=== PATIENT | female | born 1955 ===

== ENCOUNTER → 2019-12-26 10:12 | Outpatient (BNVA) | payer MEDICARE, MEDICAID, SELFPAY | PROVIDERS: Visit Provider Obstetrics & Gynecology | DX: Z76.89 Persons encountering health services in other specified circumstances (principal) ==

== ENCOUNTER 2020-09-02 12:38 | Outpatient (REF) | payer OTHER, SELFPAY ==
[2020-09-02 13:59] LABS: INTERNATIONAL NORM RATIO 1.2 (0.9-1.1); Prothrombin Time 13.7 SEC (9.9-13.0)
[2020-09-02 14:32] LABS: Alanine Aminotransferase 110 U/L (0-31); Albumin Level 4.2 g/dL (3.5-5.0); Alkaline Phosphatase 104 U/L (39-117); Anion Gap 14 (12-20); Aspartate Amino Transferase 82 U/L (5-31); Bilirubin Total 0.7 mg/dL (0.0-1.0); Blood Urea Nitrogen 19 mg/dL (9-16); Calcium 9.7 mg/dL (8.4-10.2); Carbon Dioxide 24 mmol/L (22-29); Chloride 106 mmol/L (96-108); Estimated Glomerular Filt Rate > 60; Glucose Random 107 mg/dL (60-115); Potassium 4.4 mmol/L (3.3-5.1); Sodium 140 mmol/L (135-145); Total Protein 7.2 g/dL (6.5-8.0)
[2020-09-04 03:57] LABS: LDL Cholesterol Direct 205 mg/dL (<100)
[2020-09-07 13:36] LABS: Vitamin D 25-OH, D2 <4 ng/mL; Vitamin D 25-OH, D3 21 ng/mL; Vitamin D 25-OH, Total 21 ng/mL (30-100)
== END 2020-09-02 12:39 | disposition home or self-care (01) ==
LOC: HO.HMGCLDS 12:38
PROVIDERS: PCP Internal Medicine; Visit Provider Internal Medicine
DX: E78.9 Disorder of lipoprotein metabolism, unspecified (principal); R79.89 Other specified abnormal findings of blood chemistry; Z79.01 Long term (current) use of anticoagulants
CPT/HCPCS: 36415; 80053; 82306; 83721; 85610

== ENCOUNTER 2021-07-12 09:32 | Outpatient (REF) | payer OTHER, SELFPAY ==
[2021-07-12 11:14] LABS: MANUAL DIFF FLAG NO
[2021-07-12 11:19] LABS: Basophils Percent Auto 0.7 % (0-2); Eosinophils Absolute Auto 0.2 X10*3/uL (0.0-0.4); Eosinophils Percent Auto 2.9 % (0-4); Hematocrit 46.4 % (37.0-47.0); Hemoglobin 14.7 g/dl (12.0-16.0); Imm Gran Abs Auto 0.03 X10*3/uL (0.00-0.03); Imm Gran Pct Auto 0.5 % (0.0-0.4); Lymphocytes Absolute Auto 1.3 X10*3/uL (1.2-4.9); Lymphocytes Percent Auto 22.7 % (20-40); Mean Corpuscular HGB Conc 31.7 g/dl (31.0-35.0); Mean Corpuscular Hemoglobin 29.6 pg (27.0-33.0); Mean Corpuscular Volume 93.4 fL (80.0-98.0); Mean Platelet Volume 12.3 fL (9.4-12.3); Monocytes Absolute Auto 0.5 X10*3/uL (0.1-1.2); Neutrophils Absolute Auto 3.8 x10*3/uL (2.0-8.3); Neutrophils Percent Auto 65.2 % (45-73); Platelet Count 248 X10*3/uL (160-400); Red Blood Count 4.97 X10*6/uL (4.20-5.50); Red Cell Distribution Width 14.5 % (11.0-16.0); White Blood Count 5.8 X10*3/uL (4.8-10.8)
[2021-07-12 11:26] LABS: INTERNATIONAL NORM RATIO 1.2 (0.9-1.1)
[2021-07-12 11:51] LABS: Alanine Aminotransferase 76 U/L (0-31); Albumin Level 4.2 g/dL (3.5-5.0); Alkaline Phosphatase 111 U/L (39-117); Anion Gap 16 (12-20); Aspartate Amino Transferase 53 U/L (5-31); Bilirubin Total 0.6 mg/dL (0.0-1.0); Blood Urea Nitrogen 19 mg/dL (9-16); Calcium 10.8 mg/dL (8.4-10.2); Carbon Dioxide 23 mmol/L (22-29); Chloride 103 mmol/L (96-108); Cholesterol 256 mg/dL; Estimated Glomerular Filt Rate > 60; Glucose Fasting 104 mg/dL (60-99); HDL Cholesterol 50 mg/dL; LDL Cholesterol Calculated 188 mg/dl; Potassium 4.3 mmol/L (3.3-5.1); Sodium 138 mmol/L (135-145); Total Protein 7.5 g/dL (6.5-8.0); Triglycerides 92 mg/dL
[2021-07-12 11:53] LABS: TSH reflex Free T4 2.04 uIU/mL (0.32-4.0)
== END 2021-07-12 09:33 | disposition home or self-care (01) ==
LOC: HO.HMGCLDS 09:32
PROVIDERS: Visit Provider Internal Medicine
DX: I09.9 Rheumatic heart disease, unspecified (principal); E78.9 Disorder of lipoprotein metabolism, unspecified; I10 Essential (primary) hypertension; R10.13 Epigastric pain; R79.89 Other specified abnormal findings of blood chemistry; Z91.19 Patient's noncompliance with other medical treatment and regimen; Z95.0 Presence of cardiac pacemaker; Z95.2 Presence of prosthetic heart valve; Z79.01 Long term (current) use of anticoagulants
CPT/HCPCS: 36415; 80053; 80061; 84443; 85025; 85610

== ENCOUNTER → 2021-08-02 14:05 | Outpatient (BNVA) | payer OTHER, SELFPAY | PROVIDERS: PCP Internal Medicine; Visit Provider Internal Medicine | DX: I09.9 Rheumatic heart disease, unspecified (principal); Z79.01 Long term (current) use of anticoagulants; Z51.81 Encounter for therapeutic drug level monitoring | CPT/HCPCS: 85610; 99202 ==

== ENCOUNTER → 2021-08-06 13:26 | Outpatient (BNVA) | payer OTHER, SELFPAY | PROVIDERS: PCP Internal Medicine; Visit Provider Internal Medicine | DX: I09.9 Rheumatic heart disease, unspecified (principal); Z95.0 Presence of cardiac pacemaker; Z95.2 Presence of prosthetic heart valve; Z79.01 Long term (current) use of anticoagulants; Z51.81 Encounter for therapeutic drug level monitoring | CPT/HCPCS: 85610; 99212 ==

== ENCOUNTER → 2021-08-09 11:11 | Outpatient (BNVA) | payer OTHER, SELFPAY | PROVIDERS: PCP Internal Medicine; Visit Provider Internal Medicine | DX: I09.9 Rheumatic heart disease, unspecified (principal); Z79.01 Long term (current) use of anticoagulants; Z95.0 Presence of cardiac pacemaker; Z95.2 Presence of prosthetic heart valve; Z51.81 Encounter for therapeutic drug level monitoring | CPT/HCPCS: 85610; 99211 ==

== ENCOUNTER → 2021-08-13 11:19 | Outpatient (BNVA) | payer OTHER, SELFPAY | PROVIDERS: PCP Internal Medicine; Visit Provider Internal Medicine | DX: I09.9 Rheumatic heart disease, unspecified (principal); Z79.01 Long term (current) use of anticoagulants; Z51.81 Encounter for therapeutic drug level monitoring | CPT/HCPCS: 85610; 99211 ==

== ENCOUNTER → 2021-08-19 09:19 | Outpatient (BNVA) | payer OTHER, SELFPAY | PROVIDERS: PCP Internal Medicine; Visit Provider Internal Medicine | DX: I09.9 Rheumatic heart disease, unspecified (principal); Z51.81 Encounter for therapeutic drug level monitoring; Z79.01 Long term (current) use of anticoagulants | CPT/HCPCS: 85610; 99211 ==

== ENCOUNTER → 2021-08-26 09:04 | Outpatient (BNVA) | payer OTHER, SELFPAY | PROVIDERS: PCP Internal Medicine; Visit Provider Internal Medicine | DX: I09.9 Rheumatic heart disease, unspecified (principal); Z51.81 Encounter for therapeutic drug level monitoring; Z79.01 Long term (current) use of anticoagulants | CPT/HCPCS: 85610; 99211 ==

== ENCOUNTER → 2021-09-02 09:15 | Outpatient (BNVA) | payer OTHER, SELFPAY | PROVIDERS: PCP Internal Medicine; Visit Provider Internal Medicine | DX: I09.9 Rheumatic heart disease, unspecified (principal); Z95.0 Presence of cardiac pacemaker; Z95.2 Presence of prosthetic heart valve; Z51.81 Encounter for therapeutic drug level monitoring; Z79.01 Long term (current) use of anticoagulants | CPT/HCPCS: 85610; 99211 ==

== ENCOUNTER → 2021-09-10 13:33 | Outpatient (BNVA) | payer OTHER, SELFPAY | PROVIDERS: PCP Internal Medicine; Visit Provider Internal Medicine | DX: I09.9 Rheumatic heart disease, unspecified (principal); Z95.0 Presence of cardiac pacemaker; Z95.2 Presence of prosthetic heart valve; Z51.81 Encounter for therapeutic drug level monitoring; Z79.01 Long term (current) use of anticoagulants | CPT/HCPCS: 85610; 99211 ==

== ENCOUNTER → 2021-09-14 11:28 | Outpatient (BNVA) | payer OTHER, SELFPAY | PROVIDERS: PCP Internal Medicine; Visit Provider Nurse Practitioner | DX: K21.9 Gastro-esophageal reflux disease without esophagitis (principal); Z12.11 Encounter for screening for malignant neoplasm of colon; D12.6 Benign neoplasm of colon, unspecified; R10.13 Epigastric pain; Z79.01 Long term (current) use of anticoagulants | CPT/HCPCS: 99202; 99212 ==

== ENCOUNTER → 2021-09-16 11:18 | Outpatient (BNVA) | payer OTHER, SELFPAY | PROVIDERS: PCP Internal Medicine; Visit Provider Internal Medicine | DX: I09.9 Rheumatic heart disease, unspecified (principal); Z79.01 Long term (current) use of anticoagulants | CPT/HCPCS: 85610; 99211 ==

== ENCOUNTER → 2021-09-23 10:00 | Outpatient (BNVA) | payer OTHER, SELFPAY | PROVIDERS: PCP Internal Medicine; Visit Provider Internal Medicine | DX: I09.9 Rheumatic heart disease, unspecified (principal); Z79.01 Long term (current) use of anticoagulants; Z51.81 Encounter for therapeutic drug level monitoring | CPT/HCPCS: 85610; 99211 ==

== ENCOUNTER → 2021-09-30 09:59 | Outpatient (BNVA) | payer OTHER, SELFPAY | PROVIDERS: PCP Internal Medicine; Visit Provider Internal Medicine | DX: I09.9 Rheumatic heart disease, unspecified (principal); Z79.01 Long term (current) use of anticoagulants; Z51.81 Encounter for therapeutic drug level monitoring | CPT/HCPCS: 85610; 99211 ==

== ENCOUNTER → 2021-10-15 10:17 | Outpatient (BNVA) | payer OTHER, SELFPAY | PROVIDERS: PCP Internal Medicine; Visit Provider Internal Medicine | DX: I09.9 Rheumatic heart disease, unspecified (principal); Z51.81 Encounter for therapeutic drug level monitoring; Z79.01 Long term (current) use of anticoagulants; Z95.0 Presence of cardiac pacemaker; Z95.2 Presence of prosthetic heart valve | CPT/HCPCS: 85610; 99211 ==

== ENCOUNTER → 2021-10-22 10:41 | Outpatient (BNVA) | payer OTHER, SELFPAY | PROVIDERS: PCP Internal Medicine; Visit Provider Internal Medicine | DX: I09.9 Rheumatic heart disease, unspecified (principal); Z79.01 Long term (current) use of anticoagulants; Z51.81 Encounter for therapeutic drug level monitoring | CPT/HCPCS: 85610; 99211 ==

== ENCOUNTER → 2021-11-01 11:38 | Outpatient (BNVA) | payer OTHER, SELFPAY | PROVIDERS: PCP Internal Medicine; Visit Provider Internal Medicine | DX: I09.9 Rheumatic heart disease, unspecified (principal); Z79.01 Long term (current) use of anticoagulants; Z51.81 Encounter for therapeutic drug level monitoring | CPT/HCPCS: 85610; 99212 ==

== ENCOUNTER → 2021-11-05 11:03 | Outpatient (BNVA) | payer OTHER, SELFPAY | PROVIDERS: PCP Internal Medicine; Visit Provider Internal Medicine | DX: I09.9 Rheumatic heart disease, unspecified (principal); Z79.01 Long term (current) use of anticoagulants; Z51.81 Encounter for therapeutic drug level monitoring | CPT/HCPCS: 85610; 99211 ==

== ENCOUNTER → 2021-11-11 08:55 | Outpatient (BNVA) | payer OTHER, SELFPAY | PROVIDERS: PCP Internal Medicine; Referring Provider Internal Medicine; Visit Provider Nurse Practitioner | DX: K21.9 Gastro-esophageal reflux disease without esophagitis (principal); D12.6 Benign neoplasm of colon, unspecified; R10.13 Epigastric pain; I09.9 Rheumatic heart disease, unspecified; Z51.81 Encounter for therapeutic drug level monitoring; Z79.01 Long term (current) use of anticoagulants | CPT/HCPCS: 85610; 99211; 99212 ==

== ENCOUNTER → 2021-11-24 10:18 | Outpatient (BNVA) | payer OTHER, SELFPAY | PROVIDERS: PCP Internal Medicine; Visit Provider Internal Medicine | DX: I09.9 Rheumatic heart disease, unspecified (principal); Z79.01 Long term (current) use of anticoagulants; Z51.81 Encounter for therapeutic drug level monitoring | CPT/HCPCS: 85610; 99211 ==

== ENCOUNTER → 2021-11-30 10:23 | Outpatient (BNVA) | payer OTHER, SELFPAY | PROVIDERS: PCP Internal Medicine; Visit Provider Internal Medicine | DX: I09.9 Rheumatic heart disease, unspecified (principal); Z79.01 Long term (current) use of anticoagulants; Z51.81 Encounter for therapeutic drug level monitoring | CPT/HCPCS: 85610; 99211 ==

== ENCOUNTER → 2021-12-03 10:26 | Outpatient (BNVA) | payer OTHER, SELFPAY | PROVIDERS: PCP Internal Medicine; Visit Provider Internal Medicine | DX: I09.9 Rheumatic heart disease, unspecified (principal); Z79.01 Long term (current) use of anticoagulants; Z51.81 Encounter for therapeutic drug level monitoring | CPT/HCPCS: 85610; 99211 ==

== ENCOUNTER → 2021-12-06 10:39 | Outpatient (BNVA) | payer OTHER, SELFPAY | PROVIDERS: PCP Internal Medicine; Visit Provider Internal Medicine | DX: I09.9 Rheumatic heart disease, unspecified (principal); Z79.01 Long term (current) use of anticoagulants; Z51.81 Encounter for therapeutic drug level monitoring | CPT/HCPCS: 85610; 99211 ==

== ENCOUNTER → 2021-12-14 10:38 | Outpatient (BNVA) | payer OTHER, SELFPAY | PROVIDERS: PCP Internal Medicine; Visit Provider Internal Medicine | DX: I09.9 Rheumatic heart disease, unspecified (principal); Z79.01 Long term (current) use of anticoagulants; Z51.81 Encounter for therapeutic drug level monitoring | CPT/HCPCS: 85610; 99212 ==

== ENCOUNTER 2022-08-09 10:58 | Outpatient (REF) | payer OTHER, SELFPAY ==
[2022-08-09 15:01] LABS: MANUAL DIFF FLAG NO
[2022-08-09 15:16] LABS: Basophils Absolute Auto 0.1 X10*3/uL (0.0-0.2); Basophils Percent Auto 0.7 % (0-2); Eosinophils Absolute Auto 0.3 X10*3/uL (0.0-0.4); Eosinophils Percent Auto 4.1 % (0-4); Hematocrit 41.5 % (37.0-47.0); Imm Gran Abs Auto 0.03 X10*3/uL (0.00-0.03); Imm Gran Pct Auto 0.4 % (0.0-0.4); Lymphocytes Absolute Auto 1.7 X10*3/uL (1.2-4.9); Lymphocytes Percent Auto 23.6 % (20-40); Mean Corpuscular HGB Conc 31.3 g/dl (31.0-35.0); Mean Corpuscular Hemoglobin 28.4 pg (27.0-33.0); Mean Corpuscular Volume 90.8 fL (80.0-98.0); Mean Platelet Volume 12.3 fL (9.4-12.3); Monocytes Absolute Auto 0.5 X10*3/uL (0.1-1.2); Monocytes Percent Auto 6.7 % (2-11); Neutrophils Absolute Auto 4.5 x10*3/uL (2.0-8.3); Neutrophils Percent Auto 64.5 % (45-73); Platelet Count 277 X10*3/uL (160-400); Red Blood Count 4.57 X10*6/uL (4.20-5.50); Red Cell Distribution Width 14.5 % (11.0-16.0)
[2022-08-09 15:31] LABS: Estimated Average Glucose 103 mg/dL; Hemoglobin A1C 118.4161 umol/L; Hemoglobin A1c % 5.2 %
[2022-08-09 15:47] LABS: Alanine Aminotransferase 16 U/L (0-31); Albumin Level 4.2 g/dL (3.5-5.0); Alkaline Phosphatase 70 U/L (39-117); Anion Gap 13 (12-20); Aspartate Amino Transferase 22 U/L (5-31); Bilirubin Total 0.4 mg/dL (0.0-1.0); Blood Urea Nitrogen 15 mg/dL (9-16); Calcium 10.3 mg/dL (8.4-10.2); Carbon Dioxide 23 mmol/L (22-29); Chloride 107 mmol/L (96-108); Estimated Glomerular Filt Rate > 60; Glucose Random 96 mg/dL (60-115); Potassium 4.3 mmol/L (3.3-5.1); Sodium 139 mmol/L (135-145); Total Protein 7.7 g/dL (6.5-8.0)
[2022-08-11 13:19] LABS: LDL Cholesterol Direct 145 mg/dL (<100)
== END 2022-08-09 10:59 | disposition home or self-care (01) ==
LOC: HO.HMGCLDS 10:58
PROVIDERS: PCP Internal Medicine; Visit Provider Internal Medicine
DX: E78.9 Disorder of lipoprotein metabolism, unspecified (principal); F33.9 Major depressive disorder, recurrent, unspecified; I09.9 Rheumatic heart disease, unspecified; I10 Essential (primary) hypertension; R73.9 Hyperglycemia, unspecified; Z79.01 Long term (current) use of anticoagulants
CPT/HCPCS: 36415; 80053; 83036; 83721; 85025

== ENCOUNTER 2023-07-12 09:42 | Outpatient (AMB) | payer OTHER, SELFPAY ==
--- NOTE | 2023-07-12 09:59 | AM.OFFWIN_ITS ---
Intake Vital Signs 07/12/23 10:00 Height 5 ft 4 in BP 142/80 H Blood Pressure Location Rt brachial Position Sitting Pulse 64 Pulse Source Pulse Oximeter Pulse Oximetry (%) 97 Intake Visit Reasons: EP UTI? Intake Note: pt is here for possible uti Patient Tobacco Use Status: Never used Tobacco Allergies penicillin G Allergy (Intermediate, Verified 07/12/23 09:59) rash Iodinated Contrast Media [IV Contrast Dye] Allergy (Unknown, Verified 07/12/23 09:59) Unknown hydrochlorothiazide Adverse Reaction (Intermediate, Verified 07/12/23 09:59) Vomiting seafood Allergy (Unknown, Uncoded 12/14/21 10:34) unknown-listed from another source Do you need a note to return to daycare/school/sports/work: No HPI HPI Comments History of Present Illness Details 68 y/o female patient who presents to [facility] with c/o Urinary symptoms PFSH Medical History Acid reflux Current use of anticoagulant therapy CVA (cerebral vascular accident) Depression Esophageal cancer GERD (gastroesophageal reflux disease) HTN (hypertension) Hx of hyperlipidemia Rheumatic heart disease Surgical History H/O colonoscopy History of cholecystectomy History of mitral valve replacement Family History Father Throat cancer Other Mental health disorder Substance use disorder Social History Housing: Apartment Alcohol intake: current Patient Tobacco Use Status: Never used Tobacco e-Cigarette/Vaping Use: Never Used service: No Current occupational status: retired Sexual orientation: Straight/Heterosexual Gender identity: Female Cognitive needs: No Hearing needs: No Vision needs: Yes Review of Systems Const All systems reviewed & are unremarkable except as noted in HPI and below Physical Exam Vital Signs: Last Vital Signs Pulse 64 07/12/23 10:00 BP 142/80 H 07/12/23 10:00 Pulse Ox 97 07/12/23 10:00 Const General: comfortable and no acute distress Orientation/consciousness: patient oriented x3 Limitations: language barrier Neuro General: patient oriented x3 and gait normal Psych Speech and movement: Normal speech and movement present Assessment & Plan Assessment & Plan (1) Cystitis: Code(s): N30.90 - Cystitis, unspecified without hematuria Plan: - Hydrate with plenty fluids. - Take medicines as directed. Medications: New nitrofurantoin monohyd/m-cryst 100 mg (Macrobid) must administer with a meal/food 100 mg PO Q12H 14 caps 0RF 7 days N30.90 - Cystitis, unspecified without hematuria Coding Level of Care Code Est Pt Level 3 (94503) Diagnoses Cystitis N30.90 Time Spent (min) 15
[2023-07-12 10:00] VITALS: BP 142/80; PULSE 64; O2SAT 97
== END 2023-07-12 10:25 | disposition home or self-care (01) ==
PROVIDERS: PCP Internal Medicine; Visit Provider Nurse Practitioner Family
DX: N30.90 Cystitis, unspecified without hematuria (principal)
CPT/HCPCS: 99213

== ENCOUNTER 2023-08-22 11:06 | Outpatient (AMB) | payer OTHER, SELFPAY ==
[2023-08-22 11:09] VITALS: BP 178/80; PULSE 68; O2SAT 98; BMI 26.0
--- NOTE | 2023-08-22 11:09 | MHC.PC.OV ---
Vital Signs 08/22/23 11:09 Height 5 ft 4 in Weight 151 lb 8 oz BMI 26.0 BP 178/80 H Blood Pressure Location Lt brachial Position Sitting Pulse 68 Pulse Source Pulse Oximeter Pulse Oximetry (%) 98 Oxygen Delivery Method Room Air Intake Visit Reasons: PE Allergies penicillin G Allergy (Intermediate, Verified 08/22/23 12:04) rash Iodinated Contrast Media [IV Contrast Dye] Allergy (Unknown, Verified 08/22/23 12:04) Unknown hydrochlorothiazide Adverse Reaction (Intermediate, Verified 08/22/23 12:04) Vomiting seafood Allergy (Unknown, Uncoded 12/14/21 10:34) unknown-listed from another source Medication List - Last Reconciled 08/22/23 by Callum Muñoz MD [Blood pressure monitor As directed] cetirizine (Zyrtec) 10 mg PO DAILY 90 days diltiazem HCl CD 120 mg PO DAILY 90 days naphazoline-pheniramine 0.025-0.3 % (Naphcon-A) 1 drp ophthalmic (eye) BID-QID PRN 30 days nitrofurantoin monohyd/m-cryst 100 mg (Macrobid) 100 mg PO Q12H 7 days pantoprazole (Protonix) 40 mg PO DAILY rosuvastatin 10 mg PO DAILY 90 days warfarin See Protocol Per protocol, up to 2 tabs daily orally daily; 30 days wheat dextrin (Benefiber Healthy Shape) grams PO Tobacco use date assessed: 08/22/23 Fall risk assessment: No Falls in past year Last assessed Fall Risk: 08/22/23 Dental Screening Dental Screen Date: 08/22/23 Did you have a dental visit in the last 12 months?: Yes Did you have a dental problem in the last 6 months where you did not have access to dental care?: No Was dental information given to patient?: Patient has dentist HPI PE HPI Details Patient is a 68-year-old female came in today for physical examination with her son Who will be living with her and taking care of her Mammogram was April of this year at [facility] Patient says that she has a history of gastric ulcer and she is having epigastric pain Need to see Gastroenterology Patient also have rheumatic heart disease and a pacemaker She is seeing process area supervisor at [facility] but I do not think she is currently seeing anyone I have placed a referral for [facility] Her blood pressure is elevated she is supposed to be on Cardizem 120 mg which patient is not taking Explained to her that she can have a stroke with such a high pressure, I would recommend that start taking medication regularly. She also chronic right ear pain and need to see the ear doctor On examination today I did not see any infection Follow-up 3 months physical exam 1 year [facility] Medical History GERD (gastroesophageal reflux disease) HTN (hypertension) Depression CVA (cerebral vascular accident) Esophageal cancer Rheumatic heart disease Current use of anticoagulant therapy Acid reflux Hx of hyperlipidemia Surgical History History of mitral valve replacement H/O colonoscopy History of cholecystectomy Family History Father Throat cancer Other Mental health disorder Substance use disorder Social History Housing: Apartment Alcohol intake: current Patient Tobacco Use Status: Never used Tobacco e-Cigarette/Vaping Use: Never Used service: No Current occupational status: retired Sexual orientation: Straight/Heterosexual Gender identity: Female Cognitive needs: No Hearing needs: No Vision needs: Yes Questionnaire PHQ-9 Over the last 2 weeks, how often have you been bothered by any of the following problems? 08273 - PHQ-9 Billing: Patient declined-do not bill Source: Developed by Drs. Wilberto Wilson, Radha Page, Rufino Anand and colleagues, with an educational navid from [employer] Thrive Questionnaire Date Thrive assessed: 10/27/21 AUDIT C Alcohol Use Questionnaire (AUDIT-C) 1. How often do you have a drink containing alcohol?: Never 3. How often do you have six or more drinks on one occasion?: Never Total Score: 0 Score Reviewed/Action Taken: Yes IVON-7 AMB Questionnaire IVON-7 Date IVON - 7 assessed: 10/27/21 Source: Developed by Drs. Wilberto Wilson, Radha Page, Rufino Anand and colleagues, with an educational navid from [employer] Review of Systems Const Denies chills, Denies fever(s) and Denies headache(s) Eyes Denies blurry vision ENT Denies headache(s), Denies nasal discharge, Denies nasal obstruction, Denies odynophagia and Denies sinus pain Card Denies chest pain at rest and Denies chest pain with activity Resp Denies cough and Denies hemoptysis GI Denies diarrhea, Denies odynophagia, Denies vomiting and Denies hematemesis Reports as per HPI Musc Denies abnormal gait Skin/Breast Reports as per HPI Neuro Denies Neuro-related abnormal movements, Denies Abnormal speech present, Denies abnormal gait, Denies headache(s) and Denies Sensory deficit (Neuro) Psych Denies mood swings and Denies paranoia Endo Reports as per HPI Alonso/Lymph Reports as per HPI Aller/Immun Reports as per HPI Physical exam (Primary Care) Vital Signs: Last Vital Signs Pulse 68 08/22/23 11:09 BP 178/80 H 08/22/23 11:09 Pulse Ox 98 08/22/23 11:09 Oxygen Delivery Method Room Air 08/22/23 11:09 BMI result Body Mass Index 26.0 Tobacco/Smoking Status: Tobacco use Status Tobacco use date assessed 08/22/23 08/22/23 12:04 Patient Tobacco Use Status Never used Tobacco 08/22/23 11:12 e-Cigarette/Vaping Use Never Used 08/22/23 11:12 Thrive Assessment: Date of Thrive Assessment Date Thrive assessed 10/27/21 08/22/23 11:12 Const General: cooperative, comfortable and no acute distress Orientation/consciousness: patient oriented x3 HENMT Head: Yes normocephalic and Yes atraumatic Eyes General: appearance normal, both eyes and all related structures Pupils: Equal, round and reactive pupils present EOM: EOMs intact bilaterally Neck Neck: Yes supple and No lymphadenopathy Thyroid: Thyroid normal Lymphatic: no lymphadenopathy noted Resp Effort & Inspection: normal respiratory effort and able to speak in complete sentences Auscultation: clear to auscultation bilaterally Cardio Heart sounds: S1 normal heart sound present and S2 normal heart sound present GI Palpation (GI): Soft to palpation and nontender Auscultation: normal bowel sounds General: Yes no CVA tenderness Back/Spine/Pelvis Back: no CVA tenderness Skin General skin exam: elasticity normal and turgor normal Neuro General: patient oriented x3 and gait normal Cranial nerves: Yes Equal, round and reactive pupils present Speech: No Abnormal speech present Sensory Exam: No Sensory deficit (Neuro) Coordination: Romberg test negative Extrem General: Yes normal exam except as noted and No edema Assessment and Plan Assessment & Plan (1) Encounter for general adult medical examination with abnormal findings: Code(s): Z00.01 - Encounter for general adult medical examination with abnormal findings (2) Hypertension, essential: Code(s): I10 - Essential (primary) hypertension (3) Lipid disorder: Code(s): E78.9 - Disorder of lipoprotein metabolism, unspecified (4) LFT elevation: Code(s): R79.89 - Other specified abnormal findings of blood chemistry (5) Rheumatic heart disease: Code(s): I09.9 - Rheumatic heart disease, unspecified (6) GERD (gastroesophageal reflux disease): Code(s): K21.9 - Gastro-esophageal reflux disease without esophagitis Qualifiers: Esophagitis presence: without esophagitis Qualified Code(s): K21.9 - Gastro-esophageal reflux disease without esophagitis (7) Epigastric pain: Code(s): R10.13 - Epigastric pain (8) Status post mitral valve replacement: Code(s): Z95.2 - Presence of prosthetic heart valve (9) Cardiac pacemaker: Code(s): Z95.0 - Presence of cardiac pacemaker (10) Chronic right ear pain: Code(s): H92.01 - Otalgia, right ear; G89.29 - Other chronic pain Plan Patient is a 68-year-old female came in today for physical examination with her son Who will be living with her and taking care of her Mammogram was April of this year at [facility] Patient says that she has a history of gastric ulcer and she is having epigastric pain Need to see Gastroenterology Patient also have rheumatic heart disease and a pacemaker She is seeing process area supervisor at [facility] but I do not think she is currently seeing anyone I have placed a referral for [facility] Her blood pressure is elevated she is supposed to be on Cardizem 120 mg which patient is not taking Explained to her that she can have a stroke with such a high pressure, I would recommend that start taking medication regularly. She also chronic right ear pain and need to see the ear doctor On examination today I did not see any infection Follow-up 3 months physical exam 1 year Patient declined breast exam failed walk Orders: Orders Comprehensive Met. Panel Today E78.9 - Disorder of lipoprotein metabolism, unspecified, F33.9 - Major depressive disorder, recurrent, unspecified, I09.9 - Rheumatic heart disease, unspecified, I10 - Essential (primary) hypertension, K21.9 - Gastro-esophageal reflux disease without esophagitis, R79.89 - Other specified abnormal findings of blood chemistry, Z00.01 - Encounter for general adult medical examination with abnormal findings Complete Blood Count Auto Diff Today E78.9 - Disorder of lipoprotein metabolism, unspecified, F33.9 - Major depressive disorder, recurrent, unspecified, I09.9 - Rheumatic heart disease, unspecified, I10 - Essential (primary) hypertension, K21.9 - Gastro-esophageal reflux disease without esophagitis, R79.89 - Other specified abnormal findings of blood chemistry, Z00.01 - Encounter for general adult medical examination with abnormal findings LDL Cholesterol Direct Today E78.9 - Disorder of lipoprotein metabolism, unspecified, F33.9 - Major depressive disorder, recurrent, unspecified, I09.9 - Rheumatic heart disease, unspecified, I10 - Essential (primary) hypertension, K21.9 - Gastro-esophageal reflux disease without esophagitis, R79.89 - Other specified abnormal findings of blood chemistry, Z00.01 - Encounter for general adult medical examination with abnormal findings Referrals Gastroenterology Referral K21.9 - Gastro-esophageal reflux disease without esophagitis, R10.13 - Epigastric pain Cardiology Referral I09.9 - Rheumatic heart disease, unspecified, Z95.0 - Presence of cardiac pacemaker, Z95.2 - Presence of prosthetic heart valve Ear/Nose/Throat Referral G89.29 - Other chronic pain, H92.01 - Otalgia, right ear Coding Level of Care Code Est Pt Level 4 (37423) Est Pt Prev Care >65y(08086) Diagnoses Encounter for general adult medical examination with abnormal findings Z00.01 Hypertension, essential I10 Lipid disorder E78.9 LFT elevation R79.89 Rheumatic heart disease I09.9 Gastroesophageal reflux disease without esophagitis K21.9 Esophagitis presence: without esophagitis Epigastric pain R10.13 Status post mitral valve replacement Z95.2 Cardiac pacemaker Z95.0 Chronic right ear pain H92.01; G89.29
== END 2023-08-22 12:24 | disposition home or self-care (01) ==
PROVIDERS: PCP Internal Medicine; Visit Provider Internal Medicine
DX: Z00.00 Encounter for general adult medical examination without abnormal findings (principal); I10 Essential (primary) hypertension; E78.9 Disorder of lipoprotein metabolism, unspecified; R79.89 Other specified abnormal findings of blood chemistry; I09.9 Rheumatic heart disease, unspecified; K21.9 Gastro-esophageal reflux disease without esophagitis; R10.13 Epigastric pain; Z95.2 Presence of prosthetic heart valve; Z95.0 Presence of cardiac pacemaker; H92.01 Otalgia, right ear; G89.29 Other chronic pain
CPT/HCPCS: 99397

== ENCOUNTER 2024-04-10 13:20 | Outpatient (REF) | payer OTHER, SELFPAY ==
--- NOTE | ~2024-04-10 | XR_ITS ---
EXAMINATION: XR CHEST CLINICAL INFORMATION: J18.9 - Pneumonia, unspecified organism COMPARISON: None available. TECHNIQUE: 2 views of the chest were obtained. FINDINGS: Pulmonary reticular pattern. Prominence of the interstitial lung markings extending from the perihilar regions to the periphery of the lungs. There is a lobulated opacity in the right hemithorax likely posterior chest and possibly in the pleura compartment. Sternal wires. There is a metallic ring in the lower cardiomediastinal silhouette. Calcified plaque thoracic aorta. Multilevel thoracic spondylosis. XR/XR chest 2V IMPRESSION: Acute on chronic airspace disease versus pulmonary edema and questionable loculated right-sided pleural effusion versus pleural thickening. Recommend IV contrast enhanced CT chest for further imaging evaluation. Electronically signed by: Tonny Kern MD 04/11/2024 01:44 PM EST
--- OUTSIDE RECORDS SUMMARY | 2024-04-10 14:28 | XMS_ITS | Encounter Summary ---
Author Organization [facility] Address [address] [place] [address] Care Team Providers Care Speech And Language Tutor Name Role Phone Chris Potts Primary Care Provider Callum Desir MD Primary Care Provider Unavailgenesis white Reason for Visit * Reason Onset Date Comments Call From Patient Family 08/28/2018 Encounter Details Date Type Department Care Team Description 08/28/2018 Telephone Gastroenterology - [place] [address] [place] [address] Varun Price PA-C Call From Patient Family Social History Tobacco Use Types Packs/Day Years Used Date Smoking Tobacco: Former Smokeless Tobacco: Never Alcohol Use Standard Drinks/Week Comments Yes 0 (1 standard drink = 0.6 oz pur e alcohol) sometimes Sex Assigned at Date Recorded Not on file documented as of this encounter Miscellaneous Notes * Telephone Encounter - Jaky Bush - 08/29/2018 10:32 AM EDT Took call from son who is still looking for abx. Patient is seeing coumadin nurse tomorrow, 08/30/18. Explained that they need that appt before they can get abx. Son understands. * Telephone Encounter - Virginia Fuller M.A. - 08/28/2018 1:30 PM EDT Spoke with son he is aware that Sheela need to go to the Coumadin clinic today to see Joanna so she can adjust her coumadin to begin the H-pylori antibiotics. I also advised him the she need to make an appointment with her Exercise Manager and PCP to figure out who and how her care will be managed from her. Kimani understood the plan and was going to speak with his mother and bring her to the clinic to see Joanna lutz/nathalia * Telephone Encounter - Nati Meier - 08/28/2018 11:29 AM EDT Caller requesting call back from provider: Is the caller the patient? NO If caller is not the patient, what is the callers name? Kimani Callers relationship to patient? 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 Caller offered to speak with the nurse for assistance: YES Response: Patient offered to speak with nurse for assistance and patient agreed. Message forwarded to nurse. documented in this encounter Plan of Treatment Not on file documented as of this encounter Visit Diagnoses Not on filedocumented in this encounter Care Teams Speech And Language Tutor Relationship Specialty Start Date End Date Chris Potts PCP - General Internal Medicine 06/11/13 03/16/22 Callum Muñoz MD PCP - General Internal Medicine 03/17/22 documented as of this encounter
--- OUTSIDE RECORDS SUMMARY | 2024-04-10 14:28 | XMS_ITS | Encounter Summary ---
Author Organization [facility] Address [address] [place] [address] Care Team Providers Care Garden Consultant Name Role Phone Chris Potts Primary Care Provider Callum Desir MD Primary Care Provider Cyndie white Encounter Details Date Type Department Care Team Description 04/05/2017 [facility] Medical Records [address] [place] [id number] Abstract, Provider Social History Tobacco Use Types Packs/Day Years Used Date Smoking Tobacco: Former Smokeless Tobacco: Never Alcohol Use Standard Drinks/Week Comments Yes 0 (1 standard drink = 0.6 oz pur e alcohol) sometimes Sex Assigned at Date Recorded Not on file documented as of this encounter Plan of Treatment Not on file documented as of this encounter Visit Diagnoses Not on filedocumented in this encounter Care Teams Garden Consultant Relationship Specialty Start Date End Date Chris Potts PCP - General Internal Medicine 06/11/13 03/16/22 Callum Muñoz MD PCP - General Internal Medicine 03/17/22 documented as of this encounter
--- OUTSIDE RECORDS SUMMARY | 2024-04-10 14:28 | XMS_ITS | Clinical Summary ---
Author Organization [facility] Address [address] [place] [address] Phone Care Team Providers Care Pier Hand Name Role Phone Callum Ritter MD Primary Care Provider [phone] Allergies Active Allergy Reactions Criticality Noted Date [...] - 03/10/2024 11:39 AM EST Hospital Encounter [facility] Urology [address] [place] [address] Gale Sandoval MD Jones, Christopher, [...] D esophagitis UPPER GASTROINTESTINAL ENDOSCOPY 08/08/2018 PROCEDURE: [place] UPPER GI ENDOSCOPY PERFORMED; COMMENT: severe erosive [...] K/mcL LAB HEMETOLOGY METHOD 03/10/2024 7:38 AM [facility] RBC 3.90 3.80 - 4.80 M/[facility] LAB HEMETOLOGY METHOD 03/10/2024 7:38 AM [facility] Hemoglobin 10.6(L) 11.5 - 16.0 g/dL LAB HEMETOLOGY METHOD 03/10/2024 7:38 AM [facility] Hematocrit 34.1(L) 35.0 - 47.0 % LAB HEMETOLOGY METHOD 03/10/2024 7:38 AM [facility] MCV 88.3 79.0 - 98.0 FL LAB HEMETOLOGY METHOD 03/10/2024 7:38 AM [facility] MCH 27.5 27.0 - 32.0 pcg LAB HEMETOLOGY METHOD 03/10/2024 7:38 AM [facility] MCHC 31.1(L) 32.0 - 37.0 g/dL LAB HEMETOLOGY METHOD 03/10/2024 7:38 AM [facility] RDW 15.3(H) 11.0 - 15.0 % LAB HEMETOLOGY METHOD 03/10/2024 7:38 AM [facility] Platelets 484(H) 130 - 400 K/mcL LAB HEMETOLOGY METHOD 03/10/2024 7:38 AM [facility] MPV 10.5 7.0 - 11.0 FL LAB HEMETOLOGY METHOD 03/10/2024 7:38 AM [facility] NRBC 0.0 <1.0 % LAB HEMETOLOGY METHOD 03/10/2024 7:38 AM [facility] NRBC Absolute 0.00 <0.10 K/mcL LAB HEMETOLOGY METHOD 03/10/2024 7:38 AM [facility] Neutrophils Relative 73.1 % LAB HEMETOLOGY METHOD 03/10/2024 7:38 AM [facility] Lymphocytes Relative 14.6 % LAB HEMETOLOGY METHOD 03/10/2024 7:38 AM [facility] Monocytes Relative 5.7 % LAB HEMETOLOGY METHOD 03/10/2024 7:38 AM [facility] Eosinophils Relative 1.9 % LAB HEMETOLOGY METHOD 03/10/2024 7:38 AM [facility] Basophils Relative 0.5 % LAB HEMETOLOGY METHOD 03/10/2024 7:38 AM [facility] Immature Granulocytes Relative 4.2 % LAB HEMETOLOGY METHOD 03/10/2024 7:38 AM [facility] Neutrophils Absolute 9.48(H) 1.50 - 7.00 K/mcL LAB HEMETOLOGY METHOD 03/10/2024 7:38 AM [facility] Lymphocytes Absolute 1.89 1.00 - 5.00 K/mcL LAB HEMETOLOGY METHOD 03/10/2024 7:38 AM EST [facility] Monocytes Absolute 0.74 0.20 - 1.00 K/[facility] LAB HEMETOLOGY METHOD 03/10/2024 7:38 AM EST [facility] Eosinophils Absolute 0.25 0.00 - 0.50 K/[facility] LAB HEMETOLOGY METHOD 03/10/2024 7:38 AM EST [facility] Basophils Absolute 0.07 0.00 - 0.20 K/[facility] LAB HEMETOLOGY METHOD 03/10/2024 7:38 AM EST [facility] Immature Granulocytes Absolute 0.54(H) 0.00 - 0.03 K/[facility] LAB HEMETOLOGY METHOD 03/10/2024 7:38 AM EST [facility] Blood Venous blood specimen / Unknown Venipuncture / Unknown 03/10/2024 5:59 AM EST 03/10/2024 7:06 AM EST us Jaxson Lawler MD LAB BLOOD ORDERABLES Final Resul t [facility] [address] [place] [address], [place] [phone] * (ABNORMAL) Prothrombin time with INR (03/10/2024 5:59 AM EST) Only the most recent of9 resultswithin the time period is included. Protime 20.8(H) 10.6 - 13.9 sec LAB COAGULATION METHOD 03/10/2024 7:44 AM EST [facility] INR 1.7 LAB COAGULATION METHOD 03/10/2024 7:44 AM EST [facility] Blood Venous blood specimen / Unknown Venipuncture / Unknown 03/10/2024 5:59 AM EST 03/10/2024 7:06 AM EST us Key Kirby NP LAB BLOOD ORDERABLES Final Res ult [facility] [address] [place] [address], * Basic metabolic panel (03/10/2024 5:59 AM EST) Only the most recent of7 resultswithin the time period is included. Sodium 135 133 - 145 mmol/L LAB CHEMISTRY METHOD 03/10/2024 8:07 AM [facility] Potassium 4.9 3.5 - 5.5 mmol/L LAB CHEMISTRY METHOD 03/10/2024 8:07 AM [facility] Chloride 102 96 - 110 mmol/L LAB CHEMISTRY METHOD 03/10/2024 8:07 AM [facility] CO2 26 21 - 32 mmol/L LAB CHEMISTRY METHOD 03/10/2024 8:07 AM [facility] Anion Gap 7 3 - 11 LAB CHEMISTRY METHOD 03/10/2024 8:07 AM [facility] Glucose 92 70 - 100 mg/dL LAB CHEMISTRY METHOD 03/10/2024 8:07 AM [facility] BUN 17 5 - 25 mg/dL LAB CHEMISTRY METHOD 03/10/2024 8:07 AM [facility] Creatinine 0.72 0.50 - 1.10 mg/dL LAB CHEMISTRY METHOD 03/10/2024 8:07 AM [facility] eGFR 90 >=60 mL/min/1. 73m2 LAB CHEMISTRY METHOD 03/10/2024 8:07 AM [facility] Comment:Calculation based on the??Chronic Kidney Disease Epidemiology Collaboration (CKD-EPI) equation refit??without adjustment for race. BUN/Creatinine Ratio 23.6 LAB CHEMISTRY METHOD 03/10/2024 8:07 AM [facility] Calcium 8.9 8.5 - 10.5 mg/dL LAB CHEMISTRY METHOD 03/10/2024 8:07 AM [facility] Blood Venous blood specimen / Unknown Venipuncture / Unknown 03/10/2024 5:59 AM EST 03/10/2024 7:06 AM EST Jaxson Lawler MD LAB BLOOD ORDERABLES Final Resul t [facility] [address] [place] [address], [place] [phone] * (ABNORMAL) Manual differential (03/09/2024 5:52 AM EST) Only the most recent of7 resultswithin the time period is included. Neutrophils % 78.0 % LAB HEMETOLOGY METHOD 03/09/2024 7:53 AM [facility] Bands % 1.0 % LAB HEMETOLOGY METHOD 03/09/2024 7:53 AM [facility] Lymphocytes % 11.0 % LAB HEMETOLOGY METHOD 03/09/2024 7:53 AM [facility] Reactive Lymphocyte 1.00 % LAB HEMETOLOGY METHOD 03/09/2024 7:53 AM [facility] Monocytes % 4.0 % LAB HEMETOLOGY METHOD 03/09/2024 7:53 AM [facility] Eosinophils % 3.0 % LAB HEMETOLOGY METHOD 03/09/2024 7:53 AM [facility] Basophils % 2.0 % LAB HEMETOLOGY METHOD 03/09/2024 7:53 AM [facility] Metamyelocytes % 1.0(H) % LAB HEMETOLOGY METHOD 03/09/2024 7:53 AM [facility] Neutrophils Absolute Manual 8.58(H) 1.50 - 7.00 K/mcL LAB HEMETOLOGY METHOD 03/09/2024 7:53 AM [facility] Bands Absolute Manual 0.11(H) 0.00 - 0.00 K/mcL LAB HEMETOLOGY METHOD 03/09/2024 7:53 AM [facility] Lymphocytes Absolute 1.21 1.00 - 5.00 K/mcL LAB HEMETOLOGY METHOD 03/09/2024 7:53 AM [facility] Reactive Lymph Abs Manual 0.11(H) 0.00 - 0.00 lym LAB HEMETOLOGY METHOD 03/09/2024 7:53 AM [facility] Monocytes Absolute Manual 0.44 0.20 - 1.00 K/mcL LAB HEMETOLOGY METHOD 03/09/2024 7:53 AM [facility] Eosinophils Absolute Manual 0.33 0.00 - 0.50 K/mcL LAB HEMETOLOGY METHOD 03/09/2024 7:53 AM [facility] Basophils Absolute Manual 0.22(H) 0.00 - 0.20 K/mcL LAB HEMETOLOGY METHOD 03/09/2024 7:53 AM [facility] Metamyelocytes Absolute Manual 0.11(H) 0.00 - 0.00 K/mcL LAB HEMETOLOGY METHOD 03/09/2024 7:53 AM [facility] Rbc Morphology See comment( A) Consistent with indices, Normal for LAB HEMETOLOGY METHOD 03/09/2024 7:53 AM [facility] Comment:RBC: Morphology agre es with CBC Platelet Morphology - WAM See Note(A) Normal LAB HEMETOLOGY METHOD 03/09/2024 7:53 AM [facility] Comment:PLT: Normal Blood Venous blood specimen / Unknown Venipuncture / Unknown 03/09/2024 5:52 AM EST 03/09/2024 6:58 AM EST us Jaxson Lawler MD LAB BLOOD ORDERABLES Final Resul t [facility] [address] [place] [address], [place] [phone] * Lavender tube (03/08/2024 6:52 AM EST) Only the most recent of4 resultswithin the time period is included. Extra Tube Hold for add-ons. 03/08/2024 9:01 AM EST [facility] Comment:Auto resulted. Blood Venous blood specimen / Unknown Venipuncture / Unknown 03/08/2024 6:52 AM EST 03/08/2024 7:45 AM EST Jaxson Lawler MD LAB BLOOD ORDERABLES Final Resul t Performing Organization Address [facility] de Phone Number [facility] [address] [place] [address], [place] [phone] * XR Esophagram (03/07/2024 3:09 PM EST) [...] Signed Date: 03/08/2024 08:02 ET Workstation ID: [id number] Transcribed By: Self Edit Transcribed Date: 03/07/2024 15:34 ET Resident/PA/LINE PREP COOK: Arianne Hobbs Narrative 03/08/2024 8:02 AM EST FINDINGS: Double contrast esophagram performed. Exam limited due to patient inability to stand or lay prone. COMPARISON: No prior esophagram imaging HISTORY: Patient is a 68-year-old female with history of aspiration, esophagectomy with gastric pull-through. Access Registrar radiographs: None Effervescent crystals were administered orally. [...] with history of aspiration,esophagectomy with gastric pull-through. Access Registrar radiographs: None Effervescent crystals were administered orally. [...] Signed Date: 03/08/2024 08:02 ET Workstation ID: [id number] Transcribed By: Self Edit Transcribed Date: 03/07/2024 15:34 ET Resident/PA/LINE PREP COOK: Arianne Hobbs us Jaxson Lawler MD IMG FLUOROSCOPY PROCEDURES Final Result * SST tube (03/06/2024 5:49 AM EST) Only the most recent of2 resultswithin the time period is included. Pathologist [facility] Extra Tube Hold for add-ons. 03/06/2024 8:01 AM EST [facility] Comment:Auto resulted. Blood Venous blood specimen / Unknown Venipuncture / Unknown 03/06/2024 5:49 AM EST 03/06/2024 6:54 AM EST us Jaxson Lawler MD LAB BLOOD ORDERABLES Final Resul t [facility] [address] [place] [address], [place] [phone] * (ABNORMAL) C-reactive protein (03/06/2024 5:49 AM EST) Only the most recent of2 resultswithin the time period is included. Pathologist [facility] C-Reactive Protein 9.93(H) <=0.50 mg/dL LAB CHEMISTRY METHOD 03/06/2024 9:56 AM EST [facility] Blood Venous blood specimen / Unknown Venipuncture / Unknown 03/06/2024 5:49 AM EST 03/06/2024 6:54 AM EST us Jaxson Lawler MD LAB BLOOD ORDERABLES Final Resul t [facility] [address] [place] [address], * XR Chest 1 View (03/04/2024 1:10 [...] Signed Date: 03/06/2024 09:23 ET Workstation ID: [id number] Transcribed By: Self Edit Transcribed Date: 03/06/2024 [...] Signed Date: 03/06/2024 09:23 ET Workstation ID: [id number] Transcribed By: Self Edit Transcribed Date: 03/06/2024 09:21 ET Jaxson Lawler MD IMG XR PROCEDURES Final Result * Thyroid stimulating hormone (03/03/2024 6:12 AM EST) [facility] TSH 1.36 0.40 - 4.00 mcIU/mL LAB CHEMISTRY METHOD 03/03/2024 2:53 PM EST [facility] Blood Venous blood specimen / Unknown Venipuncture / Unknown 03/03/2024 6:12 AM EST 03/03/2024 6:42 AM EST Kaitlin Desai MD LAB BLOOD ORDERABLES Final Res ult [facility] [address] [place] [address], [place] [phone] * MRSA molecular study (03/02/2024 10:15 AM EST) [facility] MRSA Screen PCR Not Detected Not Detected LAB MICROBIOLOGY METHOD 03/02/2024 12:43 PM EST [facility] Swab Nasopharyngeal structure / Unknown Non-blood Collection / Unknown 03/02/2024 10:15 AM EST 03/02/2024 10:38 AM EST us Key Kirby NP LAB MICROBIOLOGY - GENERAL ORD ERABLES Final Result [facility] [address] [place] [address], [place] [phone] * (ABNORMAL) Comprehensive metabolic panel (03/02/2024 6:46 AM EST) Sodium 133 133 - 145 mmol/L LAB CHEMISTRY METHOD 03/02/2024 7:23 AM [facility] Potassium 3.7 3.5 - 5.5 mmol/L LAB CHEMISTRY METHOD 03/02/2024 7:23 AM [facility] Chloride 102 96 - 110 mmol/L LAB CHEMISTRY METHOD 03/02/2024 7:23 AM [facility] CO2 23 21 - 32 mmol/L LAB CHEMISTRY METHOD 03/02/2024 7:23 AM [facility] Anion Gap 8 3 - 11 LAB CHEMISTRY METHOD 03/02/2024 7:23 AM [facility] Glucose 114(H) 70 - 100 mg/dL LAB CHEMISTRY METHOD 03/02/2024 7:23 AM [facility] BUN 34(H) 5 - 25 mg/dL LAB CHEMISTRY METHOD 03/02/2024 7:23 AM [facility] Creatinine 1.14(H) 0.50 - 1.10 mg/dL LAB CHEMISTRY METHOD 03/02/2024 7:23 AM [facility] eGFR 52(L) >=60 mL/min/1. 73m2 LAB CHEMISTRY METHOD 03/02/2024 7:23 AM [facility] Comment:Calculation based on the??Chronic Kidney Disease Epidemiology Collaboration (CKD-EPI) equation refit??without adjustment for race. BUN/Creatinine Ratio 29.8 LAB CHEMISTRY METHOD 03/02/2024 7:23 AM [facility] Calcium 8.4(L) 8.5 - 10.5 mg/dL LAB CHEMISTRY METHOD 03/02/2024 7:23 AM [facility] AST (SGOT) 51(H) 10 - 42 unit/L LAB CHEMISTRY METHOD 03/02/2024 7:23 AM [facility] ALT (SGPT) 58 10 - 60 unit/L LAB CHEMISTRY METHOD 03/02/2024 7:23 AM [facility] Alkaline Phosphatase 135(H) 42 - 121 unit/L LAB CHEMISTRY METHOD 03/02/2024 7:23 AM [facility] Total Protein 6.4 6.0 - 8.0 g/dL LAB CHEMISTRY METHOD 03/02/2024 7:23 AM [facility] Albumin 2.5(L) 3.2 - 5.0 g/dL LAB CHEMISTRY METHOD 03/02/2024 7:23 AM [facility] Total Bilirubin 0.7 0.0 - 1.4 mg/dL LAB CHEMISTRY METHOD 03/02/2024 7:23 AM [facility] Blood Venous blood specimen / Unknown Venipuncture / Unknown 03/02/2024 6:46 AM EST 03/02/2024 6:51 AM EST us Ra Lujan MD LAB BLOOD ORDERABLES Final Result [facility] [address] [place] [address], * (ABNORMAL) Procalcitonin (03/02/2024 5:39 AM EST) Procalcitonin 3.58(H) <=0.16 ng/mL LAB CHEMISTRY METHOD 03/02/2024 11:30 AM [facility] Blood Venous blood specimen / Unknown Venipuncture / Unknown 03/02/2024 5:39 AM EST 03/02/2024 5:58 AM EST Narrative [facility] - 03/02/2024 11:30 AM EST Procalcitonin [...] Lujan MD LAB BLOOD ORDERABLES Final Result [facility] [address] [place] [address], * CT Angio Chest wo and/or w [...] at 5 days 03/07/2024 7:01 AM EST [facility] Blood Venous blood specimen / Unknown Venipuncture / Unknown 03/02/2024 1:43 AM EST 03/02/2024 1:52 AM EST Gale Sandoval MD LAB MICROBIOLOGY - [facility] ORDERABLES Final Result [facility] [address] [place] [address], * Respiratory virus panel molecular study (03/02/2024 1:33 AM EST) Adenovirus Detection by PCR Not Detected Not Detected LAB MICROBIOLOGY METHOD 03/02/2024 2:53 AM EST [facility] Influenza A PCR Not Detected Not Detected LAB MICROBIOLOGY METHOD 03/02/2024 2:53 AM EST [facility] Influenza B PCR Not Detected Not Detected LAB MICROBIOLOGY METHOD 03/02/2024 2:53 AM EST [facility] Coronavirus 229E Not Detected Not Detected LAB MICROBIOLOGY METHOD 03/02/2024 2:53 AM EST [facility] Coronavirus HKU1 Not Detected Not Detected LAB MICROBIOLOGY METHOD 03/02/2024 2:53 AM EST [facility] Coronavirus OC43 Not Detected Not Detected LAB MICROBIOLOGY METHOD 03/02/2024 2:53 AM EST [facility] Coronavirus NL63 Not Detected Not Detected LAB MICROBIOLOGY METHOD 03/02/2024 2:53 AM EST [facility] Parainfluenza Virus 1 Not Detected Not Detected LAB MICROBIOLOGY METHOD 03/02/2024 2:53 AM EST [facility] Parainfluenza Virus 2 Not Detected Not Detected LAB MICROBIOLOGY METHOD 03/02/2024 2:53 AM EST [facility] Parainfluenza Virus 3 Not Detected Not Detected LAB MICROBIOLOGY METHOD 03/02/2024 2:53 AM EST [facility] Parainfluenza Virus 4 Not Detected Not Detected LAB MICROBIOLOGY METHOD 03/02/2024 2:53 AM EST [facility] RSV PCR Not Detected Not Detected LAB MICROBIOLOGY METHOD 03/02/2024 2:53 AM EST [facility] Human Metapneumovirus A and B Not Detected Not Detected LAB MICROBIOLOGY METHOD 03/02/2024 2:53 AM EST [facility] Rhinovirus/Entero virus Not Detected Not Detected LAB MICROBIOLOGY METHOD 03/02/2024 2:53 AM EST [facility] Bordetella pertussis Not Detected Not Detected LAB MICROBIOLOGY METHOD 03/02/2024 2:53 AM EST [facility] Bordetella parapertussis Not Detected Not Detected LAB MICROBIOLOGY METHOD 03/02/2024 2:53 AM EST [facility] Mycoplasma pneumo by PCR Not Detected Not Detected LAB MICROBIOLOGY METHOD 03/02/2024 2:53 AM EST [facility] Chlamydia pneumoniae Not Detected Not Detected LAB MICROBIOLOGY METHOD 03/02/2024 2:53 AM [facility] SARS COV-2 Not Detected Not Detected LAB MICROBIOLOGY METHOD 03/02/2024 2:53 AM [facility] Swab Both anterior nares / Unknown Non-blood Collection / Unknown 03/02/2024 1:33 AM EST 03/02/2024 1:53 AM EST Narrative [facility] - 03/02/2024 2:53 AM EST Testing was performed using the ecoAT[employer] Respiratory Pathogen PCR Assay. All results must [...] MICROBIOLOGY - GENER AL ORDERABLES Final Result [facility] [address] [place] [address], * Rapid strep A screen (03/02/2024 1:33 AM EST) [facility] Signature Strep A Ag Negative Negative, Invalid 03/02/2024 4:19 AM EST [facility] Comment:Refer to Throat Cult ure. Swab Structure of anterior portion of neck / Unknown Non-blood Collection / Unknown 03/02/2024 1:33 AM EST 03/02/2024 1:53 AM EST Gale Sandoval MD LAB MICROBIOLOGY - GENER AL ORDERABLES Final Result Performing Organization Address [facility]/ZIP Co de Phone Number [facility] [address] [place] [address], [place] [phone] * Culture throat (03/02/2024 1:33 AM EST) Culture, Throat No pathogens isolated. 03/04/2024 12:51 PM EST [facility] Swab Structure of anterior portion of neck / Unknown Non-blood Collection / Unknown 03/02/2024 1:33 AM EST 03/02/2024 1:53 AM EST Gale Sandoval MD LAB MICROBIOLOGY - GENER AL ORDERABLES Final Result Performing Organization Address [facility] Co de Phone Number [facility] [address] [place] [address], [place] [phone] * Lactate, with reflex (03/02/2024 1:31 AM EST) LACTIC ACID 1.8 0.4 - 2.0 mmol/L LAB CHEMISTRY METHOD 03/02/2024 2:31 AM EST [facility] Blood Venous blood specimen / Unknown Venipuncture / Unknown 03/02/2024 1:31 AM EST 03/02/2024 1:53 AM EST Gale Sandoval MD LAB BLOOD ORDERABLES Fin al Result Performing Organization Address [facility]/ZIP Co de Phone Number [facility] [address] [place] [address], [place] [phone] * Troponin I high sensitivity (03/02/2024 1:31 AM EST) Only the most recent of2 resultswithin the time period is included. [facility] High Sensitivity Troponin I 15 <=54 ng/L LAB CHEMISTRY METHOD 03/02/2024 2:35 AM EST [facility] Blood Venous blood specimen / Unknown Venipuncture / Unknown 03/02/2024 1:31 AM EST 03/02/2024 1:51 AM EST Narrative [facility] - 03/02/2024 2:35 AM EST High levels of biotin in samples may falsely decrease hsTroponin values. ??Use caution when interpreting hsTroponin results in patients taking biotin who exhibit renal impairment (eGFR <60) or in patients taking more than 20 mg/day of biotin. us Theron Jimenes DO LAB BLOOD ORDERABLES Final Resu lt Performing Organization Address City/[facility]/ZIP Co de Phone Number [facility] [address] [place] [address], [place] [phone] * Green LI heparin tube (03/02/2024 1:31 AM EST) [facility] Extra Tube Hold for add-ons. 03/02/2024 3:06 AM EST [facility] Comment:Auto resulted. Blood Venous blood specimen / Unknown 03/02/2024 1:31 AM EST 03/02/2024 1:52 AM EST us Gale Sandoval MD LAB BLOOD ORDERABLES Fin al Result [facility] [address] [place] [address], [place] [phone] * (ABNORMAL) Hepatic function panel (03/02/2024 1:31 AM EST) [facility] Total Protein 7.5 6.0 - 8.0 g/dL LAB CHEMISTRY METHOD 03/02/2024 3:16 AM [facility] Albumin 3.1(L) 3.2 - 5.0 g/dL LAB CHEMISTRY METHOD 03/02/2024 3:16 AM [facility] Total Bilirubin 1.0 0.0 - 1.4 mg/dL LAB CHEMISTRY METHOD 03/02/2024 3:16 AM [facility] Bilirubin, Direct 0.6(H) 0.0 - 0.3 mg/dL LAB CHEMISTRY METHOD 03/02/2024 3:16 AM [facility] Bilirubin, Indirect 0.4 0.0 - 1.1 mg/dL LAB CHEMISTRY METHOD 03/02/2024 3:16 AM [facility] ALT (SGPT) 75(H) 10 - 60 unit/L LAB CHEMISTRY METHOD 03/02/2024 3:16 AM [facility] AST (SGOT) 71(H) 10 - 42 unit/L LAB CHEMISTRY METHOD 03/02/2024 3:16 AM [facility] Alkaline Phosphatase 165(H) 42 - 121 unit/L LAB CHEMISTRY METHOD 03/02/2024 3:16 AM [facility] Blood Venous blood specimen / Unknown Venipuncture / Unknown 03/02/2024 1:31 AM EST 03/02/2024 1:51 AM EST us Gale Sandoval MD LAB BLOOD ORDERABLES Fin al Result [facility] [address] [place] [address], * XR Chest 2 Views (03/02/2024 1:23 [...] Signed Date: 03/02/2024 08:35 ET Workstation ID: [id number] Transcribed By: Self Edit Transcribed Date: 03/02/2024 [...] Signed Date: 03/02/2024 08:35 ET Workstation ID: [id number] Transcribed By: Self Edit Transcribed Date: 03/02/2024 08:32 ET us Ra Lujan MD IMG XR PROCEDURES Final Res ult * ECG 12 lead (03/02/2024 1:13 AM EST) Ventricular Rate ECG 90 BPM GEMUSE Atrial Rate 90 BPM GEMUSE P-R Interval 138 ms GEMUSE QRS Duration 78 ms GEMUSE Q-T Interval 364 ms GEMUSE QTc 445 ms GEMUSE P Wave [place] 42 degrees GEMUSE R [place] 17 degrees GEMUSE T [place] 47 degrees GEMUSE ECG Interpretation Normal sinus [...] and culture (03/01/2024 8:50 PM EST) Specific [place] Urine 03/01/2024 9:53 PM [facility] Comment:Unable to interpret due to color interference. pH, Urine 03/01/2024 9:53 PM [facility] Comment:Unable to interpret due to color interference. Leukocytes, Urine 03/01/2024 9:53 PM [facility] Comment:Unable to interpret due to color interference. Nitrite, Urine 03/01/2024 9:53 PM [facility] Comment:Unable to interpret due to color interference. Protein, Urine 03/01/2024 9:53 PM [facility] Comment:Unable to interpret due to color interference. Glucose, Urine 03/01/2024 9:53 PM [facility] Comment:Unable to interpret due to color interference. Ketones, Urine 03/01/2024 9:53 PM EST [facility] Comment:Unable to interpret due to color interference. Urobilinogen, Urine 03/01/2024 9:53 PM EST [facility] Comment:Unable to interpret due to color interference. Bilirubin, Urine 03/01/2024 9:53 PM [facility] Comment:Unable to interpret due to color interference. Blood, Urine 03/01/2024 9:53 PM [facility] Comment:Unable to interpret due to color interference. RBC, Urine 4 0 - 4 /HPF 03/01/2024 9:53 PM [facility] WBC, Urine 30(H) 0 - 4 /HPF 03/01/2024 9:53 PM [facility] Squamous Epithelial, Urine 40 0 - 60 /LPF 03/01/2024 9:53 PM [facility] Bacteria, Urine Moderate(A) Negative /HPF 03/01/2024 9:53 PM [facility] Hyaline Casts, Urine 10(H) 0 - 3 /LPF 03/01/2024 9:53 PM [facility] Other Casts, Urine ..Rare Coarse Granular casts. /LPF 03/01/2024 9:53 PM [facility] Urine Urine specimen obtained by clean catch procedure / Unknown Non-blood Collection / Unknown 03/01/2024 8:50 PM EST 03/01/2024 9:22 PM EST us Theron Jimenes DO LAB URINE ORDERABLES Final Resu lt [facility] [address] [place] [address], * [place] urine culture tube (03/01/2024 8:50 PM EST) Extra Tube Hold for add-ons. 03/01/2024 11:01 PM EST [facility] Comment:Auto resulted. Urine Urine specimen obtained by clean catch procedure / Unknown Non-blood Collection / Unknown 03/01/2024 8:50 PM EST 03/01/2024 9:22 PM EST Theron Jimenes DO LAB URINE ORDERABLES Final Resu lt Performing Organization Address City/[facility]/ZIP Co de Phone Number [facility] [address] [place] [address], [place] [phone] * Culture urine (03/01/2024 8:50 PM EST) Pathologist [facility] Culture, Urine 10,000-49,000 CFU/mL Mixed urogenital adrian, no uropathogens present. Suggest repeat specimen if clinically indicated. 03/03/2024 10:48 AM EST [facility] Urine Urine specimen obtained by clean catch procedure / Unknown Non-blood Collection / Unknown 03/01/2024 8:50 PM EST 03/01/2024 9:53 PM EST us Theron Jimenes DO LAB MICROBIOLOGY - GENERAL ORDE RABLES Final Result Performing Organization Address [facility] Co de Phone Number [facility] [address] [place] [address], [place] [phone] * Magnesium (03/01/2024 8:24 PM EST) Magnesium 2.3 1.9 - 2.6 mg/dL LAB CHEMISTRY METHOD 03/01/2024 11:24 PM EST [facility] Blood Venous blood specimen / Unknown Venipuncture / Unknown 03/01/2024 8:24 PM EST 03/01/2024 9:22 PM EST us Theron Jimenes DO LAB BLOOD ORDERABLES Final Resu lt Performing Organization Address City/[facility]/ZIP Co de Phone Number [facility] [address] [place] [address], * [facility] (04/25/2023 1:50 PM EST) Anatomical Region Laterality Modality Mammography 04/25/2023 10:4 8 AM EST Narrative 04/25/2023 1:50 PM EST [facility] Diagnostic Imaging Department [address] [place] [address] Patient: ??CHULA ZAVALA ?/Age/Sex: 1955 - 67 - F Unit#: ??[id number] ? Location/Status: ??SPDIMAM/REG CLI ? Mnemonic/Ordering Site: ??DIGSC/SPMAM Ordering Physician: ??CALLUM RITTER MD [facility] Screening Digital - 04/25/23 - 1107 Report Status:Signed EXAM: [facility] Screening Digital EXAM DATE AND TIME: 04/25/2023 11:07 AM HISTORY: ??Annual screening COMPARISON: ??Multiple exams dating back to 2014 TECHNIQUE: Bilateral digital breast tomosynthesis was performed in the CC and MLO projections. Computer aided detection with [employer] 3D 3.1 was employed. TISSUE DENSITY: b. [...] Procedure Note Christa Vallecillo MD - 10/09/2023 [facility] Diagnostic Imaging Department [address] [place], [place] [id number] Patient: CHULA ZAVALA /Age/Sex: 1955 - 67 - F Unit#: [id number] Location/Status: [facility] Mnemonic/Ordering Site: [facility] Ordering Physician: CALLUM RITTER MD [facility] Screening Digital - 04/25/23 - 1107 Report Status:Signed EXAM: [facility] Screening Digital EXAM DATE AND TIME: 04/25/2023 11:07 AM HISTORY: Annual screening COMPARISON: Multiple exams dating back to 2014 TECHNIQUE: Bilateral digital [facility] Computer aided detection with [employer] 3D 3.1was employed. TISSUE DENSITY: b. 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
--- OUTSIDE RECORDS SUMMARY | 2024-04-10 14:28 | XMS_ITS | Encounter Summary ---
Author Organization [facility] Address [address] [place] [address] Care Team Providers Care Medical Claims Assistant Name Role Phone Chris Ptots Primary Care Provider Callum Desir MD Primary Care Provider Cyndie white Encounter Details Date Type Department Care Team Description 04/27/2018 Director Media Report Medical Records [address] [place] [id number] Abstract, Provider Social History Tobacco Use Types Packs/Day Years Used Date Smoking Tobacco: Never Assessed Sex Assigned at Date Recorded Not on file documented as of this encounter Plan of Treatment Not on file documented as of this encounter Visit Diagnoses Not on filedocumented in this encounter Care Teams Medical Claims Assistant Relationship Specialty Start Date End Date Chris Potts PCP - General Internal Medicine 06/11/13 03/16/22 Callum Muñoz MD PCP - General Internal Medicine 03/17/22 documented as of this encounter
--- OUTSIDE RECORDS SUMMARY | 2024-04-10 14:28 | XMS_ITS | Clinical Summary ---
Author Organization [facility] Address [address] [place] [address] Care Team Providers Care Reactor Fueling Supervisor Name Role Phone Tien Nazario MD Primary Care Provider [phone] Allergies Active Allergy Reactions Criticality Noted Date [...] valve replacement with mechanical marques ve 05/12/2019 custodial current use of anticoagulant therapy 0 05/12/2019 [...] age to complete this topic Care Teams Reactor Fueling Supervisor Relationship Specialty Start Date End Date Tien Nazario MD PCP - General Cardiothoracic Surgery 09/08/16
--- OUTSIDE RECORDS SUMMARY | 2024-04-10 14:28 | XMS_ITS | Encounter Summary ---
Author Organization [facility] Address [address] [place] [address] Care Team Providers Care Radio Equipment Installer Name Role Phone Chris Potts Primary Care Provider Callum Desir MD Primary Care Provider Cyndie white Encounter Details Date Type Department Care Team Description 06/19/2018 Orders Only Gastroenterology - [place] [address] [facility] [address] [place] [address] Varun Price PAMayraC Social History Tobacco Use Types Packs/Day Years [...] on filedocumented in this encounter Care Teams Radio Equipment Installer Relationship Specialty Start Date End Date Chris Potts PCP - General Internal Medicine 06/11/13 03/16/22 Callum Muñoz MD PCP - General Internal Medicine 03/17/22 documented as of this encounter
== END 2024-04-10 13:21 | disposition home or self-care (01) ==
LOC: HO.HMGCX 13:20
PROVIDERS: PCP Internal Medicine; Visit Provider Internal Medicine
DX: Z09 Encounter for follow-up examination after completed treatment for conditions other than malignant neoplasm (principal); J18.9 Pneumonia, unspecified organism; R42 Dizziness and giddiness; I10 Essential (primary) hypertension; R68.89 Other general symptoms and signs; E78.9 Disorder of lipoprotein metabolism, unspecified; F41.1 Generalized anxiety disorder; C15.9 Malignant neoplasm of esophagus, unspecified; Z79.01 Long term (current) use of anticoagulants; Z95.0 Presence of cardiac pacemaker
CPT/HCPCS: 71046; 96127; 99212

== ENCOUNTER 2024-04-10 13:20 | Outpatient (AMB) | payer OTHER, SELFPAY ==
[2024-04-10 13:31] VITALS: BP 142/78; PULSE 61; O2SAT 99; BMI 25.0
--- NOTE | 2024-04-10 13:31 | MHC.PC.OV ---
Vital Signs 04/10/24 13:31 Height 5 ft 4 in Weight 145 lb 6 oz BMI 25.0 BP 142/78 H Blood Pressure Location Rt brachial Position Sitting Pulse 61 Pulse Source Pulse Oximeter Pulse Oximetry (%) 99 Oxygen Delivery Method Room Air Intake Visit Reasons: dizziness, nausea Allergies penicillin G Allergy (Intermediate, Verified 04/10/24 13:31) rash Iodinated Contrast Media [IV Contrast Dye] Allergy (Unknown, Verified 04/10/24 13:31) Unknown hydrochlorothiazide Adverse Reaction (Intermediate, Verified 04/10/24 13:31) Vomiting seafood Allergy (Unknown, Uncoded 12/14/21 10:34) unknown-listed from another source Medication List - Last Reconciled 04/10/24 by Callum Muñoz MD [Blood pressure monitor As directed] cetirizine (Zyrtec) 10 mg PO DAILY 90 days diltiazem HCl CD 120 mg PO DAILY 90 days meclizine 25 mg PO DAILY PRN naphazoline-pheniramine 0.025-0.3 % (Naphcon-A) 1 drp ophthalmic (eye) BID-QID PRN 30 days pantoprazole (Protonix) 40 mg PO DAILY rosuvastatin 10 mg PO DAILY 90 days warfarin See Protocol Per protocol, up to 2 tabs daily orally daily; 30 days wheat dextrin (Benefiber Healthy Shape) grams PO Tobacco use date assessed: 04/10/24 Fall risk assessment: No Falls in past year Last assessed Fall Risk: 04/10/24 Dental Screening Dental Screen Date: 04/10/24 Did you have a dental visit in the last 12 months?: No Did you have a dental problem in the last 6 months where you did not have access to dental care?: No Was dental information given to patient?: No HPI dizziness, nausea HPI Details Patient is 68-year-old female who was last seen summer of last year came in today for hospital discharge follow-up from 03/02/2024 to 03/10/2024 [facility] Patient presented with a chief complaint of weakness and loss of appetite and vomiting Patient has a history of esophageal cancer status post radiation and chemotherapy, currently not on any treatment for the last several years, history of asthma, rheumatic heart disease status post mechanical mitral valve replacement and is on Coumadin. Patient verbalized to having cough nausea vomiting ongoing for the last 3 days or so, no diarrhea in the emergency room Patient was diagnosed with pneumonia of both lungs Her blood pressure was 128/60 in the hospital Flu test was negative COVID test was negative, RSV negative Labs showed normal electrolytes creatinine 0.72 GFR 90 Hemoglobin came back at 10.6 white count 13, platelet 498 Mild LFT elevation, with ALT 75 AST 71 and alkaline phosphatase 165 TSH 1.36 Troponin 15 EKG showed heart rate of 90 normal sinus rhythm, ST slightly depressed anterior leads Chest x-ray showed prosthetic mitral valve, worsening aeration of left lower chest Oval opacity projecting to the right chest is consistent with surgical changes of gastric pull-through with stomach noted in the posterior mediastinum of the right chest patchy consolidation in the mid right chest and left lung base Patient had colonoscopy 04/05/2017 Upper GI endoscopy July of 2018 Her medications are Cardizem 120 mg once a day Lexapro 20 mg once a day Losartan 25 mg once a day Pantoprazole 40 mg once a day Rosuvastatin 10 mg once a day Warfarin 4 mg daily She was evaluated by Dr. Wilson [facility] in hospital, patient is to continue follow-up as an outpatient She was admitted and treated eventually patient started to feel better and was discharged She will need a repeat chest x-ray today Instructed son to make the follow-up appointment with gastroenterology and Cardiology Her blood pressure medications are through Cardiology office She came in today with her son who is helping with translation, she continued to have vertigo and dizziness. - Reports severe episodes lasting several days; bed rest was required in one instance. - Meclizine, an antihistamine, is used intermittently but with limited efficacy. - Consideration for neurology referral and physical therapy for vertigo. - Experiences nausea secondary to esophageal anatomical changes post-surgery for cancer. - Previous endoscopic evaluation conducted in 2019. - Anxiety managed with Lexapro, son admits that she need medication for anxiety Patient goes to [facility] INR clinic as she is on Coumadin secondary to artificial mitral valve - Allergies treated with citalizine. She complained of no shortness a breath or cough today Medications - Diltiazem for hypertension management. - Losartan for hypertension management. - Meclizine for dizziness/vertigo. - Rosuvastatin. - Pantoprazole. - Citalizine for allergy management. - Lexapro for anxiety. - Blood thinners (specific type not specified). Problem List - Double Pneumonia - Essential Hypertension - Atrial Fibrillation - Artificial Heart Valve - Nausea associated with Gastroesophageal Issues - Vertigo - Anxiety - History of Esophageal Cancer - History of Surgery for Esophagus - Allergies [place] of Care - SonBrant, involved and informed about patient's care plans. - Cardiology follow-ups with [facility] Cardiology indicated. - [facility] Coumadin clinic - [facility] Gastroenterology Patient Instructions - Seek a chest X-ray today to verify pneumonia resolution. - Follow up with the neurologist referral placed to [facility] Neurology as per patient's request - Continue using meclizine, increasing to three times a day during vertigo episodes. - Attend regular cardiology and gastroenterology appointments. - Maintain current medication regimen unless otherwise advised. - Keep INR levels regularly monitored for anticoagulant efficacy. - Ensure regular blood pressure checks and medication adherence. Review of Systems General: No fever no chills neurological: No headaches no dizziness at this time ear nose throat: No sore throat no hearing difficulty no ear pain cardiovascular: No syncope, no chest pain, no palpitations gastrointestinal: No nausea vomiting or diarrhea endocrine: No polyuria polydipsia no heat intolerance genitourinary: No dysuria skin: No new complaints Physical Exam general: No acute distress HEENT: No acute findings neck: Supple respiratory system: Able to talk in full sentences, no audible wheeze no stridor cardiovascular: S1-S2 regular in rate and rhythm gastrointestinal: Nausea present, history of esophageal surgery extremities: No new findings 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: Alert awake oriented x3 motor sensory intact skin: Normal turgor [facility] Medical History (Updated 04/10/24 @ 14:24 by Callum Muñoz MD) GERD (gastroesophageal reflux disease) HTN (hypertension) Depression CVA (cerebral vascular accident) Esophageal cancer Rheumatic heart disease Current use of anticoagulant therapy Acid reflux Hx of hyperlipidemia Surgical History History of mitral valve replacement H/O colonoscopy History of cholecystectomy Family History Father Throat cancer Other Mental health disorder Substance use disorder Social History Housing: Apartment Alcohol intake: current Patient Tobacco Use Status: Never used Tobacco e-Cigarette/Vaping Use: Never Used service: No Current occupational status: retired Sexual orientation: Straight/Heterosexual Gender identity: Female Cognitive needs: No Hearing needs: No Vision needs: Yes Questionnaire PHQ-9 Over the last 2 weeks, how often have you been bothered by any of the following problems? 1. Little interest or pleasure in doing things: not at all 2. Feeling down, depressed, or hopeless: not at all 3. Trouble falling or staying asleep, or sleeping too much: not at all 4. Feeling tired or having little energy: several days 5. Poor appetite or overeating: several days 6. Feeling bad about yourself - or that you are a failure or have let yourself or your family down: not at all 7. Trouble concentrating on things, such as reading the newspaper or watching television: not at all 8. Moving or speaking so slowly that other people could have noticed. Or the opposite - being so fidgety or restless that you have been moving around a lot more than usual: not at all 9. Thoughts that you would be better off or of hurting yourself in some way: not at all Total score: 2 Depression Screening Interpretation: Negative Depression Screening Done: Yes 47341 - PHQ-9 Billing: Yes Source: Developed by Drs. Wilberto Wilson, Radha Page, Rufino Anand and colleagues, with an educational navid from [employer]. Thrive Questionnaire Date Thrive assessed: 04/10/24 I am a: Patient What is your living situation today?: I have a steady place to live Within the past 12 months, did the food you bought not last and you didn't have the money to get more?: Never true Within the past 12 months, did you worry whether your food would run out before you got money to buy more?: Never true Do you have trouble paying for medicines?: No Do you have trouble getting transportation to medical appointments?: I choose not to answer this question Do you have trouble paying your heating and electricity bill?: I choose not to answer this question Do you have trouble taking care of your child, family member or friend?: I choose not to answer this question Do you have trouble with day-to-day activities such as bathing, preparing meals, shopping, managing finances, etc.?: I choose not to answer this question Are you currently unemployed and looking for a job?: No Are you interested in more education?: No Please select the resources that you would like help with: None Currently or been in a relationship where the following occur: No concerns reported THRIVE Score: 0 AUDIT C Alcohol Use Questionnaire (AUDIT-C) 1. How often do you have a drink containing alcohol?: Never 3. How often do you have six or more drinks on one occasion?: Never Total Score: 0 Score Reviewed/Action Taken: Yes IVON-7 AMB Questionnaire IVON-7 Date IVON - 7 assessed: 04/10/24 Feeling nervous, anxious, or on edge: 0 = Not at all Not being able to stop or control worryin = Not at all Worrying too much about different things: 0 = Not at all Trouble relaxin = Not at all Being so restless that it is hard to sit still: 0 = Not at all Becoming easily annoyed or irritable: 0 = Not at all Feeling afraid as if something awful might happen: 0 = Not at all Total IVON-7 score (0-4 normal; 5-9 mild; 10-14 moderate; 15-21 severe): 0 Source: Developed by Drs. Wilberto Wilson, Radha Page, Rufino Anand and colleagues, with an educational navid from [employer]. IVON-7 Assessment Billing IVON-7 Assessment Tool: IVON-7 Assessment 58597 Physical exam (Primary Care) Vital Signs: Last Vital Signs Pulse 61 04/10/24 13:31 BP 142/78 H 04/10/24 13:31 Pulse Ox 99 04/10/24 13:31 Oxygen Delivery Method Room Air 04/10/24 13:31 BMI result Body Mass Index 25.0 Tobacco/Smoking Status: Tobacco use Status Tobacco use date assessed 04/10/24 04/10/24 13:39 Patient Tobacco Use Status Never used Tobacco 04/10/24 13:39 e-Cigarette/Vaping Use Never Used 04/10/24 13:39 PHQ-9: PHQ-9 Score PHQ-9: Total score 2 04/10/24 13:42 Depression Screening Interpretation: Negative Thrive Assessment: Date of Thrive Assessment Date Thrive assessed 04/10/24 04/10/24 13:42 Currently or been in a relationship where the following occur: No concerns reported Coding Level of Care Code Est Pt Level 5 (66599) Diagnoses Hospital discharge follow-up Z09 Pneumonia of both lungs due to infectious organism, unspecified part of lung J18.9 Pneumonia type: due to unspecified organism Laterality: bilateral Lung location: unspecified part of lung Vertigo R42 Hypertension, essential I10 Cardiac pacemaker Z95.0 Environmental allergies Z91.09 Itchy eyes R68.89 Lipid disorder E78.9 Warfarin anticoagulation Z79.01 Generalized anxiety disorder F41.1 Anxiety disorder type: generalized anxiety disorder Malignant neoplasm of esophagus, unspecified location C15.9 Malignant neoplasm of esophagus location: unspecified location Additional Codes IVON-7 Assessment Billing - IVON-7 Assessment Tool: IVON-7 Assessment 45871 ([id number]) PHQ-9 - 78793 - PHQ-9 Billing: Yes ([id number]) Assessment & Plan Assessment & Plan (1) Hospital discharge follow-up: Code(s): Z09 - Encounter for follow-up examination after completed treatment for conditions other than malignant neoplasm Category: Medical (2) Pneumonia: Code(s): J18.9 - Pneumonia, unspecified organism Category: Medical Qualifiers: Pneumonia type: due to unspecified organism Laterality: bilateral Lung location: unspecified part of lung Qualified Code(s): J18.9 - Pneumonia, unspecified organism (3) Vertigo: Code(s): R42 - Dizziness and giddiness Category: Medical (4) Hypertension, essential: Code(s): I10 - Essential (primary) hypertension Category: Medical (5) Cardiac pacemaker: Code(s): Z95.0 - Presence of cardiac pacemaker Category: Medical (6) Environmental allergies: Code(s): Z91.09 - Other allergy status, other than to drugs and biological substances Category: Medical (7) Itchy eyes: Code(s): R68.89 - Other general symptoms and signs Category: Medical (8) Lipid disorder: Code(s): E78.9 - Disorder of lipoprotein metabolism, unspecified Category: Medical (9) Warfarin anticoagulation: Code(s): Z79.01 - 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 Category: Medical (10) Anxiety disorder: Code(s): F41.9 - Anxiety disorder, unspecified Category: Medical Qualifiers: Anxiety disorder type: generalized anxiety disorder Qualified Code(s): F41.1 - Generalized anxiety disorder (11) Esophageal cancer: Code(s): C15.9 - Malignant neoplasm of esophagus, unspecified Category: Medical Qualifiers: Malignant neoplasm of esophagus location: unspecified location Qualified Code(s): C15.9 - Malignant neoplasm of esophagus, unspecified Plan Patient is 68-year-old female who was last seen summer of last year came in today for hospital discharge follow-up from 03/02/2024 to 03/10/2024 [facility] Patient presented with a chief complaint of weakness and loss of appetite and vomiting Patient has a history of esophageal cancer status post radiation and chemotherapy, currently not on any treatment for the last several years, history of asthma, rheumatic heart disease status post mechanical mitral valve replacement and is on Coumadin. Patient verbalized to having cough nausea vomiting ongoing for the last 3 days or so, no diarrhea in the emergency room Patient was diagnosed with pneumonia of both lungs Her blood pressure was 128/60 in the hospital Flu test was negative COVID test was negative, RSV negative Labs showed normal electrolytes creatinine 0.72 GFR 90 Hemoglobin came back at 10.6 white count 13, platelet 498 Mild LFT elevation, with ALT 75 AST 71 and alkaline phosphatase 165 TSH 1.36 Troponin 15 EKG showed heart rate of 90 normal sinus rhythm, ST slightly depressed anterior leads Chest x-ray showed prosthetic mitral valve, worsening aeration of left lower chest Oval opacity projecting to the right chest is consistent with surgical changes of gastric pull-through with stomach noted in the posterior mediastinum of the right chest patchy consolidation in the mid right chest and left lung base Patient had colonoscopy 04/05/2017 Upper GI endoscopy July of 2018 Her medications are Cardizem 120 mg once a day Lexapro 20 mg once a day Losartan 25 mg once a day Pantoprazole 40 mg once a day Rosuvastatin 10 mg once a day Warfarin 4 mg daily She was evaluated by Dr. [facility] in hospital, patient is to continue follow-up as an outpatient She was admitted and treated eventually patient started to feel better and was discharged She will need a repeat chest x-ray today Instructed son to make the follow-up appointment with gastroenterology and Cardiology Her blood pressure medications are through Cardiology office She came in today with her son who is helping with translation, she continued to have vertigo and dizziness. - Reports severe episodes lasting several days; bed rest was required in one instance. - Meclizine, an antihistamine, is used intermittently but with limited efficacy. - Consideration for neurology referral and physical therapy for vertigo. - Experiences nausea secondary to esophageal anatomical changes post-surgery for cancer. - Previous endoscopic evaluation conducted in 2019. - Anxiety managed with Lexapro, son admits that she need medication for anxiety Patient goes to [facility] INR clinic as she is on Coumadin secondary to artificial mitral valve - Allergies treated with citalizine. She complained of no shortness a breath or cough today Medications - Diltiazem for hypertension management. - Losartan for hypertension management. - Meclizine for dizziness/vertigo. - Rosuvastatin. - Pantoprazole. - Citalizine for allergy management. - Lexapro for anxiety. - Blood thinners (specific type not specified). Problem List - Double Pneumonia - Essential Hypertension - Atrial Fibrillation - Artificial Heart Valve - Nausea associated with Gastroesophageal Issues - Vertigo - Anxiety - History of Esophageal Cancer - History of Surgery for Esophagus - Allergies [place] of Care - Brant Denis, involved and informed about patient's care plans. - Cardiology follow-ups with [facility] Cardiology indicated. - [facility] Coumadin clinic - [facility] Gastroenterology Patient Instructions - Seek a chest X-ray today to verify pneumonia resolution. - Follow up with the neurologist referral placed to [facility] Neurology as per patient's request - Continue using meclizine, increasing to three times a day during vertigo episodes. - Attend regular cardiology and gastroenterology appointments. - Maintain current medication regimen unless otherwise advised. - Keep INR levels regularly monitored for anticoagulant efficacy. - Ensure regular blood pressure checks and medication adherence. 46 minutes spent in care of this patient including reviewing the notes and [id number] discussion with son and patient Coordination of care Orders: Orders XR chest 2V Today J18.9 - Pneumonia, unspecified organism Referrals Neurology Referral R42 - Dizziness and giddiness Medications: Changed From meclizine 25 mg PO DAILY PRN 14 tabs 0RF motion sickness To meclizine 25 mg PO BID-TID 90 days 270 tabs 0RF motion sickness
--- OUTSIDE RECORDS SUMMARY | 2024-04-10 13:37 | XMS_ITS | Clinical Summary ---
Author Organization [facility] Address [address] [place] [address] Care Team Providers Care Principal Java Software Engineer Name Role Phone Tien Nazario MD Primary Care Provider [phone] Allergies Active Allergy Reactions Criticality Noted Date Comments Penicillins 09/15/2016 Medications Medication Sig Dispensed Refills Start Date End Date Status warfarin (COUMADIN) 7.5 MG tablet Take 7.5 mg by mouth daily. 0 Active gabapentin (NEURONTIN) 600 MG tablet Take 600 mg by mouth as needed. 0 Active Multiple Vitamin (MULTI VITAMIN DAILY PO) Take by mouth. 0 Active zolpidem (AMBIEN) 5 MG tablet Take 5 mg by mouth as needed for sleep. 0 Active rosuvastatin (CRESTOR) tablet 40 mg Take 40 mg by mouth daily. 0 Active omeprazole (PRILOSEC) 20 MG capsule Take 20 mg by mouth as needed. 0 Active loperamide (IMODIUM) 2 MG capsule Take 2 mg by mouth as needed for diarrhea. 0 Active metoclopramide (REGLAN) tablet 10 mg TOME JASMYNE TABLETA POR VIA ORAL ANTES DE LAS COMIDAS AND AL ACOSTARSE 120 tablet 0 02/02/2017 Active atorvastatin (LIPITOR) tablet 40 mg Take 40 mg by mouth daily. 0 Active Active Problems Problem Noted Date Diagnosed Date History of esophageal cancer 08/06/2019 H/O mitral valve replacement with mechanical marques ve 05/12/2019 [facility] current use of anticoagulant therapy 0 05/12/2019 GERD (gastroesophageal reflux disease) 0 Lumbar back pain 05/07/2019 Uncomplicated opioid dependence 05/07/2019 Family History Medical History Relation Name Comments Cancer Father throat Relation Name Status Comments Father Mother Social History Tobacco Use Types Packs/Day Years Used Date Smoking Tobacco: Former Smokeless Tobacco: Never Alcohol Use Standard Drinks/Week Comments Yes 0 (1 standard drink = 0.6 oz pur e alcohol) Sex and Gender Information Value Date Recorded Sex Assigned at Not on file Gender Identity Not on file Sexual Orientation Not on file Last Filed Vital Signs Vital Sign Reading Time Taken Comments Blood Pressure 150/61 05/07/2019 9:32 AM EDT Pulse 57 05/07/2019 9:32 AM EDT Temperature 36.7 ??C (98 ??F) 05/07/2019 9:32 AM EDT Respiratory Rate - - Oxygen Saturation - - Inhaled Oxygen Concentration - - Weight 66.7 kg (147 lb) 05/07/2019 9:32 AM EDT Height 162.6 cm (5' 4 ) 05/07/2019 9:32 AM EDT Body Mass Index 25.23 05/07/2019 9:32 AM EDT Plan of Treatment Health Maintenance Due Date Last Done Comments Hepatitis C Screening 1955 COVID-19 Vaccine (#1) 1955 Depression Screening 1965 Preventative Health Evaluation 06/09/1971 DTap / Tdap / Td (1 - Tdap) 1972 Colon Cancer Screening (Colonoscopy) 1998 Breast Cancer Screening (Mammogram) 06/09/2003 Shingrix-Zoster Vaccine (1 of 2) 06/09/2003 Fall Risk Assessment 2018 Osteoporosis Screening (DEXA Scan) 2018 Pneumococcal Vaccine (1 of 1 - PCV) 2018 Influenza Vaccine (#1) 2023 RSV Adult > 60+ Yrs or Pregn ant (1 - 1-dose 75+ series) 2028 Hepatitis B Vaccines Aged Out No long er eligible based on patient's age to complete this topic RSV Ped < 20 months Aged Out No longe r eligible based on patient's age to complete this topic Care Teams Principal Java Software Engineer Relationship Specialty Start Date End Date Tien Nazario MD PCP - General Cardiothoracic Surgery 09/08/16
--- OUTSIDE RECORDS SUMMARY | 2024-04-10 13:37 | XMS_ITS | Data Portability ---
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 She hasn't had COVID-19 vaccines. Her rapid COVID-19 and flu swabs were negative. I initiated treatment with Levaquin 500 mg daily for 5 days and Robitussin DM prn cough. She will follow up with her PCP. The patient agreed with this plan. [email or web address] Not available 06/16/2021 18:26:36 Plan of Treatment Reminders Order Date Submit Date Provider Last Modified By Organization Details Last Modified Time Details Appointments None record ed. Lab None record ed. Referral None record ed. Procedures None record ed. Surgeries None record ed. Imaging None record ed. Medication Orders None record ed. Patient TargetsNo targets recorded. Patient InstructionsNo instructions recorded. Reason for Referral None Reported. Medical Equipment None Reported. Allergies Allergen ID Allergen Name Allergen Category Reaction Reaction Severity Criticality Documentation Date Start Date Code Code System Note Provider Name and Address Organization Details Recorded Time 8611 Product containin g penicilli n (product) medicatio n Not available Not available Not available 12/19/2023 94369 [id number] SNOMED Not Available [facility] - production 03:45:30 Medications Name Sig Start Date Stop Date Status Note LastModified by Organization Details LastModified Time neomycin-polym yxin-hydrocort 3.5 mg/mL-10,000 unit/mL-1 % ear solution INSTILL 2 DROPS INTO BOTH EARS 4 TIMES A DAY FOR 7 DAYS active Not Available Not Available No t Available cetirizine 10 mg tablet TAKE 1 TABLET BY MOUTH ONCE DAILY active Not Available Not Available No t Available azithromycin 250 mg tablet TOME 2 TABLETAS POR V A ORAL HOY, LUEGO TOME 1 TABLETA POR D A ANAYA 4 D active Not Available Not Available No t Available warfarin 4 mg tablet TAKE UP TO 2 TABLETS BY MOUTH ONCE DAILY PER PROTOCOL active Not Available Not Available No t Available pantoprazole 40 mg tablet,delayed release TOME JASMYNE TABLETA POR V A ORAL TODOS LOS D active Not Available Not Available No t Available warfarin 5 mg tablet TOME JASMYNE TABLETA TODOS LOS D active Not Available Not Available No t Available losartan 25 mg tablet TOME JASMYNE TABLETA TODOS LOS D FOR 30 DAYS active Not Available Not Available No t Available diltiazem CD 120 mg capsule,extend ed release 24 hr TAKE 1 CAPSULE BY MOUTH DAILY FOR 90 DAYS 3 active Not Available Not Available No t Available hydrochlorothi azide 25 mg tablet TOME JASMYNE TABLETA TODOS LOS D active Not Available Not Available No t Available escitalopram 20 mg tablet TOME JASMYNE TABLETA POR V A ORAL TODOS LOS D active Not Available Not Available No t Available ezetimibe 10 mg tablet TAKE 1 TABLET (10MG) BY MOUTH DAILY active Not Available Not Available No t Available rosuvastatin 10 mg tablet TAKE 1 TABLET BY MOUTH ONCE DAILY active Not Available Not Available No t Available GaviLyte-G 236 gram-22.74 gram-6.74 gram-5.86 gram oral solution TAKE 240 MLS BY MOUTH EVERY 10 MINUTES FOR 1 DAY FOR 1 DAY UNTIL FECAL EFFLUENT RUNS CLEAR active Not Available Not Available No t Available Vitals Date Recorded Heart rate Respiratory rate Oxygen saturation Oxygen saturation in Arterial blood by Pulse oximetry Body temperature Systolic blood pressure Diastolic blood pressure Provider Name and Address Organization Details Last Updated DateTime 2 66 /min 18 /min 98 % 98 % 93.3 [degF] 156 mm[Hg] 99 mm[Hg] Patrick Reyez MD [address] [facility],[address], [place], [phone], [place] - [email or web address] [facility] 2 18:22:03 Social History None recorded. Functional Status None recorded. Mental Status None recorded. Family History Nothing Reported. Medical History No medical history recorded. Gynecological HistoryNo gynecological history recorded. Obstetrics History GPAL:G 0 P 0 0 0 0 Past Encounters Encounter ID Performer Location Encounter Start Date Encounter Closed Date Diagnosis/Indication Diagnosis SNOMED-CT Code Diagnosis ICD10 Code Diagnosis Note [id number] Patrick Reyez MD [facility] [address] [place] [phone] 06/16/2021 18:21:31 06/16/2021 18:26:55 Health Concerns Section Related Observation LastModified by Organization Detai ls LastModified Time None Recorded Concern Status LastModified by Organization Details LastModified Time None Recorded Advance Directives Directive None Recorded Payers Encounter Date Sequence Insurance Name Policy Number Policy Schulz Covered Member ID Schulz Member ID Guarantor Name 06/16/2021 1 [facility] - DOS PRIOR TO 2022 - DUAL ELIGIBLE (MEDICARE REPLACEMENT/ADV ANTAGE - HMO) Sheela Zavala [id number] Sheela Zavala Notes Date Note Type Note Provider Name and Address Organization Details Recorded Time 06/16/2021 text/html 66 y/o Malaysian speaking female, hx: long-term use of anti-coagulant treatment, anxiety, unsteady gait, arthritis, TAYLOR, GERD, called [facility], c/o cough and cold sx's x 3days. C/o headache and sore throat, yellow colored sputum. Member denies having contact with COVID positive or Flu positive person. Member taking tylenol and cough drops with some effect. Patrick Reyez MD [address] [facility],[address], [place], [phone], [employer] 06/16/2021 18:26:53 OBGyn Episode No OBEpisode recorded.
--- OUTSIDE RECORDS SUMMARY | 2024-04-10 13:37 | XMS_ITS | Clinical Summary ---
Author Organization [facility] Address [address] [place] [address] Phone Care Team Providers Care Gambling Floor Supervisor Name Role Phone Callum Ritter MD Primary Care Provider [phone] Allergies Active Allergy Reactions Criticality Noted Date Comments Penicillin Unknown Medium 03/01/2024 Medications warfarin (COUMADIN) 4 mg tablet Take 1-2 tablets (4-8 mg total) by mouth 1 (one) time each day with dinner. 06/23/2023 Active dilTIAZem CD (CARDIZEM CD) 120 mg 24 hr capsule Take 1 capsule (120 mg total) by mouth 1 (one) time each day. Active escitalopram (LEXAPRO) 20 mg tablet Take 1 tablet (20 mg total) by mouth 1 (one) time each day. Active losartan (COZAAR) 25 mg tablet Take 1 tablet (25 mg total) by mouth 1 (one) time each day. Active rosuvastatin (CRESTOR) 10 mg tablet Take 1 tablet (10 mg total) by mouth 1 (one) time each day. Active pantoprazole (PROTONIX) 40 mg EC tablet Take 1 tablet (40 mg total) by mouth 1 (one) time each day before breakfast. Do not crush, chew, or split. 30 each 03/11/2024 Active Active Problems Patient Care Coordination No te Formatting of this note migh t be different from the original. [facility] Problem Noted Date Diagnosed Date Aspiration pneumonia 03/02/2024 Benign essential HTN 03/02/2024 H/O mitral valve replacement with mechanical marques ve 03/02/2024 Encounters Date Type Department Care Team Description 03/02/2024 12:18 AM EST - 03/10/2024 11:39 AM EST Hospital Encounter [facility] [address] [place] [address] Gale Sandoval MD Jones, Christopher, MD Japaridze, Anna, MD Rasul, Yar M, MD Acute dyspnea (Primary Dx); Pneumonia of both lungs due to infectious organism, unspecified part of lung; Leukocytosis, unspecified type Discharge Disposition: Home or Self Care from Last 3 Months Surgical History Surgery Date Site/Laterality Comments OTHER SURGICAL HISTORY 2011 PROCEDURE: ---- OTHER ----; COMMENT: esophageal resection COLONOSCOPY 04/05/2017 PROCEDURE: OUTSIDE COLONOSCOPY; COMMENT: diverticulosis of asc/desc colon, 5 mm inflammatory polyp, int/ext hemorrhoids OTHER SURGICAL HISTORY 04/05/2017 PROCEDURE: OUTSIDE ENDOSCOPY; COMMENT: grade D esophagitis UPPER GASTROINTESTINAL ENDOSCOPY 08/08/2018 PROCEDURE: MT UPPER GI ENDOSCOPY PERFORMED; COMMENT: severe erosive esophagitis CARDIAC VALVE SURGERY PROCEDURE:CARDIAC VALVE SURGERY Medical History Medical History Date Comments History of esophageal cancer 03/23/2011 DX: History of esophageal cancer; COMMENT: S/p resection 2011 Rodriguez's esophagus 06/13/2018 DX:Rodriguez's esophagus GERD with esophagitis 06/13/2018 DX:GERD wi th esophagitis Rheumatic heart disease 06/13/2018 DX:Rheum atic heart disease Mitral regurgitation and sb ral stenosis 06/13/2018 DX:Mitral regurgitation and mitral stenosis; COMMENT: S/p st cj mitral valve Pre-diabetes 06/13/2018 DX:Pre-diabetes Ischemic hepatitis 06/13/2018 DX:Ischemic h epatitis Gangrenous cholecystitis 06/13/2018 DX:Gang renous cholecystitis Dysthymia 06/13/2018 DX:Dysthymia Asthma 06/13/2018 DX:Asthma Hyperlipidemia 06/13/2018 DX:Hyperlipidemi a Colon polyp 04/05/2018 DX:Colon polyp; COMMENT: hyperplastic and inflammatory Diverticulosis of colon 06/21/2018 DX:Diver ticulosis of colon; COMMENT: Of ascending and descending colon Internal and external hemorr hoids without complication 06/21/2018 DX:Internal and external hem orrhoids without complication Esophageal cancer (CMS/HCC) DX:E sophageal cancer (HCC) GERD (gastroesophageal reflux disease) DX:GERD (gastroesophageal reflux disease) Heart disease DX:Heart disease Eye disease DX:Eye disease Anemia DX:Anemia Depression DX:Depression Hemorrhoids DX:Hemorrhoids Family History Medical History Relation Name Comments Cancer Father throat Colon cancer Neg Hx Relation Name Status Comments Father Mother Social History Tobacco Use Types Packs/Day Years Used Date Smoking Tobacco: Former Smokeless Tobacco: Never Alcohol Use Standard Drinks/Week Comments Yes 0 (1 standard drink = 0.6 oz pur e alcohol) Interpersonal Safety Answer Date Record ed Physical Abuse 03/02/2024 Verbal Abuse 03/02/2024 Comments Unknown Sex and Gender Information Value Date Recorded Sex Assigned at Female 03/02/2024 12:24 AM EST Legal Sex Female 10:54 PM EST Gender Identity Female 03/02/2024 12:24 AM EST Sexual Orientation Straight 03/02/2024 12 :24 AM EST Obstetrics History Last Filed Vital Signs Vital Sign Reading Time Taken Comments Blood Pressure 128/60 03/10/2024 7:34 AM EST Pulse 65 03/10/2024 7:34 AM EST Temperature 36.6 ??C (97.9 ??F) 03/10/2024 7:34 AM ES T Respiratory Rate 16 03/10/2024 7:34 AM EST Oxygen Saturation 97% 03/10/2024 7:34 AM EST Inhaled Oxygen Concentration - - Weight 59 kg (130 lb) 03/01/2024 3:26 PM EST Height 162.6 cm (5' 4 ) 03/01/2024 3:26 PM EST Body Mass Index 22.31 03/01/2024 3:26 PM EST Plan of Treatment Health Maintenance Due Date Last Done Comments Hepatitis A Vaccines (1 of 2 - Risk 2-dose series) 1972 Zoster Vaccines (1 of 2) 06/09/2003 Hepatitis B Vaccines (1 of 3 - Risk 3-dose series) 2013 RSV Immunization Patients 60+ Years Old (1 - Risk 60-74 years 1-dose series) 2013 Pneumococcal Vaccine: 50+ Years (2 of 2 - PCV) 01/04/2014 01/04/2013 Cholesterol Screening (Lipid Panel) 01/23/2022 Colorectal Cancer Screening: Colonoscopy 01/23/2022 Depression Screening 01/23/2022 Hepatitis C Screening 01/23/2022 Medicare Annual Wellness Visit 01/23/2022 Osteoporosis Screening (Bone Density Screening) 01/23/2022 Social Influencers of Health Screening 01/23/2022 COVID-19 Vaccine (1 - season) 2023 Influenza Vaccine (#1) 2023 DTaP,Tdap,and Td Vaccines (2 - Td or Tdap) 10/24/2023 10/23/2013 Falls Risk Assessment 03/10/2025 03/10/2024 Hypertension/CHF/CAD Annual BMP Blood Test 03/10/2025 03/10/2024, 03/09/2024, 03/08/2024, Additional history exists Breast Cancer Screening 04/24/2025 04/25/19, 04/20/2022, 10/30/2018, Additional history exists HIB Vaccines Aged Out No longer eligi ble based on patient's age to complete this topic HPV Vaccines Aged Out No longer eligi ble based on patient's age to complete this topic IPV Vaccines Aged Out No longer eligi ble based on patient's age to complete this topic MMR Vaccines Aged Out No longer eligi ble based on patient's age to complete this topic Meningococcal ACWY Vaccine Aged Out N o longer eligible based on patient's age to complete this topic Meningococcal B Vacine Aged Out No lo nger eligible based on patient's age to complete this topic RSV Immunization Patients Under 20 months Aged Out No longer eligible based on patient's age to complete this topic Varicella Vaccines Aged Out No longer eligible based on patient's age to complete this topic Procedures Procedure Name Priority Date/Time Associated Diagnosis Comments CBC WITH AUTO DIFFERENTIAL Routine 03/10/2024 5:59 AM EST CBC AND DIFFERENTIAL Routine 03/10/2024 5:59 AM EST BASIC METABOLIC PANEL Timed 03/10/2024 5:59 AM EST PROTHROMBIN TIME WITH INR Routine 03/10/2024 5:59 AM EST MANUAL DIFFERENTIAL - SYSMEX WAM Routine 03/09/2024 5:52 AM EST CBC WITH AUTO DIFFERENTIAL Routine 03/09/2024 5:52 AM EST CBC AND DIFFERENTIAL Routine 03/09/2024 5:52 AM EST BASIC METABOLIC PANEL Timed 03/09/2024 5:52 AM EST PROTHROMBIN TIME WITH INR Routine 03/09/2024 5:52 AM EST BASIC METABOLIC PANEL Timed 03/08/2024 6:57 AM EST PROTHROMBIN TIME WITH INR Routine 03/08/2024 6:57 AM EST MANUAL DIFFERENTIAL - SYSMEX WAM Routine 03/08/2024 6:52 AM EST CBC WITH AUTO DIFFERENTIAL Add-On 03/08/2024 6:52 AM EST CBC AND DIFFERENTIAL Add-On 03/08/2024 6:52 AM EST LAVENDER - EDTA Routine 03/08/2024 6:52 AM EST EXTRA TUBES Routine 03/08/2024 6:52 AM EST XR ESOPHAGRAM Routine 03/07/2024 3:09 PM EST BASIC METABOLIC PANEL Timed 03/07/2024 6:12 AM EST PROTHROMBIN TIME WITH INR Routine 03/07/2024 6:12 AM EST MANUAL DIFFERENTIAL - SYSMEX WAM Routine 03/07/2024 6:11 AM EST CBC WITH AUTO DIFFERENTIAL Add-On 03/07/2024 6:11 AM EST CBC AND DIFFERENTIAL Add-On 03/07/2024 6:11 AM EST LAVENDER - EDTA Routine 03/07/2024 6:11 AM EST EXTRA TUBES Routine 03/07/2024 6:11 AM EST MANUAL DIFFERENTIAL - SYSMEX WAM Routine 03/06/2024 5:49 AM EST CBC WITH AUTO DIFFERENTIAL Add-On 03/06/2024 5:49 AM EST C-REACTIVE PROTEIN Add-On 03/06/2024 5: 49 AM EST CBC AND DIFFERENTIAL Add-On 03/06/2024 5:49 AM EST LAVENDER - EDTA Routine 03/06/2024 5:49 AM EST EXTRA TUBES Routine 03/06/2024 5:49 AM EST SST - GOLD Routine 03/06/2024 5:49 AM EST EXTRA TUBES Routine 03/06/2024 5:49 AM EST PROTHROMBIN TIME WITH INR Routine 03/06/2024 5:49 AM EST PROTHROMBIN TIME WITH INR Routine 03/05/2024 6:33 AM EST MANUAL DIFFERENTIAL - SYSMEX WAM Routine 03/05/2024 6:32 AM EST CBC WITH AUTO DIFFERENTIAL Add-On 03/05/2024 6:32 AM EST CBC AND DIFFERENTIAL Add-On 03/05/2024 6:32 AM EST LAVENDER - EDTA Routine 03/05/2024 6:32 AM EST SST - GOLD Routine 03/05/2024 6:32 AM EST EXTRA TUBES Routine 03/05/2024 6:32 AM EST XR CHEST 1 VIEW Routine 03/04/2024 1:10 PM EST MANUAL DIFFERENTIAL - SYSMEX WAM Routine 03/04/2024 5:38 AM EST CBC WITH AUTO DIFFERENTIAL Routine 03/04/2024 5:38 AM EST CBC AND DIFFERENTIAL Routine 03/04/2024 5:38 AM EST BASIC METABOLIC PANEL Routine 03/04/2024 5:38 AM EST PROTHROMBIN TIME WITH INR Routine 03/04/2024 5:38 AM EST THYROID STIMULATING HORMONE Add-On 03/03/2024 6:12 AM EST CBC WITH AUTO DIFFERENTIAL Routine 03/03/2024 6:12 AM EST PROTHROMBIN TIME WITH INR Routine 03/03/2024 6:12 AM EST CBC AND DIFFERENTIAL Routine 03/03/2024 6:12 AM EST BASIC METABOLIC PANEL Routine 03/03/2024 6:12 AM EST MRSA PCR Routine 03/02/2024 10:15 AM EST CBC WITH AUTO DIFFERENTIAL Routine 03/02/2024 6:46 AM EST COMPREHENSIVE METABOLIC PANEL Routine 03/02/2024 6:46 AM EST CBC AND DIFFERENTIAL Routine 03/02/2024 6:46 AM EST PROCALCITONIN Routine 03/02/2024 5:[address] ANGIO CHEST WO AND/OR W CONTRAST STAT 03/02/2024 3:48 AM EST Acute dyspnea CULTURE BLOOD STAT 03/02/2024 1:43 AM EST CULTURE THROAT STAT 03/02/2024 1:33 AM EST RESPIRATORY VIRUS PANEL MOLECULAR STUDY STAT 03/02/2024 1:33 AM EST RAPID STREP A SCREEN STAT 03/02/2024 1:33 AM EST C-REACTIVE PROTEIN Add-On 03/02/2024 1: 31 AM EST LT GREEN - LI HEPARIN Routine 03/02/2024 1:31 AM EST EXTRA TUBES Routine 03/02/2024 1:31 AM EST PROTHROMBIN TIME WITH INR STAT 03/02/2024 1:31 AM EST HEPATIC FUNCTION PANEL STAT 1:31 AM EST LACTATE, WITH REFLEX STAT 03/02/2024 1:31 AM EST TROPONIN I HIGH SENSITIVITY STAT 03/02/2024 1:31 AM EST CULTURE BLOOD STAT 03/02/2024 1:31 AM EST XR CHEST 2 VIEWS STAT 03/02/2024 1:23 AM EST ECG 12-LEAD STAT 03/02/2024 1:13 AM EST ECG ANNOTATED 03/02/2024 SANTO URINE CULTURE TUBE STAT 03/01/2024 8:50 PM EST URINALYSIS WITH REFLEX MICROSCOPIC AND CULTURE STAT 03/01/2024 8:50 PM EST URINALYSIS WITH REFLEX MICROSCOPIC AND CULTURE STAT 03/01/2024 8:50 PM EST CULTURE URINE STAT 03/01/2024 8:50 PM EST MANUAL DIFFERENTIAL - SYSMEX WAM STAT 03/01/2024 8:24 PM EST CBC WITH AUTO DIFFERENTIAL STAT 03/01/2024 8:24 PM EST TROPONIN I HIGH SENSITIVITY STAT 03/01/2024 8:24 PM EST MAGNESIUM STAT 03/01/2024 8:24 PM EST BASIC METABOLIC PANEL STAT 03/01/2024 8:24 PM EST CBC AND DIFFERENTIAL STAT 03/01/2024 8:24 PM EST MATHEUS SCREENING DIGITAL Routine 04/25/2023 1:50 PM EST Encounter for screening mammogram for malignant neoplasm of breast from Last 3 Months or Most Recently Relevant to Health Maintenance Results * (ABNORMAL) CBC auto differential (03/10/2024 5:59 AM EST) Only the most recent of10 resultswithin the time period is included. WBC 13.0(H) 4.8 - 10.8 K/mcL LAB HEMETOLOGY METHOD 03/10/2024 7:38 AM [facility] RBC 3.90 3.80 - 4.80 M/[facility] LAB HEMETOLOGY METHOD 03/10/2024 7:38 AM [facility] Hemoglobin 10.6(L) 11.5 - 16.0 g/dL LAB HEMETOLOGY METHOD 03/10/2024 7:38 AM [facility] Hematocrit 34.1(L) 35.0 - 47.0 % LAB HEMETOLOGY METHOD 03/10/2024 7:38 AM [facility] MCV 88.3 79.0 - 98.0 FL LAB HEMETOLOGY METHOD 03/10/2024 7:38 AM [facility] MCH 27.5 27.0 - 32.0 pcg LAB HEMETOLOGY METHOD 03/10/2024 7:38 AM [facility] MCHC 31.1(L) 32.0 - 37.0 g/dL LAB HEMETOLOGY METHOD 03/10/2024 7:38 AM [facility] RDW 15.3(H) 11.0 - 15.0 % LAB HEMETOLOGY METHOD 03/10/2024 7:38 AM [facility] Platelets 484(H) 130 - 400 K/mcL LAB HEMETOLOGY METHOD 03/10/2024 7:38 AM [facility] MPV 10.5 7.0 - 11.0 FL LAB HEMETOLOGY METHOD 03/10/2024 7:38 AM [facility] NRBC 0.0 <1.0 % LAB HEMETOLOGY METHOD 03/10/2024 7:38 AM [facility] NRBC Absolute 0.00 <0.10 K/mcL LAB HEMETOLOGY METHOD 03/10/2024 7:38 AM [facility] Neutrophils Relative 73.1 % LAB HEMETOLOGY METHOD 03/10/2024 7:38 AM [facility] Lymphocytes Relative 14.6 % LAB HEMETOLOGY METHOD 03/10/2024 7:38 AM [facility] Monocytes Relative 5.7 % LAB HEMETOLOGY METHOD 03/10/2024 7:38 AM [facility] Eosinophils Relative 1.9 % LAB HEMETOLOGY METHOD 03/10/2024 7:38 AM [facility] Basophils Relative 0.5 % LAB HEMETOLOGY METHOD 03/10/2024 7:38 AM [facility] Immature Granulocytes Relative 4.2 % LAB HEMETOLOGY METHOD 03/10/2024 7:38 AM [facility] Neutrophils Absolute 9.48(H) 1.50 - 7.00 K/mcL LAB HEMETOLOGY METHOD 03/10/2024 7:38 AM [facility] Lymphocytes Absolute 1.89 1.00 - 5.00 K/mcL LAB HEMETOLOGY METHOD 03/10/2024 7:38 AM EST [facility] Monocytes Absolute 0.74 0.20 - 1.00 K/[facility] LAB HEMETOLOGY METHOD 03/10/2024 7:38 AM EST [facility] Eosinophils Absolute 0.25 0.00 - 0.50 K/[facility] LAB HEMETOLOGY METHOD 03/10/2024 7:38 AM EST [facility] Basophils Absolute 0.07 0.00 - 0.20 K/[facility] LAB HEMETOLOGY METHOD 03/10/2024 7:38 AM EST [facility] Immature Granulocytes Absolute 0.54(H) 0.00 - 0.03 K/[facility] LAB HEMETOLOGY METHOD 03/10/2024 7:38 AM EST [facility] Blood Venous blood specimen / Unknown Venipuncture / Unknown 03/10/2024 5:59 AM EST 03/10/2024 7:06 AM EST us Jaxson Lawler MD LAB BLOOD ORDERABLES Final Resul t [facility] [address] [place] [address], [place] [phone] * (ABNORMAL) Prothrombin time with INR (03/10/2024 5:59 AM EST) Only the most recent of9 resultswithin the time period is included. Protime 20.8(H) 10.6 - 13.9 sec LAB COAGULATION METHOD 03/10/2024 7:44 AM EST [facility] INR 1.7 LAB COAGULATION METHOD 03/10/2024 7:44 AM EST [facility] Blood Venous blood specimen / Unknown Venipuncture / Unknown 03/10/2024 5:59 AM EST 03/10/2024 7:06 AM EST us Key Kirby NP LAB BLOOD ORDERABLES Final Res ult [facility] [address] [place] [address], * Basic metabolic panel (03/10/2024 5:59 AM EST) Only the most recent of7 resultswithin the time period is included. Sodium 135 133 - 145 mmol/L LAB CHEMISTRY METHOD 03/10/2024 8:07 AM [facility] Potassium 4.9 3.5 - 5.5 mmol/L LAB CHEMISTRY METHOD 03/10/2024 8:07 AM [facility] Chloride 102 96 - 110 mmol/L LAB CHEMISTRY METHOD 03/10/2024 8:07 AM [facility] CO2 26 21 - 32 mmol/L LAB CHEMISTRY METHOD 03/10/2024 8:07 AM [facility] Anion Gap 7 3 - 11 LAB CHEMISTRY METHOD 03/10/2024 8:07 AM [facility] Glucose 92 70 - 100 mg/dL LAB CHEMISTRY METHOD 03/10/2024 8:07 AM [facility] BUN 17 5 - 25 mg/dL LAB CHEMISTRY METHOD 03/10/2024 8:07 AM [facility] Creatinine 0.72 0.50 - 1.10 mg/dL LAB CHEMISTRY METHOD 03/10/2024 8:07 AM [facility] eGFR 90 >=60 mL/min/1. 73m2 LAB CHEMISTRY METHOD 03/10/2024 8:07 AM [facility] Comment:Calculation based on the??Chronic Kidney Disease Epidemiology Collaboration (CKD-EPI) equation refit??without adjustment for race. BUN/Creatinine Ratio 23.6 LAB CHEMISTRY METHOD 03/10/2024 8:07 AM [facility] Calcium 8.9 8.5 - 10.5 mg/dL LAB CHEMISTRY METHOD 03/10/2024 8:07 AM [facility] Blood Venous blood specimen / Unknown Venipuncture / Unknown 03/10/2024 5:59 AM EST 03/10/2024 7:06 AM EST Jaxson Lawler MD LAB BLOOD ORDERABLES Final Resul t [facility] [address] [place] [address], [place] [phone] * (ABNORMAL) Manual differential (03/09/2024 5:52 AM EST) Only the most recent of7 resultswithin the time period is included. Neutrophils % 78.0 % LAB HEMETOLOGY METHOD 03/09/2024 7:53 AM [facility] Bands % 1.0 % LAB HEMETOLOGY METHOD 03/09/2024 7:53 AM [facility] Lymphocytes % 11.0 % LAB HEMETOLOGY METHOD 03/09/2024 7:53 AM [facility] Reactive Lymphocyte 1.00 % LAB HEMETOLOGY METHOD 03/09/2024 7:53 AM [facility] Monocytes % 4.0 % LAB HEMETOLOGY METHOD 03/09/2024 7:53 AM [facility] Eosinophils % 3.0 % LAB HEMETOLOGY METHOD 03/09/2024 7:53 AM [facility] Basophils % 2.0 % LAB HEMETOLOGY METHOD 03/09/2024 7:53 AM [facility] Metamyelocytes % 1.0(H) % LAB HEMETOLOGY METHOD 03/09/2024 7:53 AM [facility] Neutrophils Absolute Manual 8.58(H) 1.50 - 7.00 K/mcL LAB HEMETOLOGY METHOD 03/09/2024 7:53 AM [facility] Bands Absolute Manual 0.11(H) 0.00 - 0.00 K/mcL LAB HEMETOLOGY METHOD 03/09/2024 7:53 AM [facility] Lymphocytes Absolute 1.21 1.00 - 5.00 K/mcL LAB HEMETOLOGY METHOD 03/09/2024 7:53 AM [facility] Reactive Lymph Abs Manual 0.11(H) 0.00 - 0.00 lym LAB HEMETOLOGY METHOD 03/09/2024 7:53 AM [facility] Monocytes Absolute Manual 0.44 0.20 - 1.00 K/mcL LAB HEMETOLOGY METHOD 03/09/2024 7:53 AM [facility] Eosinophils Absolute Manual 0.33 0.00 - 0.50 K/mcL LAB HEMETOLOGY METHOD 03/09/2024 7:53 AM [facility] Basophils Absolute Manual 0.22(H) 0.00 - 0.20 K/mcL LAB HEMETOLOGY METHOD 03/09/2024 7:53 AM [facility] Metamyelocytes Absolute Manual 0.11(H) 0.00 - 0.00 K/mcL LAB HEMETOLOGY METHOD 03/09/2024 7:53 AM [facility] Rbc Morphology See comment( A) Consistent with indices, Normal for LAB HEMETOLOGY METHOD 03/09/2024 7:53 AM [facility] Comment:RBC: Morphology agre es with CBC Platelet Morphology - WAM See Note(A) Normal LAB HEMETOLOGY METHOD 03/09/2024 7:53 AM [facility] Comment:PLT: Normal Blood Venous blood specimen / Unknown Venipuncture / Unknown 03/09/2024 5:52 AM EST 03/09/2024 6:58 AM EST us Jaxson Lawler MD LAB BLOOD ORDERABLES Final Resul t [facility] [address] [place] [address], [place] [phone] * Lavender tube (03/08/2024 6:52 AM EST) Only the most recent of4 resultswithin the time period is included. Extra Tube Hold for add-ons. 03/08/2024 9:01 AM EST [facility] Comment:Auto resulted. Blood Venous blood specimen / Unknown Venipuncture / Unknown 03/08/2024 6:52 AM EST 03/08/2024 7:45 AM EST Jaxson Lawler MD LAB BLOOD ORDERABLES Final Resul t Performing Organization Address [facility] de Phone Number [facility] [address] [place] [address], [place] [phone] * XR Esophagram (03/07/2024 3:09 PM EST) Anatomical Region Laterality Modality Head and Neck Radiographic Lizbeth ging 03/07/2024 3:27 PM EST Impressions 03/08/2024 8:02 AM EST Limited exam as explained above. 1.Small amount of flash laryngeal penetration without cecilio aspiration on rapid sequence swallowing of thin barium. 2.Status post esophagectomy with gastric pull through with widely patent esophagogastric anastomosis. -------- FINAL REPORT -------- Dictated By: Arianne Hobbs Dictated Date: 03/07/2024 15:27 ET Assigned Physician: Ac Schneider Reviewed and Electronically Signed By: Ac Schneider Signed Date: 03/08/2024 08:02 ET Workstation ID: [id number] Transcribed By: Self Edit Transcribed Date: 03/07/2024 15:34 ET Resident/PA/BASEBALL UMPIRE [employer]: Arianne Hobbs Narrative 03/08/2024 8:02 AM EST FINDINGS: Double contrast esophagram performed. Exam limited due to patient inability to stand or lay prone. COMPARISON: No prior esophagram imaging HISTORY: Patient is a 68-year-old female with history of aspiration, esophagectomy with gastric pull-through. Housing Counselor radiographs: None Effervescent crystals were administered orally. Thick and thin barium were administered orally under fluoroscopic control. Pharyngoesophagram: Rapid sequence imaging of the hypopharynx during swallowing demonstrates prompt initiation of swallowing. There is normal soft palate elevation. There is a very small amount of flash laryngeal penetration without cecilio aspiration. There is no residual in the vallecula nor in the piriform sinuses. The patient seems to have undergone a previous esophagectomy with gastric pull-through. Visualized proximal remaining portion of esophagus demonstrates normal distensibility and mucosal pattern without evidence of ulceration, stricture or mass formation. ??Intrathoracic stomach is visualized overlying the right chest. Esophagogastric anastomosis is well-visualized and widely patent. Patient was instructed to swallow 13 mm barium tablet which did pass freely through the esophagus into the intrathoracic stomach. DAP: 5.34 Gycm^2 Procedure Note Ac Schneider MD - 03/08/2024 FINDINGS: Double contrast esophagram performed. Exam limited due topatient inability to stand or lay prone. COMPARISON: No prior esophagram imaging HISTORY: Patient is a 68-year-old female with history of aspiration,esophagectomy with gastric pull-through. Housing Counselor radiographs: None Effervescent crystals were administered orally. Thick and thin barium wereadministered orally under fluoroscopic control. Pharyngoesophagram: Rapid sequence imaging of the hypopharynx duringswallowing demonstrates prompt initiation of swallowing. There is normalsoft palate elevation. There is a very small amount of flash laryngealpenetration without cecilio aspiration. There is no residual in thevallecula nor in the piriform sinuses. The patient seems to have undergone a previous esophagectomy with gastricpull-through. Visualized proximal remaining portion of esophagusdemonstrates normal distensibility and mucosal pattern without evidence ofulceration, stricture or mass formation. Intrathoracic stomach isvisualized overlying the right chest. Esophagogastric anastomosis iswell-visualized and widely patent. Patient was instructed to swallow 13 mmbarium tablet which did pass freely through the esophagus into theintrathoracic stomach. DAP: 5.34 Gycm^2 IMPRESSION: Limited exam as explained above. 1.Small amount of flash laryngeal penetration without cecilio aspiration onrapid sequence swallowing of thin barium. 2.Status post esophagectomy with gastric pull through with widely patentesophagogastric anastomosis. -------- FINAL REPORT -------- Dictated By: Arianne Hobbs Dictated Date: 03/07/2024 15:27 ET Assigned Physician: Ac Schneider Reviewed and Electronically Signed By: Ac Schneider Signed Date: 03/08/2024 08:02 ET Workstation ID: [id number] Transcribed By: Self Edit Transcribed Date: 03/07/2024 15:34 ET Resident/PA/BASEBALL UMPIRE [employer]: Arianne Hobbs us Jaxson Lawler MD IMG FLUOROSCOPY PROCEDURES Final Result * SST tube (03/06/2024 5:49 AM EST) Only the most recent of2 resultswithin the time period is included. Pathologist [facility] Extra Tube Hold for add-ons. 03/06/2024 8:01 AM EST [facility] Comment:Auto resulted. Blood Venous blood specimen / Unknown Venipuncture / Unknown 03/06/2024 5:49 AM EST 03/06/2024 6:54 AM EST us Jaxson Lawler MD LAB BLOOD ORDERABLES Final Resul t [facility] [address] [place] [address], [place] [phone] * (ABNORMAL) C-reactive protein (03/06/2024 5:49 AM EST) Only the most recent of2 resultswithin the time period is included. Pathologist [facility] C-Reactive Protein 9.93(H) <=0.50 mg/dL LAB CHEMISTRY METHOD 03/06/2024 9:56 AM EST [facility] Blood Venous blood specimen / Unknown Venipuncture / Unknown 03/06/2024 5:49 AM EST 03/06/2024 6:54 AM EST us Jaxson Lawler MD LAB BLOOD ORDERABLES Final Resul t [facility] LAB [address] [place] [address], * XR Chest 1 View (03/04/2024 1:10 PM EST) Anatomical Region Laterality Modality Body Radiographic Lizbeth ging 03/06/2024 9:21 AM EST Impressions 03/06/2024 9:23 AM EST Previous cardiac surgery with prosthetic mitral valve. Suspect previous esophagectomy. Worsening aeration of the left lower chest. The patient declined swallowing study -------- FINAL REPORT -------- Dictated By: Parish Spaulding Dictated Date: 03/06/2024 09:21 ET Assigned Physician: Parish Spaulding Reviewed and Electronically Signed By: Parish Spaulding Signed Date: 03/06/2024 09:23 ET Workstation ID: [id number] Transcribed By: Self Edit Transcribed Date: 03/06/2024 09:21 ET Narrative 03/06/2024 9:23 AM EST EXAMINATION: CHEST CLINICAL INFORMATION: Dysphagia The patient was scheduled to undergo swallowing assessment. The patient declined the exam. Radiograph obtained prior to contrast administration COMPARISON: Frontal view 03/02/2024 TECHNIQUE: Frontal view of the chest FINDINGS: Evidence of sternotomy and mediastinal surgery with prosthetic cardiac valve. Calcified aorta. Prominent but unchanged cardiac silhouette. The central vessels are prominent and indistinct. Hazy density in the medial right chest. This may correlate with an intrathoracic stomach following esophagectomy. The central vessels are prominent and indistinct. There are hazy densities in the lower lung zones greatest at the left base. There is no pneumothorax. Procedure Note Parish Spaulding MD - 03/06/2024 EXAMINATION: CHEST CLINICAL INFORMATION: Dysphagia The patient was scheduled to undergo swallowing assessment. The patientdeclined the exam. Radiograph obtained prior to contrast administration COMPARISON: Frontal view 03/02/2024 TECHNIQUE: Frontal view of the chest FINDINGS: Evidence of sternotomy and mediastinal surgery with prosthetic cardiacvalve. Calcified aorta. Prominent but unchanged cardiac silhouette. Thecentral vessels are prominent and indistinct. Hazy density in the medial right chest. This may correlate with anintrathoracic stomach following esophagectomy. The central vessels areprominent and indistinct. There are hazy densities in the lower lung zonesgreatest at the left base. There is no pneumothorax. IMPRESSION: Previous cardiac surgery with prosthetic mitral valve. Suspect previousesophagectomy. Worsening aeration of the left lower chest. The patient declined swallowing study -------- FINAL REPORT -------- Dictated By: Parish Spaulding Dictated Date: 03/06/2024 09:21 ET Assigned Physician: Parish Spaulding Reviewed and Electronically Signed By: Parish Spaulding Signed Date: 03/06/2024 09:23 ET Workstation ID: [id number] Transcribed By: Self Edit Transcribed Date: 03/06/2024 09:21 ET Jaxson Lawler MD IMG XR PROCEDURES Final Result * Thyroid stimulating hormone (03/03/2024 6:12 AM EST) [facility] TSH 1.36 0.40 - 4.00 mcIU/mL LAB CHEMISTRY METHOD 03/03/2024 2:53 PM EST [facility] Blood Venous blood specimen / Unknown Venipuncture / Unknown 03/03/2024 6:12 AM EST 03/03/2024 6:42 AM EST Kaitlin Desai MD LAB BLOOD ORDERABLES Final Res ult [facility] [address] [place] [address], [place] [phone] * MRSA molecular study (03/02/2024 10:15 AM EST) [facility] MRSA Screen PCR Not Detected Not Detected LAB MICROBIOLOGY METHOD 03/02/2024 12:43 PM EST [facility] Swab Nasopharyngeal structure / Unknown Non-blood Collection / Unknown 03/02/2024 10:15 AM EST 03/02/2024 10:38 AM EST us Key Kirby NP LAB MICROBIOLOGY - GENERAL ORD ERABLES Final Result [facility] [address] [place] [address], [place] [phone] * (ABNORMAL) Comprehensive metabolic panel (03/02/2024 6:46 AM EST) Sodium 133 133 - 145 mmol/L LAB CHEMISTRY METHOD 03/02/2024 7:23 AM [facility] Potassium 3.7 3.5 - 5.5 mmol/L LAB CHEMISTRY METHOD 03/02/2024 7:23 AM [facility] Chloride 102 96 - 110 mmol/L LAB CHEMISTRY METHOD 03/02/2024 7:23 AM [facility] CO2 23 21 - 32 mmol/L LAB CHEMISTRY METHOD 03/02/2024 7:23 AM [facility] Anion Gap 8 3 - 11 LAB CHEMISTRY METHOD 03/02/2024 7:23 AM [facility] Glucose 114(H) 70 - 100 mg/dL LAB CHEMISTRY METHOD 03/02/2024 7:23 AM [facility] BUN 34(H) 5 - 25 mg/dL LAB CHEMISTRY METHOD 03/02/2024 7:23 AM [facility] Creatinine 1.14(H) 0.50 - 1.10 mg/dL LAB CHEMISTRY METHOD 03/02/2024 7:23 AM [facility] eGFR 52(L) >=60 mL/min/1. 73m2 LAB CHEMISTRY METHOD 03/02/2024 7:23 AM [facility] Comment:Calculation based on the??Chronic Kidney Disease Epidemiology Collaboration (CKD-EPI) equation refit??without adjustment for race. BUN/Creatinine Ratio 29.8 LAB CHEMISTRY METHOD 03/02/2024 7:23 AM [facility] Calcium 8.4(L) 8.5 - 10.5 mg/dL LAB CHEMISTRY METHOD 03/02/2024 7:23 AM [facility] AST (SGOT) 51(H) 10 - 42 unit/L LAB CHEMISTRY METHOD 03/02/2024 7:23 AM [facility] ALT (SGPT) 58 10 - 60 unit/L LAB CHEMISTRY METHOD 03/02/2024 7:23 AM [facility] Alkaline Phosphatase 135(H) 42 - 121 unit/L LAB CHEMISTRY METHOD 03/02/2024 7:23 AM [facility] Total Protein 6.4 6.0 - 8.0 g/dL LAB CHEMISTRY METHOD 03/02/2024 7:23 AM [facility] Albumin 2.5(L) 3.2 - 5.0 g/dL LAB CHEMISTRY METHOD 03/02/2024 7:23 AM [facility] Total Bilirubin 0.7 0.0 - 1.4 mg/dL LAB CHEMISTRY METHOD 03/02/2024 7:23 AM [facility] Blood Venous blood specimen / Unknown Venipuncture / Unknown 03/02/2024 6:46 AM EST 03/02/2024 6:51 AM EST us Ra Lujan MD LAB BLOOD ORDERABLES Final Result [facility] [address] [place] [address], * (ABNORMAL) Procalcitonin (03/02/2024 5:39 AM EST) Procalcitonin 3.58(H) <=0.16 ng/mL LAB CHEMISTRY METHOD 03/02/2024 11:30 AM [facility] Blood Venous blood specimen / Unknown Venipuncture / Unknown 03/02/2024 5:39 AM EST 03/02/2024 5:58 AM EST Narrative [facility] - 03/02/2024 11:30 AM EST Procalcitonin > 2.00 ng/ml: Procalcitonin Levels above 2.00 ng/ml, on the first day of ICU admission represent a high risk for progression to severe sepsis and/or septic shock. Procalcitonin < 0.50 ng/ml: Procalcitonin levels below 0.50 ng/ml on the first day of ICU admission represent a low risk for progression to severe sepsis and/or septic shock. Concentrations <0.5 ng/mL do not exclude an infection, on account of local ized infections (without systemic signs) which can be associated with such low concentrations, or a systemic infection in its initial stages (<6 hours). Furthermore, increased procalcitonin can occur without infection. PCT concentrations between 0.5 and 2.0 ng/mL should be interpreted taking into account the patient's history. It is recommended to retest PCT within 6-24 hours if any concentrations <2.0 ng/mL are obtained. us Ra Lujan MD LAB BLOOD ORDERABLES Final Result [facility] [address] [place] [address], * CT Angio Chest wo and/or w Contrast (03/02/2024 3:48 AM EST) Anatomical Region Laterality Modality Body Computed Tomogra phy 03/02/2024 5:20 AM EST Impressions 03/02/2024 5:20 AM EST 1. No evidence of PE. 2. Bilateral atelectasis with multifocal dense consolidations bilaterally, pronounced in the left lower lobe. Aspiration or pneumonia are considered. This document has been electronically signed by: Giuliano Aguirre MD on 03/02/2024 05:20:14 Narrative 03/02/2024 5:[address] angiography chest with contrast. 3D Postprocessing. Comparison: None Findings: Cardiomegaly without significant pericardial effusion. Coronary artery calcifications. Unremarkable thoracic aorta and great vessels. No aneurysm. No pulmonary artery filling defects. Mild mediastinal and hilar adenopathy. Right-sided hypodense thyroid nodule measuring 1.2 cm. This may be further evaluated with ultrasound. Possible esophagectomy with gastric pull-through, should be correlated clinically. Emphysema. Bilateral atelectasis with multifocal dense consolidations bilaterally, pronounced in the left lower lobe. The upper abdomen is unremarkable. No acute fractures. Post sternotomy changes. Calcified granulomas in the liver. Colonic diverticulosis. Procedure Note Giuliano Aguirre MD - 03/02/2024 CT angiography chest with contrast. 3D Postprocessing. Comparison: None Findings: Cardiomegaly without significant pericardial effusion. Coronary artery calcifications. Unremarkable thoracic aorta and great vessels. No aneurysm. No pulmonary artery filling defects. Mild mediastinal and hilar adenopathy. Right-sided hypodense thyroid nodule measuring 1.2 cm. This may befurther evaluated with ultrasound. Possible esophagectomy with gastric pull-through, should be correlated clinically. Emphysema. Bilateral atelectasis with multifocal dense consolidations bilaterally, pronounced in the left lower lobe. The upper abdomen is unremarkable. No acute fractures. Post sternotomy changes. Calcified granulomas in the liver. Colonic diverticulosis. IMPRESSION: 1. No evidence of PE. 2. Bilateral atelectasis with multifocal dense consolidationsbilaterally, pronounced in the left lower lobe. Aspiration or pneumonia areconsidered. This document has been electronically signed by: Giuliano Aguirre MD on 03/02/2024 05:20:14 Gale Sandoval MD IMG CT PROCEDURES Final Result * Blood culture (03/02/2024 1:43 AM EST) Only the most recent of2 resultswithin the time period is included. Culture, Blood No growth at 5 days 03/07/2024 7:01 AM EST [facility] Blood Venous blood specimen / Unknown Venipuncture / Unknown 03/02/2024 1:43 AM EST 03/02/2024 1:52 AM EST Gale Sandoval MD LAB MICROBIOLOGY - [facility] ORDERABLES Final Result [facility] [address] [place] [address], * Respiratory virus panel molecular study (03/02/2024 1:33 AM EST) Adenovirus Detection by PCR Not Detected Not Detected LAB MICROBIOLOGY METHOD 03/02/2024 2:53 AM EST [facility] Influenza A PCR Not Detected Not Detected LAB MICROBIOLOGY METHOD 03/02/2024 2:53 AM EST [facility] Influenza B PCR Not Detected Not Detected LAB MICROBIOLOGY METHOD 03/02/2024 2:53 AM EST [facility] Coronavirus 229E Not Detected Not Detected LAB MICROBIOLOGY METHOD 03/02/2024 2:53 AM EST [facility] Coronavirus HKU1 Not Detected Not Detected LAB MICROBIOLOGY METHOD 03/02/2024 2:53 AM EST [facility] Coronavirus OC43 Not Detected Not Detected LAB MICROBIOLOGY METHOD 03/02/2024 2:53 AM EST [facility] Coronavirus NL63 Not Detected Not Detected LAB MICROBIOLOGY METHOD 03/02/2024 2:53 AM EST [facility] Parainfluenza Virus 1 Not Detected Not Detected LAB MICROBIOLOGY METHOD 03/02/2024 2:53 AM EST [facility] Parainfluenza Virus 2 Not Detected Not Detected LAB MICROBIOLOGY METHOD 03/02/2024 2:53 AM EST [facility] Parainfluenza Virus 3 Not Detected Not Detected LAB MICROBIOLOGY METHOD 03/02/2024 2:53 AM EST [facility] Parainfluenza Virus 4 Not Detected Not Detected LAB MICROBIOLOGY METHOD 03/02/2024 2:53 AM EST [facility] RSV PCR Not Detected Not Detected LAB MICROBIOLOGY METHOD 03/02/2024 2:53 AM EST [facility] Human Metapneumovirus A and B Not Detected Not Detected LAB MICROBIOLOGY METHOD 03/02/2024 2:53 AM EST [facility] Rhinovirus/Entero virus Not Detected Not Detected LAB MICROBIOLOGY METHOD 03/02/2024 2:53 AM EST [facility] Bordetella pertussis Not Detected Not Detected LAB MICROBIOLOGY METHOD 03/02/2024 2:53 AM EST [facility] Bordetella parapertussis Not Detected Not Detected LAB MICROBIOLOGY METHOD 03/02/2024 2:53 AM EST [facility] Mycoplasma pneumo by PCR Not Detected Not Detected LAB MICROBIOLOGY METHOD 03/02/2024 2:53 AM EST [facility] Chlamydia pneumoniae Not Detected Not Detected LAB MICROBIOLOGY METHOD 03/02/2024 2:53 AM [facility] SARS COV-2 Not Detected Not Detected LAB MICROBIOLOGY METHOD 03/02/2024 2:53 AM [facility] Swab Both anterior nares / Unknown Non-blood Collection / Unknown 03/02/2024 1:33 AM EST 03/02/2024 1:53 AM EST Narrative [facility] - 03/02/2024 2:53 AM EST Testing was performed using the [employer] Respiratory Pathogen PCR Assay. All results must be correlated with the clinical findings. Results should not be used as the sole basis for diagnosis. False Negative results may occur from the presence of sequence variants in the region targeted by the assay or the presence of inhibitors. Results may be affected by concurrent antiviral/antimicrobial therapy or levels of organisms that are below the limit of detection. us Gale Sandoval MD LAB MICROBIOLOGY - GENER AL ORDERABLES Final Result [facility] [address] [place] [address], * Rapid strep A screen (03/02/2024 1:33 AM EST) [facility] Signature Strep A Ag Negative Negative, Invalid 03/02/2024 4:19 AM EST [facility] Comment:Refer to Throat Cult ure. Swab Structure of anterior portion of neck / Unknown Non-blood Collection / Unknown 03/02/2024 1:33 AM EST 03/02/2024 1:53 AM EST Gale Sandoval MD LAB MICROBIOLOGY - GENER AL ORDERABLES Final Result Performing Organization Address [facility]/ZIP Co de Phone Number [facility] [address] [place] [address], [place] [phone] * Culture throat (03/02/2024 1:33 AM EST) Culture, Throat No pathogens isolated. 03/04/2024 12:51 PM EST [facility] Swab Structure of anterior portion of neck / Unknown Non-blood Collection / Unknown 03/02/2024 1:33 AM EST 03/02/2024 1:53 AM EST Gale Sandoval MD LAB MICROBIOLOGY - GENER AL ORDERABLES Final Result Performing Organization Address [facility] Co de Phone Number [facility] [address] [place] [address], [place] [phone] * Lactate, with reflex (03/02/2024 1:31 AM EST) LACTIC ACID 1.8 0.4 - 2.0 mmol/L LAB CHEMISTRY METHOD 03/02/2024 2:31 AM EST [facility] Blood Venous blood specimen / Unknown Venipuncture / Unknown 03/02/2024 1:31 AM EST 03/02/2024 1:53 AM EST Gale Sandoval MD LAB BLOOD ORDERABLES Fin al Result Performing Organization Address [facility]/ZIP Co de Phone Number [facility] [address] [place] [address], [place] [phone] * Troponin I high sensitivity (03/02/2024 1:31 AM EST) Only the most recent of2 resultswithin the time period is included. [facility] High Sensitivity Troponin I 15 <=54 ng/L LAB CHEMISTRY METHOD 03/02/2024 2:35 AM EST [facility] Blood Venous blood specimen / Unknown Venipuncture / Unknown 03/02/2024 1:31 AM EST 03/02/2024 1:51 AM EST Narrative [facility] - 03/02/2024 2:35 AM EST High levels of biotin in samples may falsely decrease hsTroponin values. ??Use caution when interpreting hsTroponin results in patients taking biotin who exhibit renal impairment (eGFR <60) or in patients taking more than 20 mg/day of biotin. us Theron Jimenes DO LAB BLOOD ORDERABLES Final Resu lt Performing Organization Address City/[facility]/ZIP Co de Phone Number [facility] [address] [place] [address], [place] [phone] * Green LI heparin tube (03/02/2024 1:31 AM EST) [facility] Extra Tube Hold for add-ons. 03/02/2024 3:06 AM EST [facility] Comment:Auto resulted. Blood Venous blood specimen / Unknown 03/02/2024 1:31 AM EST 03/02/2024 1:52 AM EST us Gale Sandoval MD LAB BLOOD ORDERABLES Fin al Result [facility] [address] [place] [address], [place] [phone] * (ABNORMAL) Hepatic function panel (03/02/2024 1:31 AM EST) [facility] Total Protein 7.5 6.0 - 8.0 g/dL LAB CHEMISTRY METHOD 03/02/2024 3:16 AM [facility] Albumin 3.1(L) 3.2 - 5.0 g/dL LAB CHEMISTRY METHOD 03/02/2024 3:16 AM [facility] Total Bilirubin 1.0 0.0 - 1.4 mg/dL LAB CHEMISTRY METHOD 03/02/2024 3:16 AM [facility] Bilirubin, Direct 0.6(H) 0.0 - 0.3 mg/dL LAB CHEMISTRY METHOD 03/02/2024 3:16 AM [facility] Bilirubin, Indirect 0.4 0.0 - 1.1 mg/dL LAB CHEMISTRY METHOD 03/02/2024 3:16 AM [facility] ALT (SGPT) 75(H) 10 - 60 unit/L LAB CHEMISTRY METHOD 03/02/2024 3:16 AM [facility] AST (SGOT) 71(H) 10 - 42 unit/L LAB CHEMISTRY METHOD 03/02/2024 3:16 AM [facility] Alkaline Phosphatase 165(H) 42 - 121 unit/L LAB CHEMISTRY METHOD 03/02/2024 3:16 AM [facility] Blood Venous blood specimen / Unknown Venipuncture / Unknown 03/02/2024 1:31 AM EST 03/02/2024 1:51 AM EST us Gale Sandoval MD LAB BLOOD ORDERABLES Fin al Result [facility] [address] [place] [address], * XR Chest 2 Views (03/02/2024 1:23 AM EST) Anatomical Region Laterality Modality Body Radiographic Lizbeth ging 03/02/2024 8:32 AM EST Impressions 03/02/2024 8:35 AM EST Oval opacity projecting to the right chest is consistent with surgical changes of gastric pull-through with stomach noted in the posterior mediastinum of the right chest as demonstrated on CT available for review at time of interpretation. ??Patchy consolidation in the mid right chest and left lung base is better visualized on CT as well. -------- FINAL REPORT -------- Dictated By: Ra Cantu Dictated Date: 03/02/2024 08:32 ET Assigned Physician: Ra Cantu Reviewed and Electronically Signed By: Ra Cantu Signed Date: 03/02/2024 08:35 ET Workstation ID: [id number] Transcribed By: Self Edit Transcribed Date: 03/02/2024 08:32 ET Narrative 03/02/2024 8:35 AM EST Frontal and lateral view of the chest COMPARISON: Chest radiograph June 2021. ??CT chest performed same day. INDICATION: Cardiomegaly versus mass. Procedure Note Ra Cantu MD - 03/02/2024 Frontal and lateral view of the chest COMPARISON: Chest radiograph June 2021. CT chest performed same day. INDICATION: Cardiomegaly versus mass. IMPRESSION: Oval opacity projecting to the right chest is consistent with surgicalchanges of gastric pull-through with stomach noted in the posteriormediastinum of the right chest as demonstrated on CT available for reviewat time of interpretation. Patchy consolidation in the mid right chestand left lung base is better visualized on CT as well. -------- FINAL REPORT -------- Dictated By: Ra Cantu Dictated Date: 03/02/2024 08:32 ET Assigned Physician: Ra Cantu Reviewed and Electronically Signed By: Ra Cantu Signed Date: 03/02/2024 08:35 ET Workstation ID: [id number] Transcribed By: Self Edit Transcribed Date: 03/02/2024 08:32 ET us Ra Lujan MD IMG XR PROCEDURES Final Res ult * ECG 12 lead (03/02/2024 1:13 AM EST) Ventricular Rate ECG 90 BPM GEMUSE Atrial Rate 90 BPM GEMUSE P-R Interval 138 ms GEMUSE QRS Duration 78 ms GEMUSE Q-T Interval 364 ms GEMUSE QTc 445 ms GEMUSE P Wave [place] 42 degrees GEMUSE R [place] 17 degrees GEMUSE T [place] 47 degrees GEMUSE ECG Interpretation Normal sinus rhythm Normal ECG When compared with ECG of 17-JUL-2021 21:37, Vent. rate has increased BY ??[address] now depressed in Anterior leads Confirmed by ROB BANKS ([id number]) on 03/02/2024 5:26:50 PM [facility] 03/02/2024 1:13 AM EST 03/02/2024 5:26 PM EST Theron Jimenes DO ECG ORDERABLES Final Result [facility] * ECG-Annotated (03/02/2024) Provider Onbase ECG ORDERABLES Final Result * (ABNORMAL) Urinalysis with reflex microscopic and culture (03/01/2024 8:50 PM EST) Specific [place] Urine 03/01/2024 9:53 PM [facility] Comment:Unable to interpret due to color interference. pH, Urine 03/01/2024 9:53 PM [facility] Comment:Unable to interpret due to color interference. Leukocytes, Urine 03/01/2024 9:53 PM [facility] Comment:Unable to interpret due to color interference. Nitrite, Urine 03/01/2024 9:53 PM [facility] Comment:Unable to interpret due to color interference. Protein, Urine 03/01/2024 9:53 PM [facility] Comment:Unable to interpret due to color interference. Glucose, Urine 03/01/2024 9:53 PM [facility] Comment:Unable to interpret due to color interference. Ketones, Urine 03/01/2024 9:53 PM EST [facility] Comment:Unable to interpret due to color interference. Urobilinogen, Urine 03/01/2024 9:53 PM EST [facility] Comment:Unable to interpret due to color interference. Bilirubin, Urine 03/01/2024 9:53 PM [facility] Comment:Unable to interpret due to color interference. Blood, Urine 03/01/2024 9:53 PM [facility] Comment:Unable to interpret due to color interference. RBC, Urine 4 0 - 4 /HPF 03/01/2024 9:53 PM [facility] WBC, Urine 30(H) 0 - 4 /HPF 03/01/2024 9:53 PM [facility] Squamous Epithelial, Urine 40 0 - 60 /LPF 03/01/2024 9:53 PM [facility] Bacteria, Urine Moderate(A) Negative /HPF 03/01/2024 9:53 PM [facility] Hyaline Casts, Urine 10(H) 0 - 3 /LPF 03/01/2024 9:53 PM [facility] Other Casts, Urine ..Rare Coarse Granular casts. /LPF 03/01/2024 9:53 PM [facility] Urine Urine specimen obtained by clean catch procedure / Unknown Non-blood Collection / Unknown 03/01/2024 8:50 PM EST 03/01/2024 9:22 PM EST us Theron Jimenes DO LAB URINE ORDERABLES Final Resu lt [facility] [address] [place] [address], * [place] urine culture tube (03/01/2024 8:50 PM EST) Extra Tube Hold for add-ons. 03/01/2024 11:01 PM EST [facility] Comment:Auto resulted. Urine Urine specimen obtained by clean catch procedure / Unknown Non-blood Collection / Unknown 03/01/2024 8:50 PM EST 03/01/2024 9:22 PM EST Theron Jimenes DO LAB URINE ORDERABLES Final Resu lt Performing Organization Address City/[facility]/ZIP Co de Phone Number [facility] [address] [place] [address], [place] [phone] * Culture urine (03/01/2024 8:50 PM EST) Pathologist [facility] Culture, Urine 10,000-49,000 CFU/mL Mixed urogenital adrian, no uropathogens present. Suggest repeat specimen if clinically indicated. 03/03/2024 10:48 AM EST [facility] Urine Urine specimen obtained by clean catch procedure / Unknown Non-blood Collection / Unknown 03/01/2024 8:50 PM EST 03/01/2024 9:53 PM EST us Theron Jimenes DO LAB MICROBIOLOGY - GENERAL ORDE RABLES Final Result Performing Organization Address [facility] Co de Phone Number [facility] [address] [place] [address], [place] [phone] * Magnesium (03/01/2024 8:24 PM EST) Magnesium 2.3 1.9 - 2.6 mg/dL LAB CHEMISTRY METHOD 03/01/2024 11:24 PM EST [facility] Blood Venous blood specimen / Unknown Venipuncture / Unknown 03/01/2024 8:24 PM EST 03/01/2024 9:22 PM EST us Theron Jimenes DO LAB BLOOD ORDERABLES Final Resu lt Performing Organization Address City/[facility]/ZIP Co de Phone Number [facility] [address] [place] [address], * [facility] SCREENING DIGITAL (04/25/2023 1:50 PM EST) Anatomical Region Laterality Modality Mammography 04/25/2023 10:4 8 AM EST Narrative 04/25/2023 1:50 PM EST [facility] Diagnostic Imaging Department [address] [place] [address] Patient: ??CHULA ZAVALA ?/Age/Sex: 1955 - 67 - F Unit#: ??[id number] ? Location/Status: ??SPDIMAM/REG CLI ? Mnemonic/Ordering Site: ??DIGSC/SPMAM Ordering Physician: ??CALLUM RITTER MD [facility] Screening Digital - 04/25/23 - 1107 Report Status:Signed EXAM: [facility] Screening Digital EXAM DATE AND TIME: 04/25/2023 11:07 AM HISTORY: ??Annual screening COMPARISON: ??Multiple exams dating back to 2014 TECHNIQUE: Bilateral digital breast tomosynthesis was performed in the CC and MLO projections. Computer aided detection with [employer] 3D 3.1 was employed. TISSUE DENSITY: b. There are scattered areas of fibroglandular density. FINDINGS: No suspicious masses, grouped microcalcifications, or areas of architectural distortion are seen. The skin and vascularity are unremarkable. IMPRESSION: Stable mammographic appearance of the breasts. ??No evidence of malignancy is seen. A negative mammogram in the presence of a clinically suspicious palpable abnormality does not preclude the possibility of malignancy or alter the indications for biopsy. BI-RADS: ??Category 1: Negative RECOMMENDATION(S): 1: Routine screening mammogram BILATERAL in 1 year. 3341F, 7025F Dictating Physician: ??CHRISTA VALLECILLO MD Electronically Signed by: ??CHRISTA VALLECILLO MD Dic Date/Time: ??04/25/23 1349 Sign date/Time: ??04/25/23 1350 Procedure Note Christa Vallecillo MD - 10/09/2023 [facility] Diagnostic Imaging Department [address] [place], [place] [id number] Patient: CHULA ZAVALA /Age/Sex: 1955 - 67 - F Unit#: [id number] Location/Status: [facility] Mnemonic/Ordering Site: [facility] Ordering Physician: CALLUM RITTER MD [facility] Screening Digital - 04/25/23 - 1107 Report Status:Signed EXAM: [facility] Screening Digital EXAM DATE AND TIME: 04/25/2023 11:07 AM HISTORY: Annual screening COMPARISON: Multiple exams dating back to 2014 TECHNIQUE: [facility]ilateral [facility] Computer aided detection with [employer] 3D 3.1was employed. TISSUE DENSITY: b. There are scattered areas of fibroglandular density. FINDINGS: No suspicious masses, grouped microcalcifications, or areas ofarchitectural distortion are seen. The skin and vascularity are unremarkable. IMPRESSION: Stable mammographic appearance of the breasts. No evidence of malignancyis seen. A negative mammogram in the presence of a clinically suspicious palpable abnormality does not preclude the possibility of malignancy or alter the indications for biopsy. BI-RADS: Category 1: Negative RECOMMENDATION(S): 1: Routine screening mammogram BILATERAL in 1 year. 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 Do not modify or discontinue any currently active code status orders. Healthcare Agents on File Name Relationship Healthcare Agent Relationshi p Communication [facility] Agent Care Teams Gambling Floor Supervisor Relationship Specialty Start Date End Date Callum Ritter MD [address] [place] [address] PCP - General 03/17/22
== END 2024-04-10 14:34 | disposition home or self-care (01) ==
PROVIDERS: PCP Internal Medicine; Visit Provider Internal Medicine
DX: Z09 Encounter for follow-up examination after completed treatment for conditions other than malignant neoplasm (principal); J18.9 Pneumonia, unspecified organism; R42 Dizziness and giddiness; I10 Essential (primary) hypertension; Z95.0 Presence of cardiac pacemaker; Z91.09 Other allergy status, other than to drugs and biological substances; R68.89 Other general symptoms and signs; E78.9 Disorder of lipoprotein metabolism, unspecified; Z79.01 Long term (current) use of anticoagulants; F41.1 Generalized anxiety disorder; C15.9 Malignant neoplasm of esophagus, unspecified

== ENCOUNTER → 2024-04-10 14:24 | Outpatient (BNV) | payer OTHER, SELFPAY | PROVIDERS: PCP Internal Medicine; Visit Provider Radiology Diagnostic Radiology | DX: J18.9 Pneumonia, unspecified organism (principal) | CPT/HCPCS: 71046 ==

== ENCOUNTER 2024-05-21 11:50 | Outpatient (AMB) | payer OTHER, SELFPAY ==
[2024-05-21 11:55] VITALS: BP 148/60; PULSE 65; O2SAT 97; BMI 24.6
--- NOTE | 2024-05-21 11:55 | MHC.PC.OV ---
Vital Signs 05/21/24 11:55 Height 5 ft 4 in Weight 143 lb 8 oz BMI 24.6 BP 148/60 H Blood Pressure Location Lt brachial Position Sitting Pulse 65 Pulse Source Pulse Oximeter Pulse Oximetry (%) 97 Oxygen Delivery Method Room Air Intake Visit Reasons: bump on left ear Allergies penicillin G Allergy (Intermediate, Verified 04/10/24 13:31) rash Iodinated Contrast Media [IV Contrast Dye] Allergy (Unknown, Verified 04/10/24 13:31) Unknown hydrochlorothiazide Adverse Reaction (Intermediate, Verified 04/10/24 13:31) Vomiting seafood Allergy (Unknown, Uncoded 12/14/21 10:34) unknown-listed from another source Medication List - Last Reconciled 05/21/24 by Callum Muñoz MD [Blood pressure monitor As directed] cetirizine (Zyrtec) 10 mg PO DAILY 90 days diltiazem HCl CD 120 mg PO DAILY 90 days meclizine 25 mg PO BID-TID 90 days naphazoline-pheniramine 0.025-0.3 % (Naphcon-A) 1 drp ophthalmic (eye) BID-QID PRN 30 days pantoprazole (Protonix) 40 mg PO DAILY rosuvastatin 10 mg PO DAILY 90 days warfarin See Protocol Per protocol, up to 2 tabs daily orally daily; 30 days wheat dextrin (Benefiber Healthy Shape) grams PO Tobacco use date assessed: 04/10/24 Dental Screening Dental Screen Date: 04/10/24 HPI bump on left ear HPI Details Patient is 68-year-old Bruneian-speaking female with past medical history of anemia, asthma, depression, diverticulosis of colon, dyspepsia, esophageal cancer, gangrene is cholecystitis, GERD, heart disease, hyperlipidemia, hemorrhoids, ischemic hepatitis, rheumatic heart disease, mitral regurgitation, mitral stenosis presented to gastroenterology department for the evaluation of Rodriguez's esophagus on 05/09/2024 [facility] She was diagnosed with Rodrgiuez's esophagus without dysplasia through EGD in 2018 Her last EGD was in 2019 Patient is established with Dr. Wilson Gastroenterology Patient presented to [facility] 17 of May secondary to very high blood pressure which was above 200 systolic as per her son I do not have all the notes available. Limited information is available as noted below Notes reviewed hemoglobin was 12.0 initially which went down to 11.3 later most likely secondary to IV fluids Electrolytes within normal limit Creatinine 0.50 GFR 90 LFTs within normal limit LDL 121 Magnesium was 1.7 which was repleted EKG showed normal sinus rhythm when compared to EKG of 05/15/2024 no significant changes were seen No STT wave changes Troponin were elevated to 116 and increase to 314 then came down to 285 Echocardiogram showed normal left ventricular cavity size Ejection fraction 50-55% Normal right ventricular size Mechanical valve mitral in position Left atrium severely dilated Chest x-ray showed persistent distended intrathoracic stomach status post gastric pull through procedure is suggestive of pyloric obstruction Patient had diagnosis of non ST-elevation myocardial infarction with elevated troponin was admitted 2 days And was treated for uncontrolled hypertension Once stabilized she was discharged home, she has cardiology appointment coming up on 05/24/2024 She is eating okay there is no nausea vomiting abdominal pain There is some questionable history of abnormal thyroid ultrasound I do not have any imaging on that We will reach out to [facility] imaging department and get the report, as patient son is requesting a follow-up ultrasound thyroid She came in today with a problem, swelling right side of her face close to ear Which is nontender and was noticed few days ago On examination it seems as if she has slight parotitis without pain I am not treating her with antibiotic, patient was instructed to suck on sour drops and see if that helps resolve the problem If pain starts she is to let me know - Anticipation of a gastrointestinal examination that includes both EGD and colonoscopy once hypertension is controlled and cardiovascular clearance is obtained. Problem List - HypertensionStill elevated but much improved - Parotid Gland Swelling right-sided - Thyroid Nodule (incidental finding on imaging) imaging not available at this time - Gastroesophageal Reflux Disease (GERD) - Gastric Procedure Pending (EGD and colonoscopy) - Chest Pain (Evaluation in the Emergency Room) resolved - left atrial enlargement - artificial mitral valve - Rodriguez's esophagus - allergies - chronic vertigo - chronic GERD - lipid disorder [place] of Care - Biomass Plant Manager (appointment scheduled for further evaluation of heart health) - Cns (Dr. Wilson for scheduled EGD and colonoscopy) - Radiology for follow-up thyroid ultrasound Patient Instructions - Continue monitoring blood pressure at home regularly. - Attend cardiology appointment on May 24 for heart evaluation and clearance for upcoming gastrointestinal procedures. - Encourage sucking on sour candies to potentially relieve parotid gland swelling. - Report any new or worsening symptoms, such as pain in the parotid region or high blood pressure episodes. Review of Systems General: No fever no chills neurological: No headaches no dizziness ear nose throat: No sore throat no hearing difficulty no ear pain cardiovascular: No syncope, no chest pain, no palpitations gastrointestinal: No nausea vomiting or diarrhea endocrine: No polyuria polydipsia no heat intolerance genitourinary: No dysuria skin: No new complaints Physical Exam general: No acute distress HEENT: No acute findings, noted parotid gland swelling, non-painful right-sided neck: Supple respiratory system: Able to talk in full sentences, no audible wheeze no stridor cardiovascular: S1-S2 regular in rate and rhythm, clicking of artificial mitral valve present gastrointestinal: No pain extremities: No new findings MATERIALS AND PROCESSES MANAGER: Alert awake oriented x3 motor sensory intact skin: Normal turgor PFSH Medical History GERD (gastroesophageal reflux disease) HTN (hypertension) Depression CVA (cerebral vascular accident) Esophageal cancer Rheumatic heart disease Current use of anticoagulant therapy Acid reflux Hx of hyperlipidemia Surgical History History of mitral valve replacement H/O colonoscopy History of cholecystectomy Family History Father Throat cancer Other Mental health disorder Substance use disorder Social History Housing: Apartment Alcohol intake: current Patient Tobacco Use Status: Never used Tobacco e-Cigarette/Vaping Use: Never Used service: No Current occupational status: retired Sexual orientation: Straight/Heterosexual Gender identity: Female Cognitive needs: No Hearing needs: No Vision needs: Yes Questionnaire PHQ-9 Over the last 2 weeks, how often have you been bothered by any of the following problems? 1. Little interest or pleasure in doing things: several days 2. Feeling down, depressed, or hopeless: not at all [id number] - PHQ-9 Billing: Patient declined-do not bill Source: Developed by Drs. Wilberto Wilson, Radha Page, Rufino Anand and colleagues, with an educational navid from [employer]. Thrive Questionnaire Date Thrive assessed: 04/10/24 I am a: Patient What is your living situation today?: I have a steady place to live Within the past 12 months, did the food you bought not last and you didn't have the money to get more?: Never true Within the past 12 months, did you worry whether your food would run out before you got money to buy more?: Never true Do you have trouble paying for medicines?: No Do you have trouble getting transportation to medical appointments?: I choose not to answer this question Do you have trouble paying your heating and electricity bill?: I choose not to answer this question Do you have trouble taking care of your child, family member or friend?: I choose not to answer this question Do you have trouble with day-to-day activities such as bathing, preparing meals, shopping, managing finances, etc.?: I choose not to answer this question Are you currently unemployed and looking for a job?: No Are you interested in more education?: No Please select the resources that you would like help with: None Currently or been in a relationship where the following occur: No concerns reported THRIVE Score: 0 IVON-7 AMB Questionnaire IVON-7 Date IVON - 7 assessed: 04/10/24 Source: Developed by Drs. Wilberto Wilson, Radha Page, Rufino Anand and colleagues, with an educational navid from [employer]. Physical exam (Primary Care) Vital Signs: Last Vital Signs Pulse 65 05/21/24 11:55 BP 148/60 H 05/21/24 11:55 Pulse Ox 97 05/21/24 11:55 Oxygen Delivery Method Room Air 05/21/24 11:55 BMI result Body Mass Index 24.6 Tobacco/Smoking Status: Tobacco use Status Tobacco use date assessed 04/10/24 05/21/24 11:56 Patient Tobacco Use Status Never used Tobacco 05/21/24 11:56 e-Cigarette/Vaping Use Never Used 05/21/24 11:56 Thrive Assessment: Date of Thrive Assessment Date Thrive assessed 04/10/24 05/21/24 11:56 Currently or been in a relationship where the following occur: No concerns reported Coding Level of Care Code Est Pt Level 5 (75853) Diagnoses Hospital discharge follow-up Z09 History of non-ST elevation myocardial infarction (NSTEMI) I25.2 Acute parotitis K11.21 History of esophageal cancer Z85.01 Status post mitral valve replacement Z95.2 Lipid disorder E78.9 Hypertension, essential I10 Environmental allergies Z91.09 Gastroesophageal reflux disease without esophagitis K21.9 Esophagitis presence: without esophagitis Left atrial enlargement I51.7 Rodriguez's esophagus with dysplasia K22.719 Rodriguez's esophagus type: with dysplasia of unspecified degree Language barrier Z60.3; Z75.8 Abnormal imaging of thyroid R93.89 Time Spent (min) 40 Comment chart reviewed /hospital notes reviewed/[id number] with patient and son /coordination Assessment & Plan Assessment & Plan (1) Hospital discharge follow-up: Code(s): Z09 - Encounter for follow-up examination after completed treatment for conditions other than malignant neoplasm Category: Medical (2) History of non-ST elevation myocardial infarction (NSTEMI): Code(s): I25.2 - Old myocardial infarction Category: Medical (3) Acute parotitis: Code(s): K11.21 - Acute sialoadenitis Category: Medical (4) History of esophageal cancer: Code(s): Z85.01 - Personal history of malignant neoplasm of esophagus Category: Medical (5) Status post mitral valve replacement: Code(s): Z95.2 - Presence of prosthetic heart valve Category: Surgical (6) Lipid disorder: Code(s): E78.9 - Disorder of lipoprotein metabolism, unspecified Category: Medical (7) Hypertension, essential: Code(s): I10 - Essential (primary) hypertension Category: Medical (8) Environmental allergies: Code(s): Z91.09 - Other allergy status, other than to drugs and biological substances Category: Medical (9) GERD (gastroesophageal reflux disease): Code(s): K21.9 - Gastro-esophageal reflux disease without esophagitis Category: Medical Qualifiers: Esophagitis presence: without esophagitis Qualified Code(s): K21.9 - Gastro-esophageal reflux disease without esophagitis (10) Left atrial enlargement: Code(s): I51.7 - Cardiomegaly Category: Medical (11) Barretts esophagus: Code(s): K22.70 - 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 Category: Medical Qualifiers: Rodriguez's esophagus type: with dysplasia of unspecified degree Qualified Code(s): K22.719 - Rodriguez's esophagus with dysplasia, unspecified (12) Language barrier: Code(s): Z60.3 - Acculturation difficulty; Z75.8 - Other problems related to medical facilities and other health care Category: Social Hx (13) Abnormal imaging of thyroid: Code(s): R93.89 - Abnormal findings on diagnostic imaging of other specified body structures Category: Medical Plan Patient is 68-year-old Bruneian-speaking female with past medical history of anemia, asthma, depression, diverticulosis of colon, dyspepsia, esophageal cancer, gangrene is cholecystitis, GERD, heart disease, hyperlipidemia, hemorrhoids, ischemic hepatitis, rheumatic heart disease, mitral regurgitation, mitral stenosis presented to gastroenterology department for the evaluation of Rodriguez's esophagus on 05/09/2024 [facility] She was diagnosed with 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 through EGD in 2018 Her last EGD was in 2019 Patient is established with Dr. Wilson Gastroenterology Patient presented to [facility] 17 of May secondary to very high blood pressure which was above 200 systolic as per her son I do not have all the notes available. Limited information is available as noted below Notes reviewed hemoglobin was 12.0 initially which went down to 11.3 later most likely secondary to IV fluids Electrolytes within normal limit Creatinine 0.50 GFR 90 LFTs within normal limit LDL 121 Magnesium was 1.7 which was repleted EKG showed normal sinus rhythm when compared to EKG of 05/15/2024 no significant changes were seen No STT wave changes Troponin were elevated to 116 and increase to 314 then came down to 285 Echocardiogram showed normal left ventricular cavity size Ejection fraction 50-55% Normal right ventricular size Mechanical valve mitral in position Left atrium severely dilated Chest x-ray showed persistent distended intrathoracic stomach status post gastric pull through procedure is suggestive of pyloric obstruction Patient had diagnosis of non ST-elevation myocardial infarction with elevated troponin was admitted 2 days And was treated for uncontrolled hypertension Once stabilized she was discharged home, she has cardiology appointment coming up on 05/24/2024 She is eating okay there is no nausea vomiting abdominal pain There is some questionable history of abnormal thyroid ultrasound I do not have any imaging on that We will reach out to [facility] imaging department and get the report, as patient son is requesting a follow-up ultrasound thyroid She came in today with a problem, swelling right side of her face close to ear Which is nontender and was noticed few days ago On examination it seems as if she has slight parotitis without pain I am not treating her with antibiotic, patient was instructed to suck on sour drops and see if that helps resolve the problem If pain starts she is to let me know - Anticipation of a gastrointestinal examination that includes both EGD and colonoscopy once hypertension is controlled and cardiovascular clearance is obtained. Problem List - HypertensionStill elevated but much improved - Parotid Gland Swelling right-sided - Thyroid Nodule (incidental finding on imaging) imaging not available at this time - Gastroesophageal Reflux Disease (GERD) - Gastric Procedure Pending (EGD and colonoscopy) - Chest Pain (Evaluation in the Emergency Room) resolved - left atrial enlargement - artificial mitral valve - Rodriguez's esophagus - allergies - chronic vertigo - chronic GERD - lipid disorder [place] of Care - Biomass Plant Manager (appointment scheduled for further evaluation of heart health) - Cns (Dr. Wilson for scheduled EGD and colonoscopy) - Radiology for follow-up thyroid ultrasound Patient Instructions - Continue monitoring blood pressure at home regularly. - Attend cardiology appointment on May 24 for heart evaluation and clearance for upcoming gastrointestinal procedures. - Encourage sucking on sour candies to potentially relieve parotid gland swelling. - Report any new or worsening symptoms, such as pain in the parotid region or high blood pressure episodes.
--- OUTSIDE RECORDS SUMMARY | 2024-05-21 14:10 | XMS_ITS | Encounter Summary ---
Author Organization [facility] Address [address] [place] [address] Care Team Providers Care Development System Efficiency Manager Name Role Phone Callum Muñoz MD Primary Care Provider [phone] Reason for Visit * Reason Onset Date Comments APPOINTMENT 04/24/2024 Encounter Details Date Type Department Care Team ([facility] st Contact Info) Description 04/24/2024 Telephone Gastroenterology - [place] [address] [facility] [address] [facility] [address] [place] [address] Jacobo Pope MD [address] [facility] [address] [place] [address] APPOINTMENT Social History Tobacco Use Types Packs/Day Years [...] Orientation Straight 03/02/2024 12 :24 AM EST documented as of this encounter Progress Notes * Fatoumata Dickinson - 04/24/2024 12:36 PM EST Records received from [facility], consult for epigastric pain, GERD, ? Colonoscopy. Left message for patient & placed call log in folder. Records scanned. documented in this encounter Plan of Treatment Upcoming Encounters Date Type Department Care Team (Late st Contact Info) Description 06/12/2024 12:30 PM EDT Appointment [facility] [address] [place] [phone] Jacobo Pope MD [address] [facility] [address] [place] [address] documented as of this encounter Visit Diagnoses Not on filedocumented in this encounter Care Teams Development System Efficiency Manager Relationship Specialty Start Date End Date Callum Muñoz MD [address] [facility] [place] [phone] PCP - General 03/17/22 documented as of this encounter
--- OUTSIDE RECORDS SUMMARY | 2024-05-21 14:11 | XMS_ITS | Data Portability ---
Author Organization [address] [facility] Address [address] [place] [address] Care Team Providers Care Audit Clerks Supervisor Name Role Phone HIM PARRIS OTHER Assessment Encounter Date Assessment Date Assessment LastModified by Organization Details LastModified Time 06/16/2021 06/16/2021 This 66-year-old female called [facility] complaining of a sore throat and a cough productive of yellow sputum. She hasn't had COVID-19 vaccines. Her rapid COVID-19 and flu swabs were negative. I initiated treatment with Levaquin 500 mg daily for 5 days and Robitussin DM prn cough. She will follow up with her PCP. The patient agreed with this plan. 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 Functional Status None recorded. Mental Status None recorded. Family History Nothing Reported. Medical History No medical history recorded. Gynecological HistoryNo gynecological history recorded. Obstetrics History GPAL:G 0 P 0 0 0 0 Past Encounters Encounter ID Performer Location Encounter Start Date Encounter Closed Date Diagnosis/Indication Diagnosis SNOMED-CT Code Diagnosis ICD10 Code Diagnosis Note [id number] Patrick Reyez MD [facility] [address] [place] [phone] 06/16/2021 18:21:31 06/16/2021 18:26:55 Health Concerns Section Related Observation LastModified by Organization Detai ls LastModified Time None Recorded Concern Status LastModified by Organization Details LastModified Time None Recorded Advance Directives Directive None Recorded Payers Encounter Date Sequence Insurance Name Policy Number Policy Schulz Covered Member ID Schulz Member ID Guarantor Name 06/16/2021 1 [facility] - DOS PRIOR TO 2022 - DUAL ELIGIBLE (MEDICARE REPLACEMENT/ADV ANTAGE - HMO) Sheela Lucas [id number] Sheela Zavala Notes Date Note Type Note Provider Name and Address Organization Details Recorded Time 06/16/2021 text/html 66 y/o Uruguayan speaking female, hx: long-term use of anti-coagulant treatment, anxiety, unsteady gait, arthritis, TAYLOR, GERD, called [facility], c/o cough and cold sx's x 3days. C/o headache and sore throat, yellow colored sputum. Member denies having contact with COVID positive or Flu positive person. Member taking tylenol and cough drops with some effect. Patrick Reyez MD [address] [facility],[address], [place], [address], [employer] 06/16/2021 18:26:53 OBGyn Episode No OBEpisode recorded.
--- OUTSIDE RECORDS SUMMARY | 2024-05-21 14:11 | XMS_ITS | Encounter Summary ---
Author Organization [facility] Address [address] [place] [address] Care Team Providers Care Air Crew Supervisor Name Role Phone Callum Muñoz MD Primary Care Provider [phone] Reason for Visit * Reason Comments Hypertension * Auth/Cert (Routine) Specialty Diagnoses / Procedures Referred By Contac t Referred To Contact Diagnoses Elevated troponin NSTEMI (non-ST elevated myocardial infarction) ([facility]/HCC) History of esophageal cancer 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 History of colon polyps Procedures [facility] IP/OBS CARE INITIAL MODERATE LEVEL PER DAY Jl Mzea MD [address] [place] [phone] Phone: tel: fax: [facility] [address] [place] [phone] Phone: tel: Referral ID Status Reason Start Date Expiration Date Visits Re quested Visits Authorized [id number] 1 1 Encounter Details Date Type Department Care Team (Late st Contact Info) Description 05/16/2024 12:51 AM EDT - 05/17/2024 4:28 PM EDT Hospital Encounter [facility] [address] [place] [phone] Jl Meza MD [address] [place] [phone] Jaxson Lawler MD [address] [place] [phone] Adam Anderson MD [address] [place] [phone] Garcia Chowdhury MD [address] [place] [phone] NSTEMI (non-ST elevated myocardial infarction) (CMS/HCC) (Primary Dx); Elevated troponin; 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; History of colon polyps; History of esophageal cancer Discharge Disposition: Home or Self Care Social History Tobacco Use Types Packs/Day Years Used Date Smoking Tobacco: Former Smokeless Tobacco: Never Alcohol Use Standard Drinks/Week Comments Yes 0 (1 standard drink = 0.6 oz pur e alcohol) Interpersonal Safety Answer Date Record ed Physical Abuse 05/16/2024 Verbal Abuse 05/16/2024 Comments Unknown Sex and Gender Information Value Date Recorded Sex Assigned at Female 03/02/2024 12:24 AM EST Legal Sex Female 10:54 PM EST Gender Identity Female 03/02/2024 12:24 AM EST Sexual Orientation Straight 03/02/2024 12 :24 AM EST documented as of this encounter Last Filed Vital Signs Vital Sign Reading Time Taken Comments Blood Pressure 123/63 05/17/2024 2:36 PM EDT Pulse 55 05/17/2024 2:36 PM EDT Temperature 36.4 ??C (97.5 ??F) 05/17/2024 2:36 PM ED T Respiratory Rate 20 05/17/2024 2:36 PM EDT Oxygen Saturation 99% 05/17/2024 2:36 PM EDT Inhaled Oxygen Concentration - - Weight 65.1 kg (143 lb 8 oz) 05/16/2024 3:20 AM EDT Height 154.9 cm (5' 1 ) 05/16/2024 1:13 AM EDT Body Mass Index 27.11 05/16/2024 1:13 AM EDT documented in this encounter Functional Status * Are you deaf or do you have serious difficulty hearing? Answer Date of Assessment Author No 05/16/2024 1:14 AM EDT Emely Alamo RN * Are you blind or do you have serious difficulty seeing, even when wearing glasses? Answer Date of Assessment Author No 05/16/2024 1:14 AM Emely Norman RN * Do you have serious difficulty walking or climbing stairs? Answer Date of Assessment Author No 05/16/2024 1:14 AM Emely Norman RN * Do you have serious difficulty dressing or bathing? Answer Date of Assessment Author No 05/16/2024 1:14 AM Emely Norman RN * Because of a physical, mental, or emotional condition, do you have serious difficulty doing errandsalone such as visiting the doctor? Answer Date of Assessment Author No 05/16/2024 1:14 AM Emely Norman RN documented as of this encounter Mental Status * Because of a physical, mental, or emotional condition, do you have serious difficulty concentrating, remembering, or making decisions? (5 years old or older) Answer Entry Date Author No 05/16/2024 1:14 AM Emely Norman RN documented in this encounter Discharge Summaries * JEY Gallardo - 05/17/2024 4:02 PM EDT Images from the original note were not included. [facility] DISCHARGE SUMMARY Patient Information Sheela Zavala : 1955 [68 y.o.] Admitting Provider Jl Meza MD Discharge Provider JEY Gallardo, Garcia Chowdhury MD Primary Care Physician Callum Muñoz MD Admission Date 05/16/2024 Discharge Date 05/17/2024 Discharge Destination: Home Code Status at Discharge: Full Code - Default Hospital Course Summary Cambodian-speaking medical services assistant was used for this encounter Hypertension Uncontrolled blood pressure Possible hypertensive emergency Possible med noncompliance 68-year-old Cambodian-speaking female past medical history of esophageal cancer status postresection,hypertension, hyperlipidemia, mitral valve disease status post replacement on warfarin who presented to the ED for high blood pressure in the 200s. She denied any chest pain, palpitation, nausea, vomiting, diaphoresis. She also reported to be compliant with meds. On presentation, her blood pressure was high 178/86. EKG was negative for ST change or T wave inversion. Troponin was high 285, 314, 116. Chest x-ray was negative. Patient was evaluated by cardiothoracic physiotherapist. She had a TTE which which was negative for acute finding. Patient underwent nuclear stress test which also was negative for signs of ischemia. She was treated with home diltiazem. Surprisingly, her blood pressure improved and was 123/63. Follow-up with PCP. Increased troponin As above, patient presented to the ED for increased blood pressure. She denied any chest pain. During her observation, she was chest pain-free. Initial EKG was negative for ST change or T wave inversion. She had mild troponin elevation 285, 314, 116. BNP was normal. Chest x-ray was negative. Patient was evaluated by cardiothoracic physiotherapist. SHe underwent a TTE and nuclear stress test which were negative foracute finding. Suspecting increased troponin was secondary to high blood pressure. Hypomagnesemia On admission, magnesium was low at 1.7 which was found prior to her discharge. She was requested towait for magnesium infusion however she preferred p.o. magnesium at home. Magnesium was sent to herpharmacy. Mitral valve replacement. On warfarin. Procedures done: Regadenoson (Lexiscan) nuclear stress test with myocardial perfusion Final Result Transthoracic echocardiogram (TTE) complete with PRN contrast, bubble, strain, and 3D order panel Final Result XR Chest 2 Views ED Interpretation No infiltrate or effusion, stomach in chest Final Result Persistently distended intrathoracic stomach status post gastric pull-through procedure is suggestive of pyloric obstruction. -------- FINAL REPORT -------- Dictated By: Audra Burgos Dictated Date: 05/16/2024 10:03 ET Assigned Physician: Audra Burgos Reviewed and Electronically Signed By: Audra Burgos Signed Date: 05/16/2024 10:07 ET Workstation ID: [id number] Transcribed By: Self Edit Transcribed Date: 05/16/2024 10:03 ET Condition upon discharge Visit Vitals BP 123/63 (BP Location: Left arm, Patient Position: Lying) Pulse 55 Temp 36.4 ??C (97.5 ??F) (Temporal) Resp 20 Temp (24hrs), Av.2 ??C (97.2 ??F), Min:36.1 ??C (97 ??F), Max:36.4 ??C (97.5 ??F) Body mass index is 27.11 kg/m??. No results found for: PTWT , PTHT GEN: Alert, oriented. No distress. HEENT: Atraumatic, symmetric, PERRLA. Neck: Supple, nontender, no range of motion limitation. Lungs: Clear, no accessory muscle use. Heart: Regular, no murmur. Abdomen: Not distended, soft, nontender. Bowel sounds present. Neuro: Alert, oriented. Cranial nerves II to XII grossly intact. No facial droop. No motor deficit,no sensory deficit. Psych: Cooperative, calm. This note was written using [employer] speech recognition software which is prone to typographical errors. If questions occur please do not hesitate to call this provider. Follow-Up Instructions and Recommendations No follow-up provider specified. No discharge procedures on file. There are no outpatient Patient Instructions on file for this admission. Discharge Medications Your medication list CONTINUE taking these medications Instructions Last Dose Given Next Dose Due dilTIAZem CD 120 mg 24 hr capsule Commonly known as: CARDIZEM CD Take 1 capsule (120 mg total) by mouth 1 (one) time each day. meclizine 25 mg tablet Commonly known as: ANTIVERT 1 POR V A ORAL 2-3 TIMES DAILY CUANDO SEA NECESARIO FOR MOTION SICKNESS FOR 90 DAYS omeprazole [address] capsule Commonly known as: PriLOSEC Take 1 capsule (40 mg total) by mouth 1 (one) time each day. Do not crush or chew. rosuvastatin 10 mg tablet Commonly known as: CRESTOR [place] 1 tableta (10 mg en total) por v??a oral 1 (rajinder) vez al d??a. (Take 1 tablet (10 mg total) by mouth 1 (one) time each day.) warfarin 4 mg tablet Commonly known as: COUMADIN Take 1-2 tablets (4-8 mg total) by mouth 1 (one) time each day with dinner. ASK your doctor about these medications Instructions Last Dose Given Next Dose Due escitalopram 20 mg tablet Commonly known as: LEXAPRO [place] 1 tableta (20 mg en total) por v??a oral 1 (rajinder) vez al d??a. (Take 1 tablet (20 mg total) by mouth 1 (one) time each day.) losartan 25 mg tablet Commonly known as: COZAAR [place] 1 tableta (25 mg en total) por v??a oral 1 (rajidner) vez al d??a. (Take 1 tablet (25 mg total) by mouth 1 (one) time each day.) Case discussed with Dr Chowdhury Time spent: 60 min Cosigned by Garcia Chowdhury MD at 05/18/2024 2:21 PM EDT Associated attestation - Garcia Chowdhury MD - 05/18/2024 2:21 PM EDT This is a split/shared visit with JEY Gallardo. I personally performed the medical decision making (MDM) for the care of this patient on 05/17/2024 as documented below I agree with midlevel provider's care. I have seen and examined patient and reviewed her chart. Elevated troponin likely secondary to uncontrolled HTN as ACS was negative, stress test was negative. TTE showed preserved EF 50-55% and mechanical MV with normal function and position, mobile echodensity suspected to be mobile chordae postsurgery. Garcia Chowdhury MD 05/18/24 2:15 PM EDT documented in this encounter Discharge Instructions * Discharge Instructions* JEY Gallardo - 05/17/2024 4:01 PM EDT Follow up with PCP documented in this encounter Medications at Time of Discharge dilTIAZem CD (CARDIZEM CD) 120 mg 24 hr capsule Take 1 capsule (120 mg total) by mouth 1 (one) time each day. escitalopram (LEXAPRO) 20 mg tablet Take 1 tablet (20 mg total) by mouth 1 (one) time each day. losartan (COZAAR) 25 mg tablet Take 1 tablet (25 mg total) by mouth 1 (one) time each day. magnesium glycinate 100 mg tablet Take 100 mg by mouth 1 (one) time each day for 5 days. 5 tablet 05/17/2024 5 meclizine (ANTIVERT) 25 mg tablet 1 POR V A ORAL 2-3 TIMES DAILY CUANDO SEA NECESARIO FOR MOTION SICKNESS FOR 90 DAYS 04/10/2024 omeprazole (PriLOSEC) [address] capsule Take 1 capsule (40 mg total) by mouth 1 (one) time each day. Do not crush or chew. 90 each 3 05/09/2024 6 rosuvastatin (CRESTOR) 10 mg tablet Take 1 tablet (10 mg total) by mouth 1 (one) time each day. warfarin (COUMADIN) 4 mg tablet Take 1-2 tablets (4-8 mg total) by mouth 1 (one) time each day with dinner. 06/23/2023 documented as of this encounter Ordered Prescriptions Prescription Sig Dispense Quantity Refills Last Filled Start Date End Date magnesium glycinate 100 mg tablet Take 100 mg by mouth 1 (one) time each day for 5 days. 5 tablet 05/17/2024 05/22/2024 documented in this encounter Discharge Disposition Disposition Code Departure Means Destination Comment s Home or Self Care Walk-out Home documented in this encounter Progress Notes * Sujata Matos RN - 05/17/2024 3:16 PM EDT 05/17/24 1516 Initial Transition Plan Initial Transition Plan Home Back up Transition Plan Back up Transition plan Home Discharge Planning Living Arrangements Children Type of Residence Private residence Assistive Devices Dentures upper;Eyeglasses Support Systems Children;Immediate family Medication Coverage Has Med Coverage Under Insurance Plan Yes Medication Affordability No concerns related to payment for meds Anticipated Discharge Needs Discipline following for SNF placement Pictures Editor Informed Choice Informed Choice Given? Yes Transportation Transportation at discharge Family What day is the transport expected? 05/17/24 Final Discharge Disposition Home or Self Care * REDDY Jules - 05/17/2024 1:12 PM EDT Images from the original note were not included. Speech Language Pathology [facility] 3D DESIGNER BEDSIDE SWALLOW EVALUATION NAME: Sheela Zavala DATE OF : 1955 ROOM: [address] [place] [address] RECOMMENDATIONS Risk for Aspiration: None Diet Solids Recommendation: IDDSI Level 7 Regular Diet Liquids Recommendation: Thin liquids Liquid Administration Via: Cup, Straw Compensatory Swallowing Strategies: Upright as possible for all oral intake Pt ID by: Self, Full Name and 3D DESIGNER Received On: 05/17/24 President Financial Institution Required: [employer] #[id number] TIME IN: 1200 TIME OUT: 1230 TOTAL TIME: 30 min SUBJECTIVE Chart reviewed and patient cleared by RN for swallow evaluation. Patient seen at bedside in room. Pt familiar to 3D DESIGNER from previous admission. Denies any difficulty swallowing. Patient goal stated: to get home and get stronger. SWALLOW SCREEN: Principal Problem: NSTEMI (non-ST elevated myocardial infarction) (CMS/HCC) Date Noted: 05/16/2024 Active Problems: Benign essential HTN Date Noted: 03/02/2024 H/O mitral valve replacement with mechanical valve Date Noted: 03/02/2024 Resolved Problems: * No resolved hospital problems. * Elevated troponin [R79.89] NSTEMI (non-ST elevated myocardial infarction) (CMS/HCC) [I21.4] History of esophageal cancer [Z85.01] 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 [K22.70] History of colon polyps [Z86.0100] No admission procedures for hospital encounter. PAST MEDICAL HISTORY: Past Medical History: Diagnosis Date Anemia DX:Anemia Asthma 06/13/2018 DX:Asthma Rodriguez's esophagus 06/13/2018 DX:Rodriguez's esophagus Colon polyp 04/05/2018 DX:Colon polyp; COMMENT: hyperplastic and inflammatory Depression DX:Depression Diverticulosis of colon 06/21/2018 DX:Diverticulosis of colon; COMMENT: Of ascending and descending colon Dysthymia 06/13/2018 DX:Dysthymia Esophageal cancer (CMS/HCC) DX:Esophageal cancer (HCC) Eye disease DX:Eye disease Gangrenous cholecystitis 06/13/2018 DX:Gangrenous cholecystitis GERD (gastroesophageal reflux disease) DX:GERD (gastroesophageal reflux disease) GERD with esophagitis 06/13/2018 DX:GERD with esophagitis Heart disease DX:Heart disease Hemorrhoids DX:Hemorrhoids History of esophageal cancer 03/23/2011 DX:History of esophageal cancer; COMMENT: S/p resection 2011 Hyperlipidemia 06/13/2018 DX:Hyperlipidemia Internal and external hemorrhoids without complication 06/21/2018 DX:Internal and external hemorrhoids without complication Ischemic hepatitis 06/13/2018 DX:Ischemic hepatitis Mitral regurgitation and mitral stenosis 06/13/2018 DX:Mitral regurgitation and mitral stenosis; COMMENT: S/p st brian mitral valve Pre-diabetes 06/13/2018 DX:Pre-diabetes Rheumatic heart disease 06/13/2018 DX:Rheumatic heart disease PAST SURGICAL HISTORY: Past Surgical History: Procedure Laterality Date CARDIAC VALVE SURGERY PROCEDURE:CARDIAC VALVE SURGERY COLONOSCOPY 04/05/2017 PROCEDURE: OUTSIDE COLONOSCOPY; COMMENT: diverticulosis of asc/desc colon, 5 mm inflammatory polyp,int/ext hemorrhoids OTHER SURGICAL HISTORY 2011 PROCEDURE: ---- OTHER ----; COMMENT: esophageal resection OTHER SURGICAL HISTORY 04/05/2017 PROCEDURE: OUTSIDE ENDOSCOPY; COMMENT: grade D esophagitis UPPER GASTROINTESTINAL ENDOSCOPY 08/08/2018 PROCEDURE: [facility] UPPER GI ENDOSCOPY PERFORMED; COMMENT: severe erosive esophagitis PRIOR LEVEL OF FUNCTIONING: Previously on Easy to chew solids and thin liquids. At home eats regular food. IMAGING RESULTS: MRI Brain No results found for this or any previous visit. CT Head No results found for this or any previous visit. Chest Portable Results for orders placed during the hospital encounter of 03/02/24 XR Chest 1 View Narrative EXAMINATION: CHEST CLINICAL INFORMATION: Dysphagia The patient [...] the left base. There is no pneumothorax. Impression Previous cardiac surgery with prosthetic mitral valve. Suspect previous esophagectomy. Worsening aeration of the left lower chest. The patient declined swallowing study -------- FINAL REPORT -------- Dictated By: Parish Spaulding Dictated Date: 03/06/2024 09:21 ET Assigned Physician: Parish Spaulding Reviewed and Electronically Signed By: Parish Spaulding Signed Date: 03/06/2024 09:23 ET Workstation ID: [id number] Transcribed By: Self Edit Transcribed Date: 03/06/2024 09:21 ET Chest 2 View Results for orders placed during the hospital encounter of 05/16/24 XR Chest 2 Views Narrative INDICATION: Chest pain FINDINGS: Two views of the chest were obtained. Compared to multiple prior studies most recent 2024. Lung goodwin are clear. Cardiomediastinal silhouette is normal in size and shape. Midline sternotomy with aortic valve replacement. Bony structures are within normal limits for the patient's age. Distended intrathoracic stomach with debris. History of prior esophagectomy with gastric pull through procedure. Findings suggest pyloric obstruction. Impression Persistently distended intrathoracic stomach status post gastric pull-through procedure is suggestive of pyloric obstruction. -------- FINAL REPORT -------- Dictated By: Audra Burgos Dictated Date: 05/16/2024 10:03 ET Assigned Physician: Audra Burgos Reviewed and Electronically Signed By: Audra Burgos Signed Date: 05/16/2024 10:07 ET Workstation ID: [id number] Transcribed By: Self Edit Transcribed Date: 05/16/2024 10:[address] Results for orders placed during the hospital encounter of 03/02/24 CT Angio Chest wo and/or w Contrast Narrative CT angiography chest with contrast. 3D Postprocessing. [...] Calcified granulomas in the liver. Colonic diverticulosis. Impression 1. No evidence of PE. 2. Bilateral atelectasis with multifocal dense consolidations bilaterally, pronounced in the left lower lobe. Aspiration or pneumonia are considered. This document has been electronically signed by: Giuliano Aguirre MD on 03/02/2024 05:20:14 ALLERGIES: Allergies Allergen Reactions Penicillin Unknown OBJECTIVE OXYGEN THERAPY: PAIN ASSESSMENT: TRACHEOSTOMY: DYSPHAGIA SYMPTOMS REPORTED: Denies any swallowing issues FEEDING METHOD: To Be Assessed ENDURANCE DURING MEALS: To Be Assessed MENTAL STATUS: Alert Responsive Cooperative SWALLOW BASELINE ASSESSMENT: Respiratory Status: Room air Behavior/Cognition: Alert, Cooperative, Pleasant mood Dentition: Adequate, Some missing teeth Patient Positioning: Upright in bed Baseline Comments: Pt reports eating regular food at home, denies any difficulty swallowing CURRENT DIET: Dietary Orders (From admission, onward) Start Ordered 05/17/[address] [facility]; General, Cardiac; Regular; Sodium 2 gm Restriction Diet effective now Question Answer Comment Location [facility] Diet Type (req) General Diet Type (req) Cardiac General Diet Regular Diet Type (cardiac) Sodium 2 gm Restriction 05/17/24 1155 MOTOR SPEECH: Labial ROM: Within Functional Limits Labial Symmetry: Within Functional Limits Labial Strength: Within Functional Limits Labial Sensation: Within Functional Limits Lingual Appearance: [place] Lingual ROM: Within Functional Limits Lingual Strength: Within Functional Limits Facial Symmetry: Within Functional Limits CONSISTENCIES ASSESSED: Yes Thin Presentation: Cup, Straw Oral: Within functional limits Pharyngeal: Within Functional Limits Amount: 5 Solid/Regular Presentation: Self Fed, Bite Oral: Within functional limits Pharyngeal: Within Functional Limits Amount: 5 COGNITION: 3D DESIGNER ASSESSMENT: Dysphagia Diagnosis: Within Functional Limits Evaluation/Treatment Tolerance: Patient tolerated treatment well Comments: No s/s dysphagia. No c/o globus, as noted during previous admission. Medical Staff Made Aware: Yes PLAN OF CARE 3D DESIGNER PLAN 3D DESIGNER Plan: No skilled 3D DESIGNER No Skilled 3D DESIGNER: Independent with swallowing, No acute 3D DESIGNER goals identified 3D DESIGNER - Evaluation Status: Complete Diet Recommendations: Regular/thin liquids DISCHARGE RECOMMENDATIONS No Speech-Language Pathology (3D DESIGNER) services/needs at next level of care. EDUCATION Education Documentation Modified Diet Training, taught by REDDY Jules at 05/17/2024 1:12 PM. Learner: Patient Readiness: Acceptance Method: Explanation Response: Verbalizes Understanding, Demonstrated Understanding Education Comments No comments found. GOALS Encounter Problems Encounter Problems (Active) There are no active problems. Encounter Problems (Resolved) There are no resolved problems. * Gildardo Mccabe MD - 05/17/2024 12:27 PM EDT Images from the original note were not included. [facility]- Cardiology Follow-up Note PATIENT NAME: Sheela Zavala ([id number]) ASSESSMENT & PLAN Principal Problem: NSTEMI (non-ST elevated myocardial infarction) (CMS/HCC) Active Problems: Benign essential HTN H/O mitral valve replacement with mechanical valve Hypertension Patient's blood pressure seems to be fairly well-controlled not sure why it is an issue at home andalso seems to be controlled when she sees her cardiothoracic physiotherapist at [facility]. Wonder if there is an issuewith complianc Elevated Cardiac Biomarkers Patient with an echocardiogram that is relatively benign. Awaiting results of nuclear stress test if negative no further inpatient cardiac workup needed at this time Prosthetic Mitral Valve I reviewed the echocardiogram. There was some concern over the possibility of a vegetation on the mitral valve leaflet. This is not a vegetation this is retained anatomic mitral structure from havingher mitral valve surgically replaced. Patient needs to continue endocarditis prophylaxis and chronic anticoagulation. [facility] RECOMMENDATIONS: As Above SUBJECTIVE As Above REVIEW OF SYSTEMS (ROS): Negative except as mentioned in the HPI. PAST MEDICAL HISTORY She has a past medical history of Anemia, Asthma (06/13/2018), Rodriguez's esophagus (06/13/2018), Colon polyp (04/05/2018), Depression, Diverticulosis of colon (06/21/2018), Dysthymia (06/13/2018), Esophageal cancer ([facility]/HCC), Eye disease, Gangrenous cholecystitis (06/13/2018), GERD (gastroesophageal reflux disease), GERD with esophagitis (06/13/2018), Heart disease, Hemorrhoids, History of esophageal cancer (03/23/2011), Hyperlipidemia (06/13/2018), Internal and external hemorrhoids without complication (06/21/2018), Ischemic hepatitis (06/13/2018), Mitral regurgitation and mitral stenosis (06/13/2018), Pre-diabetes (06/13/2018), and Rheumatic heart disease (06/13/2018). PAST SURGICAL HISTORY She has a past surgical history that includes Other surgical history (2011); Colonoscopy (04/05/2017); Other surgical history (04/05/2017); Upper gastrointestinal endoscopy (08/08/2018); and Cardiac valuve replacement. SOCIAL HISTORY Tob: reports that she has quit smoking. She has never used smokeless tobacco. ETOH: reports current alcohol use. Drug: reports no history of drug use. FAMILY HISTORY She family history includes Cancer in her father. MEDICATIONS: SCHEDULED MEDICATIONS: dilTIAZem CD, 120 mg, oral, Daily pantoprazole, 40 mg, oral, q AM AC warfarin, 1 EA, Not Applicable, Daily [Held by provider] warfarin, 5 mg, oral, Once warfarin, 5 mg, oral, Once PRN MEDICATIONS: DRIPS: ALLERGIES: She is allergic to penicillin. OBJECTIVE Vitals: 05/17/24 1125 BP: 136/66 Pulse: 63 Resp: 18 Temp: 36.3 ??C (97.4 ??F) SpO2: 99% Body mass index is 27.11 kg/m??. PHYSICAL EXAMINATION: APPEARANCE: Alert and in no acute distress EYES: PERRL, conjunctiva and sclera normal EARS: External ears normal. NOSE/SINUS: Nares normal. Septum midline. Mucosa normal. No drainage or sinus tenderness. MOUTH/THROAT: no erythema or exudates NECK: JVP less then 8cm H2O, No bruits., Neck supple, no adenopathy, thyroid symmetric and of normal size HEART: RRR with normal S1 and S2, Left para sternal systolic murmur CHEST: non-tender LUNG: clear to auscultation ABDOMEN: Bowel sounds normoactive, no bruits, soft, non-tender, without organomegaly or palpable masses EXTREMITIES: Extremities warm and well perfused without clubbing, cyanosis, or edema NEURO: Awake, alert and oriented x 3, no gross focal abnormalities PSYCH: Appropriate, calm SKIN: Skin color, texture, turgor normal. No rashes or lesions. Thank you for allowing us to participate in this consultation. Please feel free to contact us with questions or concerns. We will 35 minutes was spent reviewing the medical record, imaging, labs, and seeing the patient which included explaining relevant diagnosis, providing patient education, discussing treatment options, in addition to documenting in the record. [facility] [address] [place] [address], [address] [place] [address] * REDDY Jules - 05/17/2024 9:40 AM EDT Speech Language Pathology Therapy session was attempted for Sheela Zavala by REDDY Jules on 05/17/2024. The patient was unable to be seen for the following reason(s): Off the floor at [facility] Plan for return visit: Later today for additional attempt * Marva Talbot RN - 05/17/2024 5:12 AM EDT Goals: Identify possible barriers to meeting goals/advancing plan of care: Stability of the patient: End of Shift Summary: * Jihan Rausch RN - 05/16/2024 4:22 PM EDT ED RN HANDOFF (All Goodwin Below Must Be Completed) Reason/Diagnosis for Admission: Type of Admission: [] Medsurg, [x] Telemetry Already in a Hospital Bed: [] Yes / [x] No Room Considerations/Precautions (ex: fever, diarrhea, or any infectious concerns): [] Yes / [x] No Dental Technician Instructor: [x] Yes / [] No If YES, Cardiac Rhythm: [x] NSR, [x] SB, [] ST, [] A-FIB, [] A-Flutter, [] Pacemaker, [] 1st DegreeHB, [] 2nd Degree HB, [] 3rd Degree HB Reason for Dental Technician Instructor: VS: Visit Vitals BP (!) 144/73 (BP Location: Left arm) Pulse 60 Temp 37 ??C (98.6 ??F) (Oral) Resp 16 Ht 1.549 m (61 ) Wt 65.1 kg (143 lb 8 oz) SpO2 99% BMI 27.11 kg/m?? Smoking Status Former BSA 1.64 m?? Current Mental Status: A/O x [x]4, []3, []2, []1 Current Ambulation Status: independent/ 1a while on heparin gtt IV Access: [x] Yes / [] No Field IV present: [] Yes / [] No Hx of Violence: [] Yes / [] No / [x] Unknown Fall Risk:[] Yes / [x] No Yellow Bracelet Applied [] Yes / [] No Yellow Socks Applied [] Yes / [] No Patient Belongings inventoried and BL completed: [x] Yes / [] No Patient belongings stored in the security closet: [] Yes (If Yes please supply Security bag #): [x] No Patient Medications stored in Pharmacy: [] Yes (If Yes please supply Medication Security bag #): [] No ED Summary of Care: This rn assumed care @ 1500, pt is on heparin gtt now @ 18u/kg/hr (11/9ml/hr) and bolus based on protocol and antixa Held warfarin d/t heparin gtt and gave cardizem Cambodian speaking ASSESSMENT & PLAN 1. Elevated troponin. No chest pain or pressure. A review of her troponin shows that they were normal May 02 this year. Warfarin was held and she was started on a heparin drip. I have ordered an echocardiogram to rule out wall motion abnormality. And we have requested cardiology consult. 2. Lung consolidations. Chest cta negative for PE but concerning for bilateral lung consolidations Durning for pneumonia or aspiration. Her lung sounds are clear she is comfortable at rest. Given herhistory of esophageal cancer aspiration is certainly in the differential. She will be on aspiration precaution. Will ask for speech to do a swallow evaluation and to treat. Presently no need for antibiotics. 3. Hypertension had been on diltiazem and once her medications are verified we will resume those. 4. Mitral valve replacement. She takes warfarin chronically currently on a heparin drip resume the warfarin when when cardiology ok Submitted by and Phone Extension: [phone] * Sujata Alamo RN - 05/16/2024 6:56 AM EDT ED RN HANDOFF (All Goodwin Below Must Be Completed) Reason/Diagnosis for Admission: elevated trop Type of Admission: [] Medsurg, [x] Telemetry Already in a Hospital Bed: [] Yes / [x] No Room Considerations/Precautions (ex: fever, diarrhea, or any infectious concerns): [] Yes / [x] No Dental Technician Instructor: [x] Yes / [] No If YES, Cardiac Rhythm: [x] NSR, [] SB, [] ST, [] A-FIB, [] A-Flutter, [] Pacemaker, [] 1st Degree HB, [] 2nd Degree HB, [] 3rd Degree HB Reason for Dental Technician Instructor: elevated trop VS: Visit Vitals BP 133/69 (BP Location: Left arm, Patient Position: Sitting) Pulse 60 Temp 36.7 ??C (98 ??F) (Oral) Resp 16 Ht 1.549 m (61 ) Wt 65.1 kg (143 lb 8 oz) SpO2 97% BMI 27.11 kg/m?? Smoking Status Former BSA 1.64 m?? Current Mental Status: A/O x [x]4, []3, []2, []1 Current Ambulation Status: independent IV Access: [x] Yes / [] No Field IV present: [] Yes / [x] No Hx of Violence: [] Yes / [x] No / [] Unknown Fall Risk:[] Yes / [x] No Yellow Bracelet Applied [] Yes / [x] No Yellow Socks Applied [] Yes / [x] No Patient Belongings inventoried and BL completed: [x] Yes / [] No Patient belongings stored in the security closet: [] Yes (If Yes please supply Security bag #): [x] No Patient Medications stored in Pharmacy: [] Yes (If Yes please supply Medication Security bag #): [x] No ED Summary of Care: Pt accidentally took other prescription pill instead of BP med, 200's/100's at home. Elevated trops in ED, heparin ACS protocol started. Next anti xa @ 0900. Denies pain. Mag given. Submitted by and Phone Extension: Sujata [phone] * Елена Ernst RN - 05/15/2024 8:55 PM EDT Via audiologist pt states that noticed that her blood pressure was high at home and decidedto come to the ER to get checked out. She did not take her blood pressure medication. Pt denies any headache, chest pain, shortness of breath, or physical complaints. * Dulce Maria Adames RN - 05/15/2024 8:31 PM EDT She is from home via EMS because she took her BP at home on an automatic cuff and got 200/100. EMS got 178/86 manually on both arms. She she doesn't know if she took her BP med or not. * JEY Ghotra - 05/15/2024 8:24 PM EDT Emergency Medicine Note Patient Name: Sheela Zavala Initial Evaluation: 05/15/2024 : 1955 Patient's PCP: Callum Muñoz MD Emergency Physician: JEY Ghotra History of Present Illness Chief Complaint: Chief Complaint Patient presents with Hypertension HPI: This is a very pleasant 68-year-old primarily Cambodian-speaking female interviewed with the assistance of video incident response engineer Lex, [id number] She states she confused her medication and is unsure whether or not she took her blood pressure medication. She states that her blood pressure was quite elevated and she began to get anxious so she came to the emergency department. She denies any chest pain palpitation shortness of breath, abdominal or back pain. She does have a history of mitral regurgitation/stenosis and is s/p Saint Brian mitral valve, rheumatic heart disease, Rodriguez's esophagus, esophageal CA s/p resection and pull-through ROS: I have performed a ROS with the pertinent positives and negatives documented in the history ofpresent illness. Previous History Past Medical History: Diagnosis Date Anemia DX:Anemia Asthma 06/13/2018 DX:Asthma Rodriguez's esophagus 06/13/2018 DX:Rodriguez's esophagus Colon polyp 04/05/2018 DX:Colon polyp; COMMENT: hyperplastic and inflammatory Depression DX:Depression Diverticulosis of colon 06/21/2018 DX:Diverticulosis of colon; COMMENT: Of ascending and descending colon Dysthymia 06/13/2018 DX:Dysthymia Esophageal cancer (CMS/HCC) DX:Esophageal cancer (HCC) Eye disease DX:Eye disease Gangrenous cholecystitis 06/13/2018 DX:Gangrenous cholecystitis GERD (gastroesophageal reflux disease) DX:GERD (gastroesophageal reflux disease) GERD with esophagitis 06/13/2018 DX:GERD with esophagitis Heart disease DX:Heart disease Hemorrhoids DX:Hemorrhoids History of esophageal cancer 03/23/2011 DX:History of esophageal cancer; COMMENT: S/p resection 2011 Hyperlipidemia 06/13/2018 DX:Hyperlipidemia Internal and external hemorrhoids without complication 06/21/2018 DX:Internal and external hemorrhoids without complication Ischemic hepatitis 06/13/2018 DX:Ischemic hepatitis Mitral regurgitation and mitral stenosis 06/13/2018 DX:Mitral regurgitation and mitral stenosis; COMMENT: S/p st brian mitral valve Pre-diabetes 06/13/2018 DX:Pre-diabetes Rheumatic heart disease 06/13/2018 DX:Rheumatic heart disease Past Surgical History: Procedure Laterality Date CARDIAC VALVE SURGERY PROCEDURE:CARDIAC VALVE SURGERY COLONOSCOPY 04/05/2017 PROCEDURE: OUTSIDE COLONOSCOPY; COMMENT: diverticulosis of asc/desc colon, 5 mm inflammatory polyp,int/ext hemorrhoids OTHER SURGICAL HISTORY 2011 PROCEDURE: ---- OTHER ----; COMMENT: esophageal resection OTHER SURGICAL HISTORY 04/05/2017 PROCEDURE: OUTSIDE ENDOSCOPY; COMMENT: grade D esophagitis UPPER GASTROINTESTINAL ENDOSCOPY 08/08/2018 PROCEDURE: VT UPPER GI ENDOSCOPY PERFORMED; COMMENT: severe erosive esophagitis Social History Tobacco Use Smoking status: Former Smokeless tobacco: Never Substance Use Topics Alcohol use: Yes Drug use: No Family History Problem Relation Name Age of Onset Colon cancer Neg Hx Cancer Father throat is allergic to penicillin. No current facility-administered medications on file prior to encounter. Current Outpatient Medications on File Prior to Encounter Medication Sig Dispense Refill dilTIAZem CD (CARDIZEM CD) 120 mg 24 hr capsule Take 1 capsule (120 mg total) by mouth 1 (one) timeeach day. escitalopram (LEXAPRO) 20 mg tablet Take 1 tablet (20 mg total) by mouth 1 (one) time each day. (Patient not taking: Reported on 05/09/2024) losartan (COZAAR) 25 mg tablet Take 1 tablet (25 mg total) by mouth 1 (one) time each day. (Patientnot taking: Reported on 05/09/2024) meclizine (ANTIVERT) 25 mg tablet 1 POR V A ORAL 2-3 TIMES DAILY CUANDO SEA NECESARIO FOR MOTION SICKNESS FOR 90 DAYS omeprazole (PriLOSEC) [address] capsule Take 1 capsule (40 mg total) by mouth 1 (one) time each day.Do not crush or chew. 90 each 3 rosuvastatin (CRESTOR) 10 mg tablet Take 1 tablet (10 mg total) by mouth 1 (one) time each day. (Patient not taking: Reported on 05/09/2024) warfarin (COUMADIN) 4 mg tablet Take 1-2 tablets (4-8 mg total) by mouth 1 (one) time each day withdinner. Physical Exam ED Triage Vitals [05/15/242050] Temp Heart Rate Resp BP 36.6 ??C (97.9 ??F) 72 20 (!) 178/86 SpO2 Temp Source Heart Rate Source Patient Position 98 % Oral Radial Sitting BP Location FiO2 (%) Left arm -- General: Well-appearing, well nourished, in no acute distress HEENT: PERRL, EOMI, external ears and nose appear unremarkable, airway is patent Neck: Supple, full range of motion Chest: Clear to auscultation; no evidence of respiratory distress Circulatory: RRR, extremities well perfused Abdomen: Non-distended, Non-Tender Extremities: Normal ROM, No edema Skin: Warm and dry Neuro: Alert and oriented, no focal deficits Results Labs Reviewed TROPONIN I HIGH SENSITIVITY - Abnormal Result Value High Sensitivity Troponin I 285 (*) Narrative: High levels of biotin in samples may falsely decrease hsTroponin values. Use caution when interpreting hsTroponin results in patients taking biotin who exhibit renal impairment (eGFR <60) or in patients taking more than 20 mg/day of biotin. TROPONIN I HIGH SENSITIVITY - Abnormal High Sensitivity Troponin I 314 (*) Narrative: High levels of biotin in samples may falsely decrease hsTroponin values. Use caution when interpreting hsTroponin results in patients taking biotin who exhibit renal impairment (eGFR <60) or in patients taking more than 20 mg/day of biotin. COMPREHENSIVE METABOLIC PANEL - Abnormal Sodium 143 Potassium 4.1 Chloride 111 (*) CO2 23 Anion Gap 9 Glucose 108 (*) BUN 17 Creatinine 0.56 eGFR 98 BUN/Creatinine Ratio 30.4 Calcium 9.6 AST (SGOT) 22 ALT (SGPT) 20 Alkaline Phosphatase 86 Total Protein 7.2 Albumin 3.7 Total Bilirubin 0.3 MAGNESIUM - Abnormal Magnesium 1.7 (*) CBC WITH AUTO DIFFERENTIAL - Abnormal WBC 9.6 RBC 4.30 Hemoglobin 11.7 Hematocrit 37.3 MCV 86.3 MCH 27.1 MCHC 31.4 (*) RDW 15.3 (*) Platelets 272 MPV 12.1 (*) NRBC 0.0 NRBC Absolute 0.00 Neutrophils Relative 72.4 Lymphocytes Relative 20.2 Monocytes Relative 3.9 Eosinophils Relative 2.6 Basophils Relative 0.6 Immature Granulocytes Relative 0.3 Neutrophils Absolute 6.91 Lymphocytes Absolute 1.93 Monocytes Absolute 0.37 Eosinophils Absolute 0.25 Basophils Absolute 0.06 Immature Granulocytes Absolute 0.03 LIPASE - Normal Lipase 29 B-TYPE NATRIURETIC PEPTIDE - Normal BNP 77 CBC AND DIFFERENTIAL Narrative: The following orders were created for panel order CBC and differential. Procedure Abnormality Status --------- ------ CBC auto differential[[id number]] Abnormal Final result Please view results for these tests on the individual orders. PROTHROMBIN TIME WITH INR ACTIVATED PARTIAL THROMBOPLASTIN TIME HEPARIN ANTI XA Abnormal Labs Reviewed TROPONIN I HIGH SENSITIVITY - Abnormal; Notable for the following components: Result Value High Sensitivity Troponin I 285 (*) All other components within normal limits Narrative: High levels of biotin in samples may falsely decrease hsTroponin values. Use caution when interpreting hsTroponin results in patients taking biotin who exhibit renal impairment (eGFR <60) or in patients taking more than 20 mg/day of biotin. TROPONIN I HIGH SENSITIVITY - Abnormal; Notable for the following components: High Sensitivity Troponin I 314 (*) All other components within normal limits Narrative: High levels of biotin in samples may falsely decrease hsTroponin values. Use caution when interpreting hsTroponin results in patients taking biotin who exhibit renal impairment (eGFR <60) or in patients taking more than 20 mg/day of biotin. COMPREHENSIVE METABOLIC PANEL - Abnormal; Notable for the following components: Chloride 111 (*) Glucose 108 (*) All other components within normal limits MAGNESIUM - Abnormal; Notable for the following components: Magnesium 1.7 (*) All other components within normal limits CBC WITH AUTO DIFFERENTIAL - Abnormal; Notable for the following components: MCHC 31.4 (*) RDW 15.3 (*) MPV 12.1 (*) All other components within normal limits XR Chest 2 Views ED Interpretation No infiltrate or effusion, stomach in chest I have discussed the incidental/abnormal imaging and/or lab abnormalities with the patient and haveinstructed them the need for further evaluation and workup with their primary care doctor. I have provided the patient with a paper copy of the abnormality. The laboratory results, imaging results and other diagnostic exam results were reviewed in the EMR. EKG Interpretation Critical Care Time None ? Medical Decision Making Medications magnesium sulfate 2 gram/50 mL (4 %) IVPB 2 g (2 g intravenous New Bag 05/16/24220) heparin (UFH) bolus from infusion 3,972 Units (has no administration in time range) heparin infusion 100 units/mL in D5W (has no administration in time range) heparin (UFH) bolus from infusion 3,972 Units (has no administration in time range) Or heparin (UFH) bolus from infusion 1,986 Units (has no administration in time range) LORazepam (ATIVAN) tablet 0.5 mg (0.5 mg oral Given 05/16/24220) 05/16/24 12:06 AM patient seen and evaluated, vitals reviewed, blood pressure is slightly elevated, but downtrending since arrival to ED, presenting for concern that her blood pressure was elevated because she confused her medication and is not sure whether or not she took the 1 for her blood pressure. She states she began to feel extremely anxious. Physical exam is unremarkable. Her EKG is nonischemic, she is chest pain-free, however her initial troponin was elevated to 285. When she was here 2weeks ago troponins 35 and 67 respectively. Her magnesium is also low at 1.7, will be repleted. Second troponin is pending. Chest x-ray is without any infiltrate or effusion. Largely unchanged from pr evious. Anticipate that we will be hospitalizing however will wait for second troponin for ultimatedisposition. ED Course as of 05/16/24 0255 Sandi May 16, 2024 0208 Repeat EKG shows normal sinus rhythm at [address] or T wave changes suggestive of ischemia. Largely unchanged from EKG at 2355 on 05/15/2024. She remains chest pain-free. [LQ] 0239 Repeat troponin of 314. Patient remains chest pain free. Will heparinize and transfer care to medicine team. [LQ] ED Course User Index [LQ] JEY Ghotra Clinical Impressions as of 05/16/24 0255 Elevated troponin Procedures Procedures Diagnosis 1. Elevated troponin Disposition Admit to Inpatient ED Prescriptions None Physician Attestation JEY Ghotra 05/16/24 0205 JEY Ghotra 05/16/24 0255 Cosigned by Gale Sandoval MD at 05/16/2024 7:33 AM EDT documented in this encounter Consult Notes * Gildardo Mccabe MD - 05/16/2024 2:54 PM EDT Addendum: 15 May 2024 I will not start Coumadin tonight. She has been with an INR of 2.8 and on heparin so we will start Coumadin tomorrow at 5 mg a day and discontinue heparin tonight [facility]- Cardiology Consultation Note PATIENT NAME: Sheela Zavala ([id number]) DATE OF CONSULT: REFERRING PROVIDER: Monica PRIMARY OYSTER FARMER: DR Quinones [facility] [place] ASSESSMENT & PLAN Principal Problem: NSTEMI (non-ST elevated myocardial infarction) ([facility]) Active Problems: Benign essential HTN H/O mitral valve replacement with mechanical valve Mitral valve replacement. Patient is to be restarted on her Coumadin INR was 2.8 there is no need to heparinize this lady sheis fully anticoagulated restart Coumadin at 4 mg tonight with an INR in the morning and discontinuethe heparin. Echo pending. Elevated cardiac biomarkers: Patient now with some mild biomarker release. May be secondary to poorly controlled blood pressure most likely demand event. I would plan on a nuclear stress test tomorrow to assess for underlying ischemic disease. This is her second admission with chest pain the first being on 02 May. Hypertension: It appears that hypertension is been an issue for the patient [facility] records indicate that she says her nighttime or evening blood pressures are higher than those in the morning when she went for inpatient blood pressure checks in the office there is only a mild elevation in pressure. She was blaming her medical therapy for late day hypertension. Will continue to monitor blood pressure here [facility] RECOMMENDATIONS: As per above SUBJECTIVE REASON FOR CONSULTATION: HYpertension HISTORY OF PRESENT ILLNESS: Sheela Zavala is a 68-year-old female history hypertension, mechanical mitral valve on Coumadin history of esophageal cancer status post chemo and radiation hypertension anemia seen 2 weeks ago in the ER with complaints of chest tightness and hypertension. Her EKG did not reveal any abnormalities. Her blood pressure was 167 systolic. Her troponins were relatively flat. Her EKG was nondynamic she came pain-free in the ER they discharged her. Patient came back to the ER today confused as to whether she took her hypertensive therapy or not her blood pressure was elevated she got anxious she came to the ER she had no chest pain or symptoms. Troponin now is 285 peak to 314 and is now down to 116 normal creatinine She has a history of esophageal cancer status post resection in 2011. Endoscopy 2018 showed severe esophagitis and Rodriguez's esophagus. She has history of persistent acid reflux. History of smoking in remission Patient is not followed by us in our office. Patient is a 68-year-old female who is followed by [facility] cardiology. Patient has a history of mechanical valve replacement for rheumatic valve disease. She is on Coumadin being managed by her PCP.She is on Zetia for lipid management. Her valve placement was done in 2007. She is a 31 mm Saint Brian mechanical prosthesis. She had 3-4+ mitral insufficiency with some degree of mitral stenosis withrolled edges of the mitral valve. Diagnostic cardiac catheterization done prior to valve placement surgery showed no obstructive coronary disease and no bypasses were performed. The patient was seen by her primary cardiothoracic physiotherapist back in April 2023 with complaints of shortness ofbreath not consistent with exercise happen randomly. She occasion has a vomit with the symptoms andthe vomiting relieves the symptoms. Her last echocardiogram in 2022 showed an EF of 60-6 5%. No regional wall motion normalities the mechanical valve was normal no other valvular abnormalities were identified. She has a history of esophageal cancer status post resection of the esophagus. She has chronic intermittent dizziness on meclizine she has asthma history of gangrenous cholecystitis ischemic hepatitis prediabetes hyperlipidemia chronic vertigo her last noninvasive valuation for ischemia was a nuclear stress test done in 2022 at [facility] as a pharmacologic per protocol they saw a fixed moderate intensity perfusion defect at the apex and distal inferolateral wall and distal anterior septal wall with no significant wall motion abnormalities suggestive of infarct no reversible perfusion defects are identified. The nuclear scan was performed after the echocardiogram in 2022 Patient is a 68-year-old female who is followed by [facility] cardiology. Patient has a history of mechanical valve replacement for rheumatic valve disease. She is on Coumadin being managed by her PCP.She is on Zetia for lipid management. Her valve placement was done in 2007. She is a 31 mm Saint Brian mechanical prosthesis. She had 3-4+ mitral insufficiency with some degree of mitral stenosis withrolled edges of the mitral valve. Diagnostic cardiac catheterization done prior to valve placement surgery showed no obstructive coronary disease and no bypasses were performed. The patient was seen by her primary cardiothoracic physiotherapist back in April 2023 with complaints of shortness ofbreath not consistent with exercise happen randomly. She occasion has a vomit with the symptoms andthe vomiting relieves the symptoms. Her last echocardiogram in 2022 showed an EF of 60-6 5%. No regional wall motion normalities the mechanical valve was normal no other valvular abnormalities were identified. She has a history of esophageal cancer status post resection of the esophagus. She has chronic intermittent dizziness on meclizine she has asthma history of gangrenous cholecystitis ischemic hepatitis prediabetes hyperlipidemia chronic vertigo her last noninvasive valuation for ischemia was a nuclear stress test done in 2022 at [facility] as a pharmacologic per protocol they saw a fixed moderate intensity perfusion defect at the apex and distal inferolateral wall and distal anterior septal wall with no significant wall motion abnormalities suggestive of infarct no reversible perfusion defects are identified. The nuclear scan was performed after the echocardiogram in 2022 Patient states that she is compliant with medical therapy and is been taking on a regular basis butthat her blood pressure is a cyclical roller coaster of pressures that are up and down. It appears the patient went to [facility] on 07 May to have her blood pressure checked there was 141/72 on the right she has the doctors in the clinic to change her diltiazem because that was making her sleepy at night she also thought was causing her blood pressure to go up she was taking 120 mg once a day. So she was complaining that her afternoon blood pressures were higher and she thought was a side effect of the medical therapy. REVIEW OF SYSTEMS (ROS): Negative except as mentioned in the HPI. PAST MEDICAL HISTORY She has a past medical history of Anemia, Asthma (06/13/2018), Rodriguez's esophagus (06/13/2018), Colon polyp (04/05/2018), Depression, Diverticulosis of colon (06/21/2018), Dysthymia (06/13/2018), Esophageal cancer (CMS/HCC), Eye disease, Gangrenous cholecystitis (06/13/2018), GERD (gastroesophageal reflux disease), GERD with esophagitis (06/13/2018), Heart disease, Hemorrhoids, History of esophageal cancer (03/23/2011), Hyperlipidemia (06/13/2018), Internal and external hemorrhoids without complication (06/21/2018), Ischemic hepatitis (06/13/2018), Mitral regurgitation and mitral stenosis (06/13/2018), Pre-diabetes (06/13/2018), and Rheumatic heart disease (06/13/2018). PAST SURGICAL HISTORY She has a past surgical history that includes Other surgical history (2011); Colonoscopy (04/05/2017); Other surgical history (04/05/2017); Upper gastrointestinal endoscopy (08/08/2018); and Cardiac valuve replacement. SOCIAL HISTORY Tob: reports that she has quit smoking. She has never used smokeless tobacco. ETOH: reports current alcohol use. Drug: reports no history of drug use. FAMILY HISTORY She family history includes Cancer in her father. MEDICATIONS: Current Facility-Administered Medications: ??? dilTIAZem CD (CARDIZEM CD) 24 hr capsule 120 mg, 120 mg, oral, Daily, Jl Meza MD ??? heparin (UFH) bolus from infusion 3,972 Units, 60 Units/kg, intravenous, q6h PRN OR heparin(UFH) bolus from infusion 1,986 Units, 30 Units/kg, intravenous, q6h PRN, JEY Ghotra, 1,986 Units at 05/16/24 1017 ??? heparin infusion 100 units/mL in D5W, 12 Units/kg/hr, intravenous, Continuous, JEY Ghotra, Last Rate: 9.3 mL/hr at 05/16/24 1013, 14 Units/kg/hr at 05/16/24 1013 ??? [START ON 05/17/2024] pantoprazole (PROTONIX) EC tablet 40 mg, 40 mg, oral, q AM AC, Jl Meza MD ??? warfarin (COUMADIN) tablet 5 mg, 5 mg, oral, Once, Jl Meza MD Current Outpatient Medications: ??? dilTIAZem CD (CARDIZEM CD) 120 mg 24 hr capsule, Take 1 capsule (120 mg total) by mouth 1 (one)time each day., Disp: , Rfl: ??? escitalopram (LEXAPRO) 20 mg tablet, Take 1 tablet (20 mg total) by mouth 1 (one) time each day. (Patient not taking: Reported on 05/09/2024), Disp: , Rfl: ??? losartan (COZAAR) 25 mg tablet, Take 1 tablet (25 mg total) by mouth 1 (one) time each day. (Patient not taking: Reported on 05/09/2024), Disp: , Rfl: ??? meclizine (ANTIVERT) 25 mg tablet, 1 POR V A ORAL 2-3 TIMES DAILY CUANDO SEA NECESARIO FOR MOTION SICKNESS FOR 90 DAYS, Disp: , Rfl: ??? omeprazole (PriLOSEC) [address] capsule, Take 1 capsule (40 mg total) by mouth 1 (one) time eachday. Do not crush or chew., Disp: 90 each, Rfl: 3 ??? rosuvastatin (CRESTOR) 10 mg tablet, Take 1 tablet (10 mg total) by mouth 1 (one) time each day. (Patient not taking: Reported on 05/09/2024), Disp: , Rfl: ??? warfarin (COUMADIN) 4 mg tablet, Take 1-2 tablets (4-8 mg total) by mouth 1 (one) time each daywith dinner., Disp: , Rfl: ALLERGIES: She is allergic to penicillin. OBJECTIVE Vitals: 05/16/24 1432 BP: (!) 164/73 Pulse: 54 Resp: 16 Temp: 36.9 ??C (98.4 ??F) SpO2: 99% Body mass index is 27.11 kg/m??. PHYSICAL EXAMINATION: APPEARANCE: Alert and in no acute distress EYES: PERRL, conjunctiva and sclera normal EARS: External ears normal. NOSE/SINUS: Nares normal. Septum midline. Mucosa normal. No drainage or sinus tenderness. MOUTH/THROAT: no erythema or exudates NECK: JVP less then 8cm H2O, No bruits., Neck supple, no adenopathy, thyroid symmetric and of normal size HEART: Regular rhythm good metallic valve click CHEST: non-tender LUNG: clear to auscultation ABDOMEN: Bowel sounds normoactive, no bruits, soft, non-tender, without organomegaly or palpable masses EXTREMITIES: Extremities warm and well perfused without clubbing, cyanosis, or edema NEURO: Awake, alert and oriented x 3, no gross focal abnormalities PSYCH: Appropriate, calm SKIN: Skin color, texture, turgor normal. No rashes or lesions. Thank you for allowing us to participate in this consultation. Please feel free to contact us with questions or concerns. We will . 35 minutes was spent reviewing the medical record, imaging, labs, and seeing the patient which included explaining relevant diagnosis, providing patient education, discussing treatment options, in addition to documenting in the record. [facility] [address] [facility], [address] [place] [id number] documented in this encounter Plan of Treatment Upcoming Encounters Date Type Department Care Team (Late st Contact Info) Description 06/12/2024 12:[address] [facility] [address] [place] [id number] Jacobo Pope MD [address] [facility] [address] [place] [address] Scheduled Orders Name Type Priority Associated Diagnoses Orde r Schedule ECG 12 lead ECG STAT Once for 1 Oc currences starting 05/16/2024 until 05/16/2024 documented as of this encounter Procedures Procedure Name Priority Date/Time Associated Diagnosis Comments ECG ANNOTATED 05/18/2024 NM LEXISCAN STRESS TEST W/ MYOCARDIAL PERFUSION Routine 05/17/2024 11:38 AM EDT NSTEMI (non-ST elevated myocardial infarction) (CMS/HCC) TRANSTHORACIC ECHOCARDIOGRAM (TTE) COMPLETE W/ CONTRAST Routine 05/17/2024 9:26 AM EDT NSTEMI (non-ST elevated myocardial infarction) (CMS/HCC) CBC WITH AUTO DIFFERENTIAL Routine 05/17/2024 6:42 AM EDT PROTHROMBIN TIME WITH INR Routine 05/17/2024 6:42 AM EDT CBC AND DIFFERENTIAL Routine 05/17/2024 6:42 AM EDT BASIC METABOLIC PANEL Routine 05/17/2024 6:42 AM EDT SST - GOLD Routine 05/17/2024 6:35 AM EDT EXTRA TUBES Routine 05/17/2024 6:35 AM EDT PROCALCITONIN STAT Add-on 05/16/2024 2:47 PM EDT HEPARIN ANTI XA STAT 05/16/2024 2:47 PM EDT TROPONIN I HIGH SENSITIVITY STAT 05/16/2024 12:22 PM EDT LIPID PANEL WITH REFLEX TO DIRECT LDL STAT 05/16/2024 12:22 PM EDT CBC WITH AUTO DIFFERENTIAL STAT 05/16/2024 12:22 PM EDT CBC AND DIFFERENTIAL STAT 05/16/2024 12:22 PM EDT CREATINE KINASE AND CKMB Routine 05/16/2024 12:22 PM EDT CREATINE KINASE STAT 05/16/2024 12:22 PM EDT BASIC METABOLIC PANEL STAT 05/16/2024 12:22 PM EDT HEPARIN ANTI XA STAT 05/16/2024 8:53 AM EDT ACTIVATED PARTIAL THROMBOPLASTIN TIME STAT 05/16/2024 2:58 AM EDT PROTHROMBIN TIME WITH INR STAT 05/16/2024 2:58 AM EDT HEPARIN ANTI XA STAT 05/16/2024 2:58 AM EDT ECG 12-LEAD STAT 05/16/2024 2:04 AM EDT TROPONIN I HIGH SENSITIVITY STAT 05/16/2024 1:53 AM EDT XR CHEST 2 VIEWS STAT 05/16/2024 1:11 AM EDT ECG 12-LEAD STAT 05/15/2024 11:55 PM EDT TROPONIN I HIGH SENSITIVITY STAT 05/15/2024 11:49 PM EDT CBC WITH AUTO DIFFERENTIAL STAT 05/15/2024 11:49 PM EDT CBC AND DIFFERENTIAL STAT 05/15/2024 11:49 PM EDT B-TYPE NATRIURETIC PEPTIDE STAT 05/15/2024 11:49 PM EDT MAGNESIUM STAT 05/15/2024 11:49 PM EDT LIPASE STAT 05/15/2024 11:49 PM EDT COMPREHENSIVE METABOLIC PANEL STAT 05/15/2024 11:49 PM EDT documented in this encounter Results * ECG-Annotated (05/18/2024) us Provider Onbase ECG ORDERABLES Final Result * NM LEXISCAN STRESS TEST W/ MYOCARDIAL PERFUSION (05/17/2024 11:38 AM EDT) Exercise/inject ion duration (min) 0 CV PACS STRESS Exercise/inject ion duration (sec) 39 CV PACS STRESS Peak SBP 150 mmHg CV PACS STRESS Peak DBP 61 mmHg CV PACS STRESS Peak HR 88 bpm CV PACS STRESS Baseline HR 60 bpm CV PACS STRESS Baseline SBP 150 mmHg CV PACS STRESS Baseline DBP 61 mmHg CV PACS STRESS Estimated workload 1.0 METS CV PACS STRESS Percent HR 59 % CV PACS STRESS Rate Pressure Product 13,200.0 mmHg*bpm CV PACS STRESS Target HR 128 bpm CV PACS STRESS ST Depression (mm) 0 mm CV PACS STRESS TID 0.90 CV PACS STRESS Nuc Stress EF 69 % CV PAC S STRESS Nuc Rest EF 59 % CV PACS STRESS Anatomical Region Laterality Modality Nuclear Medicine 05/17/2024 10:1 0 AM EDT 05/17/2024 11:12 AM EDT Narrative 05/17/2024 3:52 PM EDT ?Vasodilator (regadenoson) stress test was performed . ?? Patient reported no symptoms during the stress test. Normal blood pressure response. ?Normal myocardial perfusion study. The study is negative for evidence of ischemia and infarction. ?LV perfusion is normal. ?Normal left ventricular function post-stress. Stress ejection fraction is 69%. Stress Findings A pharmacological stress test was performed using regadenoson, 0.4 mg IV over 10-15 seconds, followed by radiopharmacological injection 10 seconds post infusion. Total stress time was 0 min and 39 sec. The patient reached the end of the protocol. The patient's hemodynamic response was adequate for diagnosis. Blood pressure demonstrated a normal response. Heart rate demonstrated a normal response. The patient reported no symptoms during the stress test. ECG 68-year-old female with past medical history of hypertension, mechanical mitral valve replacement, esophageal cancer status post resection in 2011 and former smoking who presents today for nuclear stress testing to rule out ischemia in the setting of elevated troponin and dyspnea on exertion. The ECG shows normal sinus rhythm. There were no arrhythmias during stress. There is no ST segment changes during stress. There were no arrhythmias during recovery. Nuclear Study Quality Study technique: MPI, SPECT, multi, rest and stress, 1 day. Overall image quality is good. CT attenuation correction was utilized. Diaphragmatic attenuation artifact is present. There was no increased lung uptake of the radiopharmaceutical. Stress Function Comments Left ventricular systolic function post-stress is normal. Stress ejection fraction is 69%. Rest Function Comments Left ventricular function at rest was normal. Resting ejection fraction was 59%. Stress Combined Conclusion Normal myocardial perfusion study. Overall low cardiovascular risk. The study is negative for evidence of ischemia and infarction. CT Findings No coronary calcium Perfusion Comments LV perfusion is normal. There is no evidence of inducible ischemia. us Gildardo Mccabe MD CV STRESS PROCEDURES Final Res ult * TRANSTHORACIC ECHOCARDIOGRAM (TTE) COMPLETE W/ CONTRAST (05/17/2024 9:26 AM EDT) Left Atrium Minor [place]don 6.2 cm CV PACS Left Atrium Major [place]don 6.3 cm CV PACS LA Area Sys (A2C) 25 cm2 CV PACS LA Area Sys (A4C) 26 cm2 CV PACS LA Volume (BP) 84 mL CV PACS RA Area 15.7 cm2 CV PACS RA 2D Volume 38 mL CV PACS AV Mean Gradient 4 mmHg CV PACS Ao VTI 28.8 cm CV PACS AV Peak Mundo 1.4 m/s CV PACS AV Peak Gradient 8 mmHg CV PACS AV Area Continuity Equation 2.0 cm2 CV PACS AV Area Peak Velocity 1.9 cm2 CV PACS Aortic Sinus Valsalva 2.9 cm CV PACS Ascending Aorta 3.2 cm CV PACS IVSD 0.9 0.6 - 0.9 cm CV PACS LVIDD 4.8 3.8 - 5.2 cm CV PACS LVIDS 3.4 2.2 - 3.5 cm CV PACS LVOT Diameter 1.8 cm CV PACS LVOT Mean Mundo 0.7 m/s CV PACS LVOT Mean Grad 2 mmHg CV PACS LVOT Peak VTI 23.1 cm CV PACS LVOT Peak Mundo 1.1 m/s CV PACS LVOT Peak Gradient 5 mmHg CV PACS LVPWD 0.9 0.6 - 0.9 cm CV PACS LVOT Area 2.5 cm2 CV PACS LVOT Stroke Volume 59 mL CV PACS MV Deceleration [place] 5.1 m/s2 CV PACS E Wave Deceleration Time 203 119 - 242 ms CV PACS MV PHT 60 ms CV PACS MV Peak A Mundo 0.87 m/s CV PACS MV Peak E Mundo 1.03 m/s CV PACS MV Mean Gradient 2 mmHg CV PACS MV VTI 38.1 cm CV PACS Mitral Valve Max Velocity 1.2 m/s CV PACS MV Peak Gradient 6 mmHg CV PACS MV Area PHT 3.7 cm2 CV PACS MV Area Continuity Equation 1.5 cm2 CV PACS PV Acceleration Time 77 ms CV PACS RV Diastolic Basal Dimension 3.6 2.5 - 4.1 cm CV PACS RV S' 12 cm/s CV PACS TAPSE 18 mm CV PACS TR Peak Velocity 2.12 m/s CV PACS TR Peak Gradient 18 mmHg CV PACS LVOT Stroke Index 36 mL/m2 CV PACS Relative Wall Thickness ratio 0.38 CV PACS LVOT:AV VTI Index 0.80 CV PACS FS 29 % CV PACS LV Mass 2D 148 g CV PACS Ascending Aorta Index 1.95 cm/m2 CV PACS MV VTI:LVOT VTI ratio 1.6 CV PACS LVOT flow 178 mL/s CV PACS RA 2D Volume Index 23 mL/m2 CV PACS BILLY Index (VTI) 1.24 cm2/m2 CV PACS BILLY Index (Pk Mundo) 1.16 cm2/m2 CV PACS LVIDD Index 2.93 cm/m2 CV PACS LVIDS Index 2.07 cm/m2 CV PACS AV Velocity Ratio 0.79 CV PACS E/A Ratio 1.2 CV PACS LA Volume Index (BP) 51 mL/m2 CV PACS LV Mass Index 2D 90 g/m2 CV PACS BSA 1.69 m2 CV PACS Right Ventricular Peak Systolic Pressure 21 mmHg CV PACS Est. RA Pressure 3 mmHg CV PACS Anatomical Region Laterality Modality Ultrasound Narrative 05/17/2024 11:17 AM EDT ?Left ventricle cavity size is normal. Left ventricular systolic function is low normal with an ejection fraction of 50-55%. ?Right ventricle cavity is normal. Right ventricular systolic function is normal. ?There is a mechanical valve in the mitral position. Appears well seated with normal function. There is a mobile echo density noted in the LVOT in the parasternal long images. Suspect this is related to mobile chordae post-surgery though I have no prior to compare. ?Left atrium is severely dilated. ?See remainder of the report for additional findings. Left Ventricle Left ventricle cavity size is normal. Wall thickness at upper limits of normal. Systolic function is low normal with an ejection fraction of 50-55%. Abnormal septal motion. Unable to assess diastolic function due to presence of mechanical mitral valve. Right Ventricle Right ventricle cavity appears normal. Systolic function is normal. Left Atrium Left atrium cavity is severely dilated. Right Atrium Right atrium cavity is normal. IVC/SVC RA pressures is estimated to be 3 mmHg (IVC diameter <21 mm and decreases >50% during inspiration). Mitral Valve Mechanical mitral valve is well seated and functioing normally. There is trace regurgitation. The mean gradient through the valve is 2 mmHg. Tricuspid Valve Tricuspid valve structure is normal. There is mild to moderate regurgitation. The right ventricular systolic pressure is normal. Aortic Valve The aortic valve is trileaflet. Thickened aortic valve leaflets. There is no regurgitation or stenosis. Pulmonic Valve Pulmonic valve structure is normal. There is trace pulmonic valve regurgitation. Ascending Aorta The aorta appears normal in size. Transverse aorta not well visualized. Pericardium Pericardium appears normal. There is no pericardial effusion. Study Details Overall the study quality was adequate. Definity contrast was given to enhance imaging. Key Kirby NP CV ECHO PROCEDURES Final Resul t * (ABNORMAL) CBC auto differential (05/17/2024 6:42 AM EDT) WBC 6.2 4.8 - 10.8 K/mcL LAB HEMETOLOGY METHOD 05/17/2024 7:52 AM EDT [facility] RBC 4.40 3.80 - 4.80 M/mcL LAB HEMETOLOGY METHOD 05/17/2024 7:52 AM EDT [facility] Hemoglobin 12.0 11.5 - 16.0 g/dL LAB HEMETOLOGY METHOD 05/17/2024 7:52 AM [facility] Hematocrit 37.7 35.0 - 47.0 % LAB HEMETOLOGY METHOD 05/17/2024 7:52 AM [facility] MCV 85.7 79.0 - 98.0 FL LAB HEMETOLOGY METHOD 05/17/2024 7:52 AM [facility] MCH 27.3 27.0 - 32.0 pcg LAB HEMETOLOGY METHOD 05/17/2024 7:52 AM [facility] MCHC 31.8(L) 32.0 - 37.0 g/dL LAB HEMETOLOGY METHOD 05/17/2024 7:52 AM [facility] RDW 15.2(H) 11.0 - 15.0 % LAB HEMETOLOGY METHOD 05/17/2024 7:52 AM [facility] Platelets 255 130 - 400 K/mcL LAB HEMETOLOGY METHOD 05/17/2024 7:52 AM [facility] MPV 13.2(H) 7.0 - 11.0 FL LAB HEMETOLOGY METHOD 05/17/2024 7:52 AM [facility] NRBC 0.0 <1.0 % LAB HEMETOLOGY METHOD 05/17/2024 7:52 AM [facility] NRBC Absolute 0.00 <0.10 K/mcL LAB HEMETOLOGY METHOD 05/17/2024 7:52 AM [facility] Neutrophils Relative 62.4 % LAB HEMETOLOGY METHOD 05/17/2024 7:52 AM [facility] Lymphocytes Relative 24.6 % LAB HEMETOLOGY METHOD 05/17/2024 7:52 AM [facility] Monocytes Relative 6.5 % LAB HEMETOLOGY METHOD 05/17/2024 7:52 AM EDT [facility] Eosinophils Relative 5.4 % LAB HEMETOLOGY METHOD 05/17/2024 7:52 AM EDT [facility] Basophils Relative 0.8 % LAB HEMETOLOGY METHOD 05/17/2024 7:52 AM EDT [facility] Immature Granulocytes Relative 0.3 % LAB HEMETOLOGY METHOD 05/17/2024 7:52 AM EDT [facility] Neutrophils Absolute 3.84 1.50 - 7.00 K/mcL LAB HEMETOLOGY METHOD 05/17/2024 7:52 AM EDT [facility] Lymphocytes Absolute 1.51 1.00 - 5.00 K/mcL LAB HEMETOLOGY METHOD 05/17/2024 7:52 AM EDT [facility] Monocytes Absolute 0.40 0.20 - 1.00 K/mcL LAB HEMETOLOGY METHOD 05/17/2024 7:52 AM EDT [facility] Eosinophils Absolute 0.33 0.00 - 0.50 K/mcL LAB HEMETOLOGY METHOD 05/17/2024 7:52 AM EDT [facility] Basophils Absolute 0.05 0.00 - 0.20 K/mcL LAB HEMETOLOGY METHOD 05/17/2024 7:52 AM EDT [facility] Immature Granulocytes Absolute 0.02 0.00 - 0.03 K/mcL LAB HEMETOLOGY METHOD 05/17/2024 7:52 AM EDT [facility] Blood Venous blood specimen / Unknown Venipuncture / Unknown 05/17/2024 6:42 AM EDT 05/17/2024 7:25 AM EDT us Key Kirby NP LAB BLOOD ORDERABLES Final Res ult [facility] [address] [place] [address], * (ABNORMAL) Prothrombin time with INR (05/17/2024 6:42 AM EDT) Pathologist [facility] Protime 30.5(H) 10.6 - 13.9 sec LAB COAGULATION METHOD 05/17/2024 7:45 AM EDT [facility] INR 2.5 LAB COAGULATION METHOD 05/17/2024 7:45 AM T [facility] Blood Venous blood specimen / Unknown Venipuncture / Unknown 05/17/2024 6:42 AM EDT 05/17/2024 7:25 AM EDT us Gildardo Mccabe MD LAB BLOOD ORDERABLES Final Res ult [facility] [address] [place] [address], * Basic metabolic panel (05/17/2024 6:42 AM EDT) [facility] Sodium 138 133 - 145 mmol/L LAB CHEMISTRY METHOD 05/17/2024 8:26 AM [facility] Potassium 4.3 3.5 - 5.5 mmol/L LAB CHEMISTRY METHOD 05/17/2024 8:26 AM [facility] Comment:Hemolysis present Chloride 107 96 - 110 mmol/L LAB CHEMISTRY METHOD 05/17/2024 8:26 AM [facility] CO2 24 21 - 32 mmol/L LAB CHEMISTRY METHOD 05/17/2024 8:26 AM [facility] Anion Gap 7 3 - 11 LAB CHEMISTRY METHOD 05/17/2024 8:26 AM [facility] Glucose 96 70 - 100 mg/dL LAB CHEMISTRY METHOD 05/17/2024 8:26 AM [facility] BUN 16 5 - 25 mg/dL LAB CHEMISTRY METHOD 05/17/2024 8:26 AM [facility] Creatinine 0.70 0.50 - 1.10 mg/dL LAB CHEMISTRY METHOD 05/17/2024 8:26 AM EDT [facility] eGFR 93 >=60 mL/min/1. 73m2 LAB CHEMISTRY METHOD 05/17/2024 8:26 AM EDT [facility] Comment:Calculation based on the??Chronic Kidney Disease Epidemiology Collaboration (CKD-EPI) equation refit??without adjustment for race. BUN/Creatinine Ratio 22.9 LAB CHEMISTRY METHOD 05/17/2024 8:26 AM EDT [facility] Calcium 9.5 8.5 - 10.5 mg/dL LAB CHEMISTRY METHOD 05/17/2024 8:26 AM EDT [facility] Blood Venous blood specimen / Unknown Venipuncture / Unknown 05/17/2024 6:42 AM EDT 05/17/2024 7:24 AM EDT Key Kirby NP LAB BLOOD ORDERABLES Final Res ult [facility] [address] [place] [address], [place] [phone] * SST tube (05/17/2024 6:35 AM EDT) Extra Tube Hold for add-ons. 05/17/2024 10:01 AM EDT [facility] Comment:Auto resulted. Blood Venous blood specimen / Unknown 05/17/2024 6:35 AM EDT 05/17/2024 8:59 AM EDT Garcia Chowdhury MD LAB BLOOD ORDERABLES Final Re sult [facility] [address] [place] [address], [place] [phone] * Procalcitonin (05/16/2024 2:47 PM EDT) Procalcitonin <0.02 <=0.16 ng/mL LAB CHEMISTRY METHOD 05/17/2024 10:40 AM EDT [facility] Blood Venous blood specimen / Unknown Venipuncture / Unknown 05/16/2024 2:47 PM EDT 05/16/2024 3:08 PM EDT [facility] - 05/17/2024 10:40 AM EDT Procalcitonin > 2.00 ng/ml: Procalcitonin Levels above [...] any concentrations <2.0 ng/mL are obtained. us Key Kirby [employer]END[employer] LAB BLOOD ORDERABLES Final Res ult [facility] [address] [place] [address], * (ABNORMAL) Anti-Xa - Every 6 Hours (05/16/2024 2:47 PM EDT) [facility] Heparin Anti-Xa <0.04(L) 0.30 - 0.70 I Unit/mL LAB COAGULATION METHOD 05/16/2024 3:23 PM EDT [facility] Blood Venous blood specimen / Unknown Venipuncture / Unknown 05/16/2024 2:47 PM EDT 05/16/2024 3:08 PM EDT Narrative [facility] - 05/16/2024 3:23 PM EDT Therapeutic range listed is for Unfractionated Heparin. LMW Heparin therapeutic range: 0.50-1.20 IU/mL Jl Meza MD LAB BLOOD ORDERABLES Lalitha l Result [facility] [address] [place] [address], [place] [phone] * Creatine kinase and CKMB (05/16/2024 12:22 PM EDT) Total CK 56 22 - 269 unit/L LAB CHEMISTRY METHOD 05/16/2024 1:39 PM EDT [facility] CK-MB 1.5 1.0 - 3.6 ng/mL LAB CHEMISTRY METHOD 05/16/2024 1:39 PM EDT [facility] CK-MB Index 0.0 0.0 - 5.0 LAB CHEMISTRY METHOD 05/16/2024 1:39 PM EDT [facility] Blood Venous blood specimen / Unknown Venipuncture / Unknown 05/16/2024 12:22 PM EDT 05/16/2024 12:29 PM EDT Key Kirby NP LAB BLOOD ORDERABLES Final Res ult [facility] [address] [place] [address], [place] [phone] * Creatine kinase (05/16/2024 12:22 PM EDT) Total CK 56 22 - 269 unit/L LAB CHEMISTRY METHOD 05/16/2024 1:39 PM EDT [facility] Blood Venous blood specimen / Unknown Venipuncture / Unknown 05/16/2024 12:22 PM EDT 05/16/2024 12:29 PM EDT us Key Kirby G[employer]HOU[employer] ATTENDANT LAB BLOOD ORDERABLES Final Res ult [facility] [address] [place] [address], [place] [phone] * (ABNORMAL) CBC auto differential (05/16/2024 12:22 PM EDT) WBC 6.7 4.8 - 10.8 K/mcL LAB HEMETOLOGY METHOD 05/16/2024 12:42 PM EDT [facility] RBC 4.10 3.80 - 4.80 M/[facility] LAB HEMETOLOGY METHOD 05/16/2024 12:42 PM EDT [facility] Hemoglobin 11.3(L) 11.5 - 16.0 g/dL LAB HEMETOLOGY METHOD 05/16/2024 12:42 PM EDT [facility] Hematocrit 36.4 35.0 - 47.0 % LAB HEMETOLOGY METHOD 05/16/2024 12:42 PM EDT [facility] MCV 87.9 79.0 - 98.0 FL LAB HEMETOLOGY METHOD 05/16/2024 12:42 PM EDT [facility] MCH 27.3 27.0 - 32.0 pcg LAB HEMETOLOGY METHOD 05/16/2024 12:42 PM EDT [facility] MCHC 31.0(L) 32.0 - 37.0 g/dL LAB HEMETOLOGY METHOD 05/16/2024 12:42 PM EDT [facility] RDW 15.4(H) 11.0 - 15.0 % LAB HEMETOLOGY METHOD 05/16/2024 12:42 PM EDT [facility] Platelets 255 130 - 400 K/mcL LAB HEMETOLOGY METHOD 05/16/2024 12:42 PM [facility] MPV 12.2(H) 7.0 - 11.0 FL LAB HEMETOLOGY METHOD 05/16/2024 12:42 PM [facility] NRBC 0.0 <1.0 % LAB HEMETOLOGY METHOD 05/16/2024 12:42 PM [facility] NRBC Absolute 0.00 <0.10 K/mcL LAB HEMETOLOGY METHOD 05/16/2024 12:42 PM [facility] Neutrophils Relative 65.6 % LAB HEMETOLOGY METHOD 05/16/2024 12:42 PM [facility] Lymphocytes Relative 24.1 % LAB HEMETOLOGY METHOD 05/16/2024 12:42 PM [facility] Monocytes Relative 4.8 % LAB HEMETOLOGY METHOD 05/16/2024 12:42 PM [facility] Eosinophils Relative 4.3 % LAB HEMETOLOGY METHOD 05/16/2024 12:42 PM [facility] Basophils Relative 0.9 % LAB HEMETOLOGY METHOD 05/16/2024 12:42 PM [facility] Immature Granulocytes Relative 0.3 % LAB HEMETOLOGY METHOD 05/16/2024 12:42 PM [facility] Neutrophils Absolute 4.40 1.50 - 7.00 K/mcL LAB HEMETOLOGY METHOD 05/16/2024 12:42 PM [facility] Lymphocytes Absolute 1.62 1.00 - 5.00 K/mcL LAB HEMETOLOGY METHOD 05/16/2024 12:42 PM [facility] Monocytes Absolute 0.32 0.20 - 1.00 K/mcL LAB HEMETOLOGY METHOD 05/16/2024 12:42 PM [facility] Eosinophils Absolute 0.29 0.00 - 0.50 K/mcL LAB HEMETOLOGY METHOD 05/16/2024 12:42 PM EDT [facility] Basophils Absolute 0.06 0.00 - 0.20 K/mcL LAB HEMETOLOGY METHOD 05/16/2024 12:42 PM EDT [facility] Immature Granulocytes Absolute 0.02 0.00 - 0.03 K/mcL LAB HEMETOLOGY METHOD 05/16/2024 12:42 PM EDT [facility] Blood Venous blood specimen / Unknown Venipuncture / Unknown 05/16/2024 12:22 PM EDT 05/16/2024 12:29 PM EDT us Adam Anderson MD LAB BLOOD ORDERABLES Final Re sult [facility] [address] [place] [address], * (ABNORMAL) Lipid panel with reflex to direct LDL (05/16/2024 12:22 PM EDT) Cholesterol 187 0 - 200 mg/dL LAB CHEMISTRY METHOD 05/16/2024 1:39 PM EDT [facility] Triglycerides 75 0 - 150 mg/dL LAB CHEMISTRY METHOD 05/16/2024 1:39 PM EDT [facility] HDL 51 >=40 mg/dL LAB CHEMISTRY METHOD 05/16/2024 1:39 PM EDT [facility] LDL Calculated 121(H) 0 - 100 mg/dL LAB CHEMISTRY METHOD 05/16/2024 1:39 PM EDT [facility] VLDL Cholesterol Flaquito 15 mg/dL LAB CHEMISTRY METHOD 05/16/2024 1:39 PM EDT [facility] Non HDL Chol. (LDL+VLDL) 136 <145 mg/dL LAB CHEMISTRY METHOD 05/16/2024 1:39 PM EDT [facility] Chol/HDL Ratio 3.7 0.0 - 4.4 LAB CHEMISTRY METHOD 05/16/2024 1:39 PM [facility] Blood Venous blood specimen / Unknown Venipuncture / Unknown 05/16/2024 12:22 PM EDT 05/16/2024 12:29 PM EDT us Adam Anderson MD LAB BLOOD ORDERABLES Final Re sult [facility] [address] [place] [address], * (ABNORMAL) Basic metabolic panel (05/16/2024 12:22 PM EDT) Sodium 138 133 - 145 mmol/L LAB CHEMISTRY METHOD 05/16/2024 1:28 PM [facility] Potassium 3.7 3.5 - 5.5 mmol/L LAB CHEMISTRY METHOD 05/16/2024 1:28 PM [facility] Chloride 107 96 - 110 mmol/L LAB CHEMISTRY METHOD 05/16/2024 1:28 PM [facility] CO2 27 21 - 32 mmol/L LAB CHEMISTRY METHOD 05/16/2024 1:28 PM [facility] Anion Gap 4 3 - 11 LAB CHEMISTRY METHOD 05/16/2024 1:28 PM [facility] Glucose 106(H) 70 - 100 mg/dL LAB CHEMISTRY METHOD 05/16/2024 1:28 PM [facility] BUN 13 5 - 25 mg/dL LAB CHEMISTRY METHOD 05/16/2024 1:28 PM [facility] Creatinine 0.62 0.50 - 1.10 mg/dL LAB CHEMISTRY METHOD 05/16/2024 1:28 PM [facility] eGFR 96 >=60 mL/min/1. 73m2 LAB CHEMISTRY METHOD 05/16/2024 1:28 PM [facility] Comment:Calculation based on the??Chronic Kidney Disease Epidemiology Collaboration (CKD-EPI) equation refit??without adjustment for race. BUN/Creatinine Ratio 21.0 LAB CHEMISTRY METHOD 05/16/2024 1:28 PM EDT [facility] Calcium 9.1 8.5 - 10.5 mg/dL LAB CHEMISTRY METHOD 05/16/2024 1:28 PM EDT [facility] Blood Venous blood specimen / Unknown Venipuncture / Unknown 05/16/2024 12:22 PM EDT 05/16/2024 12:29 PM EDT us Adam Anderson MD LAB BLOOD ORDERABLES Final Re sult Performing Organization Address [facility]/ZIP Co de Phone Number [facility] [address] [place] [address], [place] [phone] * (ABNORMAL) Troponin I high sensitivity (05/16/2024 12:22 PM EDT) [facility] High Sensitivity Troponin I 116(HH) <=54 ng/L LAB CHEMISTRY METHOD 05/16/2024 1:23 PM EDT [facility] Blood Venous blood specimen / Unknown Venipuncture / Unknown 05/16/2024 12:22 PM EDT 05/16/2024 12:29 PM EDT Narrative [facility] - 05/16/2024 1:23 PM EDT High levels of biotin in samples may falsely decrease hsTroponin values. ??Use caution when interpreting hsTroponin results in patients taking biotin who exhibit renal impairment (eGFR <60) or in patients taking more than 20 mg/day of biotin. us Adam Anderson MD LAB BLOOD ORDERABLES Final Re sult Performing Organization Address [facility]/ZIP Co de Phone Number [facility] [address] [place] [address], [place] [phone] * (ABNORMAL) Anti-Xa - Every 6 Hours (05/16/2024 8:53 AM EDT) Heparin Anti-Xa 0.23(L) 0.30 - 0.70 I Unit/mL LAB COAGULATION METHOD 05/16/2024 9:47 AM EDT [facility] Blood Venous blood specimen / Unknown Venipuncture / Unknown 05/16/2024 8:53 AM EDT 05/16/2024 9:34 AM EDT Narrative [facility] - 05/16/2024 9:47 AM EDT Therapeutic range listed is for Unfractionated Heparin. LMW Heparin therapeutic range: 0.50-1.20 IU/mL Jl Meza MD LAB BLOOD ORDERABLES Lalitha l Result Performing Organization Address [facility] Co de Phone Number [facility] [address] [place] [address], * (ABNORMAL) Anti-Xa - STAT (05/16/2024 2:58 AM EDT) Heparin Anti-Xa <0.04(L) 0.30 - 0.70 I Unit/mL LAB COAGULATION METHOD 05/16/2024 3:17 AM EDT [facility] Blood Venous blood specimen / Unknown Venipuncture / Unknown 05/16/2024 2:58 AM EDT 05/16/2024 3:03 AM EDT Narrative [facility] - 05/16/2024 3:17 AM EDT Therapeutic range listed is for Unfractionated Heparin. LMW Heparin therapeutic range: 0.50-1.20 IU/mL Fatoumaat KHANNA LAB BLOOD ORDERABLES Final Resu lt Performing Organization Address [facility]/ZIP Co de Phone Number [facility] [address] [place] [address], * (ABNORMAL) Activated Partial Thromboplastin Time - STAT (05/16/2024 2:58 AM EDT) [facility] aPTT 57.1(H) 24.1 - 39.3 sec LAB COAGULATION METHOD 05/16/2024 3:18 AM EDT [facility] Blood Venous blood specimen / Unknown Venipuncture / Unknown 05/16/2024 2:58 AM EDT 05/16/2024 3:03 AM EDT Fatoumata KHANNA LAB BLOOD ORDERABLES Final Resu lt Performing Organization Address [facility]/ZIP Co de Phone Number [facility] [address] [place] [address], [place] [phone] * (ABNORMAL) Prothrombin time with INR (05/16/2024 2:58 AM EDT) [facility] Protime 34.3(H) 10.6 - 13.9 sec LAB COAGULATION METHOD 05/16/2024 3:13 AM EDT [facility] INR 2.8 LAB COAGULATION METHOD 05/16/2024 3:13 AM EDT [facility] Blood Venous blood specimen / Unknown Venipuncture / Unknown 05/16/2024 2:58 AM EDT 05/16/2024 3:03 AM EDT Fatoumata KHANNA LAB BLOOD ORDERABLES Final Resu lt Performing Organization Address City/[facility]/ZIP Co de Phone Number [facility] [address] [place] [address], [place] [phone] * ECG 12 lead (05/16/2024 2:04 AM EDT) [facility] Ventricular Rate ECG 66 BPM GEMUSE Atrial Rate 66 BPM GEMUSE P-R Interval 146 ms GEMUSE QRS Duration 78 ms GEMUSE Q-T Interval 424 ms GEMUSE QTc 444 ms GEMUSE P Wave Gurdon 39 degrees GEMUSE R Gurdon 14 degrees GEMUSE T Gurdon 64 degrees GEMUSE ECG Interpretation Normal sinus rhythm When compared with ECG of 26-MAR-2025 23:55, (unconfirmed) No significant change was found Confirmed by QUINCY LARSON ([id number]) on 05/16/2024 8:58:11 PM GEMUSE 05/16/2024 2:04 AM EDT 05/16/2024 8:58 PM EDT Hectorstas Castorena MD ECG ORDERABLES Final Result Performing Organization Address [facility] de Phone Number GEMUSE * (ABNORMAL) Troponin I high sensitivity (05/16/2024 1:53 AM EDT) High Sensitivity Troponin I 314(HH) <=54 ng/L LAB CHEMISTRY METHOD 05/16/2024 2:39 AM EDT [facility] Blood Venous blood specimen / Unknown Venipuncture / Unknown 05/16/2024 1:53 AM EDT 05/16/2024 2:12 AM EDT Narrative [facility] - 05/16/2024 2:39 AM EDT High levels of biotin in samples may falsely decrease hsTroponin values. ??Use caution when interpreting hsTroponin results in patients taking biotin who exhibit renal impairment (eGFR <60) or in patients taking more than 20 mg/day of biotin. Hectorstas Castorena MD LAB BLOOD ORDERABLES Final Resu lt Performing Organization Address [facility] de Phone Number [facility] [address] [place] [address], [place] [phone] * XR Chest 2 Views (05/16/2024 1:11 AM EDT) Anatomical Region Laterality Modality Body Radiographic Lizbeth ging 05/16/2024 10:0 3 AM EDT Impressions 05/16/2024 10:07 AM EDT Persistently distended intrathoracic stomach status post gastric pull-through procedure is suggestive of pyloric obstruction. -------- FINAL REPORT -------- Dictated By: Audra Burgos Dictated Date: 05/16/2024 10:03 ET Assigned Physician: Audra Burgos Reviewed and Electronically Signed By: Audra Burgos Signed Date: 05/16/2024 10:07 ET Workstation ID: [id number] Transcribed By: Self Edit Transcribed Date: 05/16/2024 10:03 ET Narrative 05/16/2024 10:07 AM EDT INDICATION: Chest pain FINDINGS: Two views of the chest were obtained. Compared to multiple prior studies most recent from May 02, 2024. Lung goodwin are clear. Cardiomediastinal silhouette is normal in size and shape. Midline sternotomy with aortic valve replacement. Bony structures are within normal limits for the patient's age. Distended intrathoracic stomach with debris. History of prior esophagectomy with gastric pull through procedure. Findings suggest pyloric obstruction. Procedure Note Audra Burgos MD - 05/16/2024 INDICATION: Chest pain FINDINGS: Two views of the chest were obtained. Compared to multiple priorstudies most recent from May 02, 2024. Lung goodwin are clear. Cardiomediastinal silhouette is normal in size and shape. Midlinesternotomy with aortic valve replacement. Bony structures are within normal limits for the patient's age. Distended intrathoracic stomach with debris. History of prioresophagectomy with gastric pull through procedure. Findings suggestpyloric obstruction. IMPRESSION: Persistently distended intrathoracic stomach status post gastricpull-through procedure is suggestive of pyloric obstruction. -------- FINAL REPORT -------- Dictated By: uAdra Burgos Dictated Date: 05/16/2024 10:03 ET Assigned Physician: Audra Burgos Reviewed and Electronically Signed By: Audra Burgos Signed Date: 05/16/2024 10:07 ET Workstation ID: [id number] Transcribed By: Self Edit Transcribed Date: 05/16/2024 10:03 ET Hector Carmen Castorena MD IMG XR PROCEDURES Final Result * ECG 12 lead (05/15/2024 11:55 PM EDT) [facility] Ventricular Rate ECG 75 BPM GEMUSE Atrial Rate 75 BPM GEMUSE P-R Interval 158 ms GEMUSE QRS Duration 72 ms GEMUSE Q-T Interval 402 ms GEMUSE QTc 448 ms GEMUSE P Wave Gurdon 55 degrees GEMUSE R Gurdon 20 degrees GEMUSE T Gurdon 67 degrees GEMUSE ECG Interpretation Normal sinus rhythm When compared with ECG of 03-MAY-2024 00:05, No significant change was found Confirmed by QUINCY LARSON ([id number]) on 05/16/2024 8:56:34 PM GEMUSE 05/15/2024 11:5 5 PM EDT 05/16/2024 8:56 PM EDT Hector Carmen Castorena MD ECG ORDERABLES Final Result GEMUSE * (ABNORMAL) CBC auto differential (05/15/2024 11:49 PM EDT) [facility] WBC 9.6 4.8 - 10.8 K/mcL LAB HEMETOLOGY METHOD 05/16/2024 12:13 AM EDT [facility] RBC 4.30 3.80 - 4.80 M/mcL LAB HEMETOLOGY METHOD 05/16/2024 12:13 AM [facility] Hemoglobin 11.7 11.5 - 16.0 g/dL LAB HEMETOLOGY METHOD 05/16/2024 12:13 AM [facility] Hematocrit 37.3 35.0 - 47.0 % LAB HEMETOLOGY METHOD 05/16/2024 12:13 AM [facility] MCV 86.3 79.0 - 98.0 FL LAB HEMETOLOGY METHOD 05/16/2024 12:13 AM [facility] MCH 27.1 27.0 - 32.0 pcg LAB HEMETOLOGY METHOD 05/16/2024 12:13 AM [facility] MCHC 31.4(L) 32.0 - 37.0 g/dL LAB HEMETOLOGY METHOD 05/16/2024 12:13 AM [facility] RDW 15.3(H) 11.0 - 15.0 % LAB HEMETOLOGY METHOD 05/16/2024 12:13 AM [facility] Platelets 272 130 - 400 K/mcL LAB HEMETOLOGY METHOD 05/16/2024 12:13 AM [facility] MPV 12.1(H) 7.0 - 11.0 FL LAB HEMETOLOGY METHOD 05/16/2024 12:13 AM [facility] NRBC 0.0 <1.0 % LAB HEMETOLOGY METHOD 05/16/2024 12:13 AM [facility] NRBC Absolute 0.00 <0.10 K/mcL LAB HEMETOLOGY METHOD 05/16/2024 12:13 AM [facility] Neutrophils Relative 72.4 % LAB HEMETOLOGY METHOD 05/16/2024 12:13 AM [facility] Lymphocytes Relative 20.2 % LAB HEMETOLOGY METHOD 05/16/2024 12:13 AM [facility] Monocytes Relative 3.9 % LAB HEMETOLOGY METHOD 05/16/2024 12:13 AM [facility] Eosinophils Relative 2.6 % LAB HEMETOLOGY METHOD 05/16/2024 12:13 AM [facility] Basophils Relative 0.6 % LAB HEMETOLOGY METHOD 05/16/2024 12:13 AM [facility] Immature Granulocytes Relative 0.3 % LAB HEMETOLOGY METHOD 05/16/2024 12:13 AM [facility] Neutrophils Absolute 6.91 1.50 - 7.00 K/mcL LAB HEMETOLOGY METHOD 05/16/2024 12:13 AM [facility] Lymphocytes Absolute 1.93 1.00 - 5.00 K/mcL LAB HEMETOLOGY METHOD 05/16/2024 12:13 AM EDT [facility] Monocytes Absolute 0.37 0.20 - 1.00 K/mcL LAB HEMETOLOGY METHOD 05/16/2024 12:13 AM EDT [facility] Eosinophils Absolute 0.25 0.00 - 0.50 K/mcL LAB HEMETOLOGY METHOD 05/16/2024 12:13 AM EDT [facility] Basophils Absolute 0.06 0.00 - 0.20 K/[facility] LAB HEMETOLOGY METHOD 05/16/2024 12:13 AM EDT [facility] Immature Granulocytes Absolute 0.03 0.00 - 0.03 K/[facility] LAB HEMETOLOGY METHOD 05/16/2024 12:13 AM EDT [facility] Blood Venous blood specimen / Unknown Venipuncture / Unknown 05/15/2024 11:49 PM EDT 05/16/2024 12:08 AM EDT us Hector Castorena MD LAB BLOOD ORDERABLES Final Resu lt [facility] [address] [place] [address], * B-type natriuretic peptide (05/15/2024 11:49 PM EDT) BNP 77 <=100 pcg/mL LAB CHEMISTRY METHOD 05/16/2024 12:41 AM EDT [facility] Blood Venous blood specimen / Unknown Venipuncture / Unknown 05/15/2024 11:49 PM EDT 05/16/2024 12:07 AM EDT us Hector Castorena MD LAB BLOOD ORDERABLES Final Resu lt [facility] [address] [place] [address], [place] [phone] * (ABNORMAL) Magnesium (05/15/2024 11:49 PM EDT) [facility] Magnesium 1.7(L) 1.9 - 2.6 mg/dL LAB CHEMISTRY METHOD 05/16/2024 12:42 AM EDT [facility] Blood Venous blood specimen / Unknown Venipuncture / Unknown 05/15/2024 11:49 PM EDT 05/16/2024 12:07 AM EDT us Hector Castorena MD LAB BLOOD ORDERABLES Final Resu lt [facility] [address] [place] [address], [place] [phone] * Lipase (05/15/2024 11:49 PM EDT) [facility] Lipase 29 13 - 75 unit/L LAB CHEMISTRY METHOD 05/16/2024 12:42 AM EDT [facility] Blood Venous blood specimen / Unknown Venipuncture / Unknown 05/15/2024 11:49 PM EDT 05/16/2024 12:07 AM EDT us Hector Castorena MD LAB BLOOD ORDERABLES Final Resu lt [facility] [address] [place] [address], [place] [phone] * (ABNORMAL) Comprehensive metabolic panel (05/15/2024 11:49 PM EDT) [facility] Sodium 143 133 - 145 mmol/L LAB CHEMISTRY METHOD 05/16/2024 12:42 AM EDT [facility] Potassium 4.1 3.5 - 5.5 mmol/L LAB CHEMISTRY METHOD 05/16/2024 12:42 AM EDT [facility] Chloride 111(H) 96 - 110 mmol/L LAB CHEMISTRY METHOD 05/16/2024 12:42 AM [facility] CO2 23 21 - 32 mmol/L LAB CHEMISTRY METHOD 05/16/2024 12:42 AM [facility] Anion Gap 9 3 - 11 LAB CHEMISTRY METHOD 05/16/2024 12:42 AM [facility] Glucose 108(H) 70 - 100 mg/dL LAB CHEMISTRY METHOD 05/16/2024 12:42 AM [facility] BUN 17 5 - 25 mg/dL LAB CHEMISTRY METHOD 05/16/2024 12:42 AM [facility] Creatinine 0.56 0.50 - 1.10 mg/dL LAB CHEMISTRY METHOD 05/16/2024 12:42 AM [facility] eGFR 98 >=60 mL/min/1. 73m2 LAB CHEMISTRY METHOD 05/16/2024 12:42 AM [facility] Comment:Calculation based on the??Chronic Kidney Disease Epidemiology Collaboration (CKD-EPI) equation refit??without adjustment for race. BUN/Creatinine Ratio 30.4 LAB CHEMISTRY METHOD 05/16/2024 12:42 AM [facility] Calcium 9.6 8.5 - 10.5 mg/dL LAB CHEMISTRY METHOD 05/16/2024 12:42 AM [facility] AST (SGOT) 22 10 - 42 unit/L LAB CHEMISTRY METHOD 05/16/2024 12:42 AM [facility] ALT (SGPT) 20 10 - 60 unit/L LAB CHEMISTRY METHOD 05/16/2024 12:42 AM [facility] Alkaline Phosphatase 86 42 - 121 unit/L LAB CHEMISTRY METHOD 05/16/2024 12:42 AM [facility] Total Protein 7.2 6.0 - 8.0 g/dL LAB CHEMISTRY METHOD 05/16/2024 12:42 AM [facility] Albumin 3.7 3.2 - 5.0 g/dL LAB CHEMISTRY METHOD 05/16/2024 12:42 AM EDT [facility] Total Bilirubin 0.3 0.0 - 1.4 mg/dL LAB CHEMISTRY METHOD 05/16/2024 12:42 AM EDT [facility] Blood Venous blood specimen / Unknown Venipuncture / Unknown 05/15/2024 11:49 PM EDT 05/16/2024 12:07 AM EDT Hector Castorena MD LAB BLOOD ORDERABLES Final Resu lt Performing Organization Address [facility]/ZIP Co de Phone Number [facility] [address] [place] [address], [place] [phone] * (ABNORMAL) Troponin I high sensitivity (05/15/2024 11:49 PM EDT) [facility] High Sensitivity Troponin I 285(HH) <=54 ng/L LAB CHEMISTRY METHOD 05/16/2024 12:49 AM EDT [facility] Blood Venous blood specimen / Unknown Venipuncture / Unknown 05/15/2024 11:49 PM EDT 05/16/2024 12:07 AM EDT Narrative [facility] - 05/16/2024 12:49 AM EDT High levels of biotin in samples may falsely decrease hsTroponin values. ??Use caution when interpreting hsTroponin results in patients taking biotin who exhibit renal impairment (eGFR <60) or in patients taking more than 20 mg/day of biotin. us Hector Castorena MD LAB BLOOD ORDERABLES Final Resu lt Performing Organization Address [facility]/ZIP Co de Phone Number [facility] [address] [place] [address], [place] [phone] documented in this encounter Visit Diagnoses Diagnosis NSTEMI (non-ST elevated myocardial infarction) ([facility])- Primary Acute myocardial infarction, subendocardial infarction, episode of care unspecified Elevated troponin Other abnormal blood chemistry NSTEMI (non-ST elevated myocardial infarction) ([facility]) Acute myocardial infarction, subendocardial infarction, episode of care unspecified 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 History of colon polyps History of esophageal cancer Personal history of malignant neoplasm of esophagus Benign essential HTN H/O mitral valve replacement with mechanical valve documented in this encounter Admitting Diagnoses Diagnosis NSTEMI (non-ST elevated myocardial infarction) ([facility]) Acute myocardial infarction, subendocardial infarction, episode of care unspecified documented in this encounter Administered Medications Inactive Administered Medications - up to 3 most recent administrations Medication Order MAR Action Action Date Dose Rate Site dilTIAZem CD (CARDIZEM CD) 24 hr capsule 120 mg 120 mg, oral, Daily, First dose on Sandi 05/16/24 at 1448, Do not crush, chew, or split. Given 05/17/2024 11:31 AM EDT 120 mg Given 05/16/2024 3:50 PM EDT 120 mg heparin (UFH) bolus from infusion 1,986 Units 1,986 Units (30 Units/kg ? 66.2 kg), intravenous, Every 6 hours PRN, Per current Anti-Xa result, Starting on Sandi 05/16/24 at 0653, Bolus from infusion. Suggested bolus infusion time is over 10 minutes., Indication: Treatment of Cardiac / ACS Bolus from Bag 05/16/2024 10:17 AM EDT 1,986 Units heparin (UFH) bolus from infusion 3,972 Units 3,972 Units (60 Units/kg ? 66.2 kg), intravenous, Once, On Sandi 05/16/24 at 0254, For 1 dose, *Initial bolus for patients LESS than 66.6 kg* *Maximum dose 4000 units* Bolus from infusion. Suggested bolus infusion time is over 10 minutes., Indication: Treatment of Cardiac / ACS Bolus from Bag 05/16/2024 3:41 AM EDT 3,972 Units heparin (UFH) bolus from infusion 3,972 Units 3,972 Units (60 Units/kg ? 66.2 kg), intravenous, Every 6 hours PRN, Per current Anti-Xa result, Starting on Sandi 05/16/24 at 0653, Bolus from infusion. Suggested bolus infusion time is over 10 minutes., Indication: Treatment of Cardiac / ACS Bolus from Bag 05/16/2024 3:42 PM EDT 3,972 Units heparin infusion 100 units/mL in D5W 12 Units/kg/hr ? 66.2 kg (7.944 mL/hr, rounded to 7.9 mL/hr), intravenous, Continuous, Starting on Sandi 05/16/24 at 0254 New Bag 05/16/2024 3:45 PM EDT 18 Units/kg/hr 11.9 mL/hr Rate/Dose Change 05/16/2024 10:13 AM EDT 14 Units/kg/hr 9. 3 mL/hr New Bag 05/16/2024 3:42 AM EDT 12 Units/kg/hr 7.9 mL/hr LORazepam (ATIVAN) tablet 0.5 mg 0.5 mg, oral, Once, On Sandi 05/16/24 at 0150, For 1 dose Given 05/16/2024 2:21 AM EDT 0.5 mg magnesium sulfate 2 gram/50 mL (4 %) IVPB 2 g 2 g, intravenous, at 25 mL/hr, Administer over 2 Hours, Once, On Sandi 05/16/24 at 0201, For 1 dose New Bag 05/16/2024 2:21 AM EDT 2 g 25 mL/hr pantoprazole (PROTONIX) EC tablet 40 mg 40 mg, oral, Every morning before breakfast, First dose on Mon05/17/24 at 0700, Do not crush, chew, or split. Given 05/17/2024 6:03 AM EDT 40 mg Patient is on: warfarin (COUMADIN) one time dosing *This is a reminder to check that a warfarin order is placed for today* perflutren lipid microsphere (DEFINITY) 1.3 mL in sodium chloride 0.9% 8.7 mL injection 10 mL, intravenous, Administer over 10 Minutes, Once in imaging, Starting on Mon05/16/24 at 1639, For 1 dose, CV Medication Orders Given 05/17/2024 9:26 AM EDT 10 mL regadenoson (LEXISCAN) injection 0.4 mg 0.4 mg, intravenous, Once in imaging, Starting on Mon05/17/24 at 1020, For 1 dose, CV Medication Orders Given 05/17/2024 10:34 AM EDT 0.4 mg TC-99M tetrofosmin P radio-isotope injection 10.2 millicurie 10.2 millicurie, intravenous, Once in imaging, Starting on Mon05/17/24 at 0934, For 1 dose Given 05/17/2024 9:35 AM EDT 10.2 millicuries TC-99M tetrofosmin P radio-isotope injection 30.2 millicurie 30.2 millicurie, intravenous, Once in imaging, Starting on Mon05/17/24 at 1128, For 1 dose Given 05/17/2024 11:29 AM EDT 30.2 millicuries warfarin (COUMADIN) tablet 2 mg 2 mg, oral, Once, On Mon05/16/24 at 1830, For 1 dose, HAZARDOUS Drug Precautions - Low Risk (Category A/NIOSH Group 3) Reproductive Risk Only: - Single pair of ASTM standard D6978 certified chemotherapy gloves - Eye protection (goggles or face shield) required only with a potential for facial contact (i.e. concern for spitting or vomiting of the dose during or after administration) - Staff at reproductive risk (actively trying to conceive, or may be become , and ): chemo certified gown and an N95 respirator required when crushing meds (crushing of tabs allowed only in closed pouches) or opening of capsules only for allowable dosage forms. IF RECEIVING ENTERAL NUTRITION: Hold tube feeds at least 1 hour before and 1 hour after administration of warfarin., Indication for use of Warfarin: Mechanical MVR (INR: 2.5-3.5) Given 05/16/2024 6:29 PM EDT 2 mg warfarin (COUMADIN) tablet 5 mg 5 mg, oral, Once, On Mon05/17/24 at 1800, For 1 dose, HAZARDOUS Drug Precautions - Low Risk (Category A/NIOSH Group 3) Reproductive Risk Only: - Single pair of ASTM standard [id number] certified chemotherapy gloves - Eye protection (goggles or face shield) required only with a potential for facial contact (i.e. concern for spitting or vomiting of the dose during or after administration) - Staff at reproductive risk (actively trying to conceive, or may be become , and ): chemo certified gown and an N95 respirator required when crushing meds (crushing of tabs allowed only in closed pouches) or opening of capsules only for allowable dosage forms. IF RECEIVING ENTERAL NUTRITION: Hold tube feeds at least 1 hour before and 1 hour after administration of warfarin., Indication for use of Warfarin: Mechanical MVR (INR: 2.5-3.5) documented in this encounter Active and Recently Administered Medications Times are shown in EDT. Scheduled Medication Order 05/15/2024 05/16/2024 05/17/2024 dilTIAZem CD (CARDIZEM CD) 24 hr capsule 120 mg 120 mg, oral, Daily, First dose on Sandi 05/16/24 at 1448, Do not crush, chew, or split. 1550 (Given - Provider: Jihan Rausch RN - Comment: cardiothoracic physiotherapist was in room) 1131 (Given - Provider: LIZZIE Ma) heparin (UFH) bolus from infusion 3,972 Units (COMPLETED) 3,972 Units (60 Units/kg ? 66.2 kg), intravenous, Once, On Sandi 05/16/24 at 0254, For 1 dose, *Initial bolus for patients LESS than 66.6 kg* *Maximum dose 4000 units* Bolus from infusion. Suggested bolus infusion time is over 10 minutes., Indication: Treatment of Cardiac / ACS 034 (Bolus from Bag - Provider: Sujata Alamo RN) LORazepam (ATIVAN) tablet 0.5 mg (COMPLETED) 0.5 mg, oral, Once, On Sandi 05/16/24 at 0150, For 1 dose 022 (Given - Provider: Sujata Alamo RN) magnesium sulfate 2 gram/50 mL (4 %) IVPB 2 g (COMPLETED) 2 g, intravenous, at 25 mL/hr, Administer over 2 Hours, Once, On Sandi 05/16/24 at 0201, For 1 dose 022 (New Bag - Provider: Sujata Alamo RN)034 (Stopped - Provider: Sujata Alamo RN) pantoprazole (PROTONIX) EC tablet 40 mg 40 mg, oral, Every morning before breakfast, First dose on Mon05/17/24 at 0700, Do not crush, chew, or split. 0603 (Given - Provid er: Marva Talbot, RN) Patient is on: warfarin (COUMADIN) one time dosing *This is a reminder to check that a warfarin order is placed for today* perflutren lipid microsphere (DEFINITY) 1.3 mL in sodium chloride 0.9% 8.7 mL injection (COMPLETED) 10 mL, intravenous, Administer over 10 Minutes, Once in imaging, Starting on Mon05/16/24 at 1639, For 1 dose, CV Medication Orders 0926 (Given - Provid er: Pilar Anderson) regadenoson (LEXISCAN) injection 0.4 mg (COMPLETED) 0.4 mg, intravenous, Once in imaging, Starting on Mon05/17/24 at 1020, For 1 dose, CV Medication Orders 1034 (Given - Provid er: Josie Khan) TC-99M tetrofosmin P radio-isotope injection 10.2 millicurie (COMPLETED) 10.2 millicurie, intravenous, Once in imaging, Starting on Mon05/17/24 at 0934, For 1 dose 0935 (Given - Provid er: Dasha Bermudez) TC-99M tetrofosmin P radio-isotope injection 30.2 millicurie (COMPLETED) 30.2 millicurie, intravenous, Once in imaging, Starting on Mon05/17/24 at 1128, For 1 dose 1129 (Given - Provid er: Dasha Bermudez) warfarin (COUMADIN) tablet 2 mg (COMPLETED) 2 mg, oral, Once, On Sandi 05/16/24 at 1830, For 1 dose, HAZARDOUS Drug Precautions - Low Risk (Category A/NIOSH Group 3) Reproductive Risk Only: - Single pair of ASTM standard [id number] certified chemotherapy gloves - Eye protection (goggles or face shield) required only with a potential for facial contact (i.e. concern for spitting or vomiting of the dose during or after administration) - Staff at reproductive risk (actively trying to conceive, or may be become , and ): chemo certified gown and an N95 respirator required when crushing meds (crushing of tabs allowed only in closed pouches) or opening of capsules only for allowable dosage forms. IF RECEIVING ENTERAL NUTRITION: Hold tube feeds at least 1 hour before and 1 hour after administration of warfarin., Indication for use of Warfarin: Mechanical MVR (INR: 2.5-3.5) 1829 (Given - Provider: Karen Jean RN) warfarin (COUMADIN) tablet 5 mg 5 mg, oral, Once, On Mon05/16/24 at 1700, For 1 dose, HAZARDOUS Drug Precautions - Low Risk (Category A/NIOSH Group 3) Reproductive Risk Only: - Single pair of AST standard [id number] certified chemotherapy gloves - Eye protection (goggles or face shield) required only with a potential for facial contact (i.e. concern for spitting or vomiting of the dose during or after administration) - Staff at reproductive risk (actively trying to conceive, or may be become , and ): chemo certified gown and an N95 respirator required when crushing meds (crushing of tabs allowed only in closed pouches) or opening of capsules only for allowable dosage forms. IF RECEIVING ENTERAL NUTRITION: Hold tube feeds at least 1 hour before and 1 hour after administration of warfarin., Indication for use of Warfarin: Mechanical MVR (INR: 2.5-3.5), On hold since Mon05/16/2024 at 1605 until manually unheld 1605 (Held by provider - Provider: Jl Meza MD - Reason: Other)1700 (Dose Auto Held - Provider: Jl Meza MD) 1828 (Unheld by provider - Provider: Automatic Discharge Provider) warfarin (COUMADIN) tablet 5 mg 5 mg, oral, Once, On Mon05/17/24 at 1800, For 1 dose, HAZARDOUS Drug Precautions - Low Risk (Category A/NIOSH Group 3) Reproductive Risk Only: - Single pair of AST standard [id number] certified chemotherapy gloves - Eye protection (goggles or face shield) required only with a potential for facial contact (i.e. concern for spitting or vomiting of the dose during or after administration) - Staff at reproductive risk (actively trying to conceive, or may be become , and ): chemo certified gown and an N95 respirator required when crushing meds (crushing of tabs allowed only in closed pouches) or opening of capsules only for allowable dosage forms. IF RECEIVING ENTERAL NUTRITION: Hold tube feeds at least 1 hour before and 1 hour after administration of warfarin., Indication for use of Warfarin: Mechanical MVR (INR: 2.5-3.5) 1800 (Canceled Entry - Provider: Automatic Discharge Provider - Comment: Automatically canceled at discontinue of medication order) Continuous Medication Order 05/15/2024 05/16/2024 05/17/2024 heparin infusion 100 units/mL in D5W (CANCELED) 12 Units/kg/hr ? 66.2 kg (7.944 mL/hr, rounded to 7.9 mL/hr), intravenous, Continuous, Starting on Sandi 05/16/24 at 0254 0342 (New Bag - Provider: Sujata Alamo RN)1013 (Rate/Dose Change - Provider: Nati Hughes RN)1545 (New Bag - Provider: Jihan Rausch RN - Comment: per protocol and antixia)1800 (Stopped - Provider: Karen Jean RN) PRN Medication Order 05/15/2024 05/16/2024 05/17/2024 heparin (UFH) bolus from infusion 1,986 Units (CANCELED)(Linked Group 1) 1,986 Units (30 Units/kg ? 66.2 kg), intravenous, Every 6 hours PRN, Per current Anti-Xa result, Starting on Sandi 05/16/24 at 0653, Bolus from infusion. Suggested bolus infusion time is over 10 minutes., Indication: Treatment of Cardiac / ACS 1017 (Bolus from Bag - Provi [place]: Nati Hughes RN)154 (See Alternative - Provider: Jihan Rausch RN) heparin (UFH) bolus from infusion 3,972 Units (CANCELED)(Linked Group 1) 3,972 Units (60 Units/kg ? 66.2 kg), intravenous, Every 6 hours PRN, Per current Anti-Xa result, Starting on Sandi 05/16/24 at 0653, Bolus from infusion. Suggested bolus infusion time is over 10 minutes., Indication: Treatment of Cardiac / ACS 1017 (See Alternative - Provider: Nati Hughes RN)1542 (Bolus from Bag - Provider: Jihan Rausch RN - Comment: per antixa result and protocol) Linked Groups Order Group 1: heparin (UFH) bolus from infusion 3,972 Units (CANCELED)Jump to med 3,972 Units (60 Units/kg ? 66.2 kg), intravenous, Every 6 hours PRN, Per current Anti-Xa result, Starting on Sandi 05/16/24 at 0653, Bolus from infusion. Suggested bolus infusion time is over 10 minutes., Indication: Treatment of Cardiac / ACS Or heparin (UFH) bolus from infusion 1,986 Units (CANCELED)Jump to med 1,986 Units (30 Units/kg ? 66.2 kg), intravenous, Every 6 hours PRN, Per current Anti-Xa result, Starting on Sandi 05/16/24 at 0653, Bolus from infusion. Suggested bolus infusion time is over 10 minutes., Indication: Treatment of Cardiac / ACS documented in this encounter Orders Medications Ordered That Andi ht Not Have Been Administered Count Last Ordered Date First Ordered Date Patient is on: warfarin (COU MADIN) one time dosing 1 05/16/2024 warfarin (COUMADIN) tablet 5 mg 2 5 3D DESIGNER Count Last Ordered Date First Orde red Date 3D DESIGNER SWALLOW EVAL AND TREAT 1 05/16/2024 IV Count Last Ordered Date First Orde red Date INSERT PERIPHERAL IV 1 05/16/2024 Admission Count Last Ordered Date First Orde red Date ADMIT TO INPATIENT 1 05/16/2024 Transfer Count Last Ordered Date First Orde red Date ED TO FLOOR BED REQUEST 1 05/16/2024 Discharge Count Last Ordered Date First Orde red Date DISCHARGE PATIENT 1 05/17/2024 documented in this encounter Care Teams Air Crew Supervisor Relationship Specialty Start Date End Date Callum Muñoz MD [address] [place] [id number] PCP - General 03/17/22 documented as of this encounter
--- OUTSIDE RECORDS SUMMARY | 2024-05-21 14:11 | XMS_ITS | Clinical Summary ---
Author Organization [facility] Address [address] [place] [address] Phone Care Team Providers Care Studio Operations Manager Name Role Phone Callum Ritter MD Primary Care Provider [phone] Allergies Active Allergy Reactions Criticality Noted Date Comments Penicillin Unknown Medium 03/01/2024 Medications warfarin (COUMADIN) 4 mg tablet Take 1-2 tablets (4-8 mg total) by mouth 1 (one) time each day with dinner. 4 Active dilTIAZem CD (CARDIZEM CD) 120 mg [...] mouth 1 (one) time each day. Active meclizine (ANTIVERT) 25 mg tablet 1 POR V A ORAL 2-3 TIMES DAILY CUANDO SEA NECESARIO FOR MOTION SICKNESS FOR 90 DAYS 5 Active omeprazole (PriLOSEC) [address] capsule Take 1 capsule (40 mg total) by mouth 1 (one) time each day. Do not crush or chew. 90 each 3 5 05/10/19 26 Active magnesium glycinate 100 mg tablet Take 100 mg by mouth 1 (one) time each day for 5 days. 5 tablet 5 05/23/19 Active Active Problems Patient Care Coordination No te Formatting of this note migh t be different from the original. [employer] Problem Noted Date Diagnosed Date NSTEMI (non-ST elevated myocardial infarction) 0 05/16/2024 Aspiration pneumonia 03/02/2024 Benign essential HTN 03/02/2024 H/O mitral valve replacement with mechanical marques ve 03/02/2024 Encounters Date Type Department Care Team Description 05/16/2024 12:51 AM EDT - 05/17/2024 4:28 PM EDT Hospital Encounter [facility] Intermediate Care Unit [address] [place] [phone] Jl Meza MD Rasul, Yar M, MD Flores, Carlos M, MD Bell, Alistair A, MD NSTEMI (non-ST elevated myocardial infarction) (CMS/HCC) (Primary Dx); Elevated troponin; 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; History of colon polyps; History of esophageal cancer Discharge Disposition: Home or Self Care 05/14/2024 Telephone Gastroenterology - [place] [address] [facility] [address] [place] [phone] Dulce Maria Rosas LPN Anticoagulation (Colonoscopy and EGD on 06/12/24) 05/09/2024 2:20 PM EDT Consult Gastroenterology [facility] [address] [facility] [address] [place] [phone] Kirstie Peter NP 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 (Primary Dx); History of esophageal cancer; History of colon polyps; Gastroesophageal reflux disease without esophagitis 05/09/2024 Telephone Gastroenterology [facility] [address] [place] [phone] Kirstie Peter NP 05/02/2024 10:31 PM EDT - 05/03/2024 1:37 AM EDT Emergency [facility] Emergency [address] [place] [phone] Gale Sandoval MD Acute chest pain (Primary Dx); Hypertensive urgency Discharge Disposition: Home or Self Care 04/24/2024 Telephone Gastroenterology - [place] [facility] [address] [place] [address] Jacobo Pope MD APPOINTMENT 03/02/2024 12:18 AM EST - 03/10/2024 11:39 AM EST Hospital Encounter [facility] Urology Unit [address] [place] [phone] Gale Sandoval MD Jones, Christopher, [...] D esophagitis UPPER GASTROINTESTINAL ENDOSCOPY 08/08/2018 PROCEDURE: AL UPPER GI ENDOSCOPY PERFORMED; COMMENT: severe erosive [...] Mass Index 27.11 05/16/2024 1:13 AM EDT Plan of Treatment Upcoming Encounters Date Type Department Care Team (Late st Contact Info) Description 06/12/2024 12:30 PM EDT Appointment [facility] Endoscopy [address] [place] [phone] Jacobo Pope MD [address] [address] Health Maintenance Due Date Last Done Comments COVID-19 Vaccine (#1) 1960 Hepatitis A Vaccines (1 of 2 - Risk 2-dose series) 1972 Zoster Vaccines (1 of 2) 06/09/2003 Hepatitis B Vaccines (1 of 3 - Risk 3-dose series) 2013 RSV Immunization Patients 60+ Years Old (1 - Risk 60-74 years 1-dose series) 2013 Pneumococcal Vaccine: 50+ Years (2 of 2 - PCV) 01/04/2014 01/04/2013 Colorectal Cancer Screening: Colonoscopy 01/23/2022 Depression Screening 01/23/2022 Hepatitis C Screening 01/23/2022 Medicare Annual Wellness Visit 01/23/2022 Osteoporosis Screening (Bone Density Screening) 01/23/2022 Social Influencers of Health Screening 01/23/2022 DTaP,Tdap,and Td Vaccines (2 - Td or Tdap) 10/24/2023 10/23/2013 Influenza Vaccine (Season Ended) 2024 Breast Cancer Screening 04/24/2025 04/25/19 24, 04/20/2022, 10/30/2018, Additional history exists Falls Risk Assessment 05/17/2025 05/17/2024 Hypertension/CHF/CAD Annual BMP Blood Test 05/17/2025 05/17/2024, 05/16/2024, 05/15/2024, Additional history exists Cholesterol Screening (Lipid Panel) 05/16/2029 05/16/2024 HIB Vaccines Aged Out No longer eligi [...] WITH INR Routine 05/17/2024 6:42 AM EDT BASIC METABOLIC PANEL Routine 05/17/2024 6:42 AM EDT CBC AND DIFFERENTIAL Routine 05/17/2024 6:42 AM EDT SST - GOLD Routine 05/17/2024 6:35 AM EDT EXTRA TUBES Routine 05/17/2024 6:35 AM EDT PROCALCITONIN STAT Add-on 05/16/2024 2:47 PM EDT HEPARIN ANTI XA STAT 05/16/2024 2:47 PM EDT CREATINE KINASE AND CKMB Routine 05/16/2024 12:22 PM EDT CREATINE KINASE STAT 05/16/2024 12:22 PM EDT CBC WITH AUTO DIFFERENTIAL STAT 05/16/2024 12:22 PM EDT LIPID PANEL WITH REFLEX TO DIRECT LDL STAT 05/16/2024 12:22 PM EDT BASIC METABOLIC PANEL STAT 05/16/2024 12:22 PM EDT CBC AND DIFFERENTIAL STAT 05/16/2024 12:22 PM EDT TROPONIN I HIGH SENSITIVITY STAT 05/16/2024 12:22 PM EDT HEPARIN ANTI XA STAT 05/16/2024 8:53 AM EDT HEPARIN ANTI XA STAT 05/16/2024 2:58 AM EDT ACTIVATED PARTIAL THROMBOPLASTIN TIME STAT 05/16/2024 2:58 AM EDT PROTHROMBIN TIME WITH INR STAT 05/16/2024 2:58 AM EDT ECG 12-LEAD STAT 05/16/2024 2:04 AM EDT TROPONIN I HIGH SENSITIVITY STAT 05/16/2024 1:53 AM EDT XR CHEST 2 VIEWS STAT 05/16/2024 1:11 AM EDT ECG 12-LEAD STAT 05/15/2024 11:55 PM EDT CBC WITH AUTO DIFFERENTIAL STAT 05/15/2024 11:49 PM EDT B-TYPE NATRIURETIC PEPTIDE STAT 05/15/2024 11:49 PM EDT MAGNESIUM STAT 05/15/2024 11:49 PM EDT LIPASE STAT 05/15/2024 11:49 PM EDT COMPREHENSIVE METABOLIC PANEL STAT 05/15/2024 11:49 PM EDT CBC AND DIFFERENTIAL STAT 05/15/2024 11:49 PM EDT TROPONIN I HIGH SENSITIVITY STAT 05/15/2024 11:49 PM EDT TROPONIN I HIGH SENSITIVITY STAT 05/03/2024 12:06 AM EDT ECG 12-LEAD STAT 05/03/2024 12:05 AM EDT ECG ANNOTATED 05/03/2024 XR CHEST 2 VIEWS STAT 05/02/2024 11:0 3 PM EDT CBC WITH AUTO DIFFERENTIAL STAT 05/02/2024 10:52 PM EDT B-TYPE NATRIURETIC PEPTIDE STAT 05/02/2024 10:52 PM EDT MAGNESIUM STAT 05/02/2024 10:52 PM EDT LIPASE STAT 05/02/2024 10:52 PM EDT COMPREHENSIVE METABOLIC PANEL STAT 05/02/2024 10:52 PM EDT CBC AND DIFFERENTIAL STAT 05/02/2024 10:52 PM EDT TROPONIN I HIGH SENSITIVITY STAT 05/02/2024 10:52 PM EDT ECG 12-LEAD STAT 05/02/2024 10:45 PM EDT CBC WITH AUTO DIFFERENTIAL Routine 03/10/2024 5:59 [...] Recently Relevant to Health Maintenance Results * ECG-Annotated (05/18/2024) Only the most recent of3 resultswithin the time period is included. us Provider Onbase MD ECG ORDERABLES Final Result * NM LEXISCAN [...] (05/17/2024 9:26 AM EDT) Left Atrium Minor [place] 6.2 cm CV PACS Left Atrium Major [place] 6.3 cm CV PACS LA Area Sys [...] Volume 59 mL CV PACS MV Deceleration Worth 5.1 m/s2 CV PACS E Wave Deceleration [...] CBC auto differential (05/17/2024 6:42 AM EDT) Only the most recent of14 resultswithin the time period is included. WBC 6.2 4.8 - 10.8 K/mcL LAB HEMETOLOGY [facility] RBC 4.40 3.80 - 4.80 M/mcL LAB HEMETOLOGY METHOD 05/17/2024 7:52 AM [facility] Hemoglobin 12.0 11.5 - 16.0 g/dL LAB HEMETOLOGY METHOD 05/17/2024 7:52 AM [facility] Hematocrit 37.7 35.0 - 47.0 % LAB HEMETOLOGY METHOD 05/17/2024 7:[facility] MCV 85.7 79.0 - 98.0 FL LAB HEMETOLOGY METHOD 05/17/2024 7:52 AM [facility] MCH 27.3 27.0 - 32.0 pcg LAB HEMETOLOGY METHOD 05/17/2024 7:52 AM [facility] MCHC 31.8(L) 32.0 - 37.0 g/dL LAB HEMETOLOGY METHOD 05/17/2024 7:52 AM [facility] RDW 15.2(H) 11.0 - 15.0 % LAB HEMETOLOGY METHOD 05/17/2024 7:52 AM [facility] Platelets 255 130 - 400 K/mcL LAB HEMETOLOGY METHOD 05/17/2024 7:52 AM [facility] MPV 13.2(H) 7.0 - 11.0 FL LAB HEMETOLOGY METHOD 05/17/2024 7:52 AM [facility] NRBC 0.0 <1.0 % LAB HEMETOLOGY METHOD 05/17/2024 7:52 AM [facility] NRBC Absolute 0.00 <0.10 K/mcL LAB HEMETOLOGY METHOD 05/17/2024 7:52 AM [facility] Neutrophils Relative 62.4 % LAB HEMETOLOGY METHOD 05/17/2024 7:52 AM [facility] Lymphocytes Relative 24.6 % LAB HEMETOLOGY METHOD 05/17/2024 7:52 AM [facility] Monocytes Relative 6.5 % LAB HEMETOLOGY METHOD 05/17/2024 7:52 AM [facility] Eosinophils Relative 5.4 % LAB HEMETOLOGY METHOD 05/17/2024 7:52 AM [facility] Basophils Relative 0.8 % LAB HEMETOLOGY METHOD 05/17/2024 7:52 AM [facility] Immature Granulocytes Relative 0.3 % LAB HEMETOLOGY METHOD 05/17/2024 7:52 AM [facility] Neutrophils Absolute 3.84 1.50 - 7.00 K/mcL LAB HEMETOLOGY METHOD 05/17/2024 7:52 AM [facility] Lymphocytes Absolute 1.51 1.00 - 5.00 K/mcL LAB HEMETOLOGY METHOD 05/17/2024 7:52 AM [facility] Monocytes Absolute 0.40 0.20 - 1.00 K/mcL LAB HEMETOLOGY METHOD 05/17/2024 7:52 AM [facility] Eosinophils Absolute 0.33 0.00 - 0.50 K/mcL LAB HEMETOLOGY METHOD 05/17/2024 7:52 AM [facility] Basophils Absolute 0.05 0.00 - 0.20 K/[facility] LAB HEMETOLOGY METHOD 05/17/2024 7:52 AM EDT [facility] Immature Granulocytes Absolute 0.02 0.00 - 0.03 K/[facility] LAB HEMETOLOGY METHOD 05/17/2024 7:52 AM EDT [facility] Blood Venous blood specimen / Unknown Venipuncture / Unknown 05/17/2024 6:42 AM EDT 05/17/2024 7:25 AM EDT Key Kirby BOOTH SUPERVISOR LAB BLOOD ORDERABLES Final Res ult Performing Organization Address City/[facility]/ZIP Co de Phone Number [facility] [address] [place] [address], [place] [phone] * (ABNORMAL) Prothrombin time with INR (05/17/2024 6:42 AM EDT) Only the most recent of11 resultswithin the time period is included. Protime 30.5(H) 10.6 - 13.9 sec LAB COAGULATION METHOD 05/17/2024 7:45 AM EDT [facility] INR 2.5 LAB COAGULATION METHOD 05/17/2024 7:45 AM EDT [facility] Blood Venous blood specimen / Unknown Venipuncture / Unknown 05/17/2024 6:42 AM EDT 05/17/2024 7:25 AM EDT us Gildardo Mccabe MD LAB BLOOD ORDERABLES Final Res ult [facility] [address] [place] [address], [place] [phone] * Basic metabolic panel (05/17/2024 6:42 AM EDT) Only the most recent of9 resultswithin the time period is included. Sodium 138 133 - 145 mmol/L LAB CHEMISTRY METHOD 05/17/2024 8:26 AM [facility] Potassium 4.3 3.5 - 5.5 mmol/L LAB CHEMISTRY METHOD 05/17/2024 8:26 AM [facility] Comment:Hemolysis present Chloride 107 96 - 110 mmol/L LAB CHEMISTRY METHOD 05/17/2024 8:26 AM [facility] CO2 24 21 - 32 mmol/L LAB CHEMISTRY METHOD 05/17/2024 8:26 AM [facility] Anion Gap 7 3 - 11 LAB CHEMISTRY METHOD 05/17/2024 8:26 AM [facility] Glucose 96 70 - 100 mg/dL LAB CHEMISTRY METHOD 05/17/2024 8:26 AM [facility] BUN 16 5 - 25 mg/dL LAB CHEMISTRY METHOD 05/17/2024 8:26 AM [facility] Creatinine 0.70 0.50 - 1.10 mg/dL LAB CHEMISTRY METHOD 05/17/2024 8:26 AM [facility] eGFR 93 >=60 mL/min/1. 73m2 LAB CHEMISTRY METHOD 05/17/2024 8:26 AM [facility] Comment:Calculation based on the??Chronic Kidney Disease Epidemiology Collaboration (CKD-EPI) equation refit??without adjustment for race. BUN/Creatinine Ratio 22.9 LAB CHEMISTRY METHOD 05/17/2024 8:26 AM [facility] Calcium 9.5 8.5 - 10.5 mg/dL LAB CHEMISTRY METHOD 05/17/2024 8:26 AM [facility] Blood Venous blood specimen / Unknown Venipuncture / Unknown 05/17/2024 6:42 AM EDT 05/17/2024 7:24 AM EDT us Key Kirby BOOTH SUPERVISOR LAB BLOOD ORDERABLES Final Res ult [facility] [address] [place] [address], [place] [phone] * SST tube (05/17/2024 6:35 AM EDT) Only the most recent of3 resultswithin the time period is included. Pathologist [facility] Extra Tube Hold for add-ons. 05/17/2024 10:01 AM EDT [facility] Comment:Auto resulted. Blood Venous blood specimen / Unknown 05/17/2024 6:35 AM EDT 05/17/2024 8:59 AM EDT us Garcia Chowdhury MD LAB BLOOD ORDERABLES Final Re sult [facility] [address] [place] [address], * Procalcitonin (05/16/2024 2:47 PM EDT) Only the most recent of2 resultswithin the time period is included. Pathologist [facility] Procalcitonin <0.02 <=0.16 ng/mL LAB CHEMISTRY METHOD 05/17/2024 10:40 AM EDT [facility] Blood Venous blood specimen / Unknown Venipuncture / Unknown 05/16/2024 2:47 PM EDT 05/16/2024 3:08 PM EDT Narrative [facility] - 05/17/2024 10:40 AM EDT Procalcitonin [...] if any concentrations <2.0 ng/mL are obtained. Key Kirby BOOTH SUPERVISOR LAB BLOOD ORDERABLES Final Res ult Performing Organization Address [facility]/ZIP Co de Phone Number [facility] [address] [place] [address], * (ABNORMAL) Anti-Xa - Every 6 Hours (05/16/2024 2:47 PM EDT) Only the most recent of3 resultswithin the time period is included. [facility] Heparin Anti-Xa <0.04(L) 0.30 - 0.70 I Unit/mL LAB COAGULATION METHOD 05/16/2024 3:23 PM EDT [facility] Blood Venous blood specimen / Unknown Venipuncture / Unknown 05/16/2024 2:47 PM EDT 05/16/2024 3:08 PM EDT Narrative [facility] - 05/16/2024 3:23 PM EDT Therapeutic range listed is for Unfractionated Heparin. LMW Heparin therapeutic range: 0.50-1.20 IU/mL Jl Meza MD LAB BLOOD ORDERABLES Lalitha l Result Performing Organization Address [facility] Co de Phone Number [facility] [address] [place] [address], * (ABNORMAL) Troponin I high sensitivity (05/16/2024 12:22 PM EDT) Only the most recent of7 resultswithin the time period is included. [facility] High Sensitivity Troponin I 116(HH) <=54 ng/L LAB CHEMISTRY METHOD 05/16/2024 1:23 PM EDT [facility] Blood Venous blood specimen / Unknown Venipuncture / Unknown 05/16/2024 12:22 PM EDT 05/16/2024 12:29 PM EDT Narrative [facility] - 05/16/2024 1:23 PM EDT High levels of biotin in samples may falsely decrease hsTroponin values. ??Use caution when interpreting hsTroponin results in patients taking biotin who exhibit renal impairment (eGFR <60) or in patients taking more than 20 mg/day of biotin. us Adam Anderson MD LAB BLOOD ORDERABLES Final Re sult [facility] [address] [place] [address], [place] [phone] * (ABNORMAL) Lipid panel with reflex to direct LDL (05/16/2024 12:22 PM EDT) Cholesterol 187 0 - 200 mg/dL LAB CHEMISTRY METHOD 05/16/2024 1:39 PM EDT [facility] Triglycerides 75 0 - 150 mg/dL LAB CHEMISTRY METHOD 05/16/2024 1:39 PM EDT [facility] HDL 51 >=40 mg/dL LAB CHEMISTRY METHOD 05/16/2024 1:39 PM EDT [facility] LDL Calculated 121(H) 0 - 100 mg/dL LAB CHEMISTRY METHOD 05/16/2024 1:39 PM EDT [facility] VLDL Cholesterol Fla[place] 15 mg/dL LAB CHEMISTRY METHOD 05/16/2024 1:39 PM EDT [facility] Non HDL Chol. (LDL+VLDL) 136 <145 mg/dL LAB CHEMISTRY METHOD 05/16/2024 1:39 PM EDT [facility] Chol/HDL Ratio 3.7 0.0 - 4.4 LAB CHEMISTRY METHOD 05/16/2024 1:39 PM EDT [facility] Blood Venous blood specimen / Unknown Venipuncture / Unknown 05/16/2024 12:22 PM EDT 05/16/2024 12:29 PM EDT Adam Anderson MD LAB BLOOD ORDERABLES Final Re sult [facility] [address] [place] [address], [place] [phone] * Creatine kinase and CKMB (05/16/2024 12:22 PM EDT) Total CK 56 22 - 269 unit/L LAB CHEMISTRY METHOD 05/16/2024 1:39 PM EDT [facility] CK-MB 1.5 1.0 - 3.6 ng/mL LAB CHEMISTRY METHOD 05/16/2024 1:39 PM EDT [facility] CK-MB Index 0.0 0.0 - 5.0 LAB CHEMISTRY METHOD 05/16/2024 1:39 PM EDT [facility] Blood Venous blood specimen / Unknown Venipuncture / Unknown 05/16/2024 12:22 PM EDT 05/16/2024 12:29 PM EDT us Key Kirby NP LAB BLOOD ORDERABLES Final Res ult [facility] [address] [place] [address], [place] [phone] * Creatine kinase (05/16/2024 12:22 PM EDT) Total CK 56 22 - 269 unit/L LAB CHEMISTRY METHOD 05/16/2024 1:39 PM EDT [facility] Blood Venous blood specimen / Unknown Venipuncture / Unknown 05/16/2024 12:22 PM EDT 05/16/2024 12:29 PM EDT us Key Mirta BOOTH SUPERVISOR LAB BLOOD ORDERABLES Final Res ult Performing Organization Address [facility] Co de Phone Number [facility] [address] [place] [address], [place] [phone] * (ABNORMAL) Activated Partial Thromboplastin Time - STAT (05/16/2024 2:58 AM EDT) aPTT 57.1(H) 24.1 - 39.3 sec LAB COAGULATION METHOD 05/16/2024 3:18 AM EDT [facility] Blood Venous blood specimen / Unknown Venipuncture / Unknown 05/16/2024 2:58 AM EDT 05/16/2024 3:03 AM EDT Fatoumata KHANNA LAB BLOOD ORDERABLES Final Resu lt Performing Organization Address [facility] de Phone Number [facility] [address] [place] [address], [place] [phone] * ECG 12 lead (05/16/2024 2:04 AM EDT) Only the most recent of5 resultswithin the time period is included. Ventricular Rate ECG 66 BPM GEMUSE Atrial Rate 66 BPM GEMUSE P-R Interval 146 ms GEMUSE QRS Duration 78 ms GEMUSE Q-T Interval 424 ms GEMUSE QTc 444 ms GEMUSE P Wave [place] 39 degrees GEMUSE R [place] 14 degrees GEMUSE T [place] 64 degrees GEMUSE ECG Interpretation Normal sinus rhythm When compared with ECG of 15-MAY-2024 23:55, (unconfirmed) No significant change was found Confirmed by QUINCY LARSON ([id number]) on 05/16/2024 8:58:11 PM GEMUSE 05/16/2024 2:04 AM EDT 05/16/2024 8:58 PM EDT us Hector Castorena MD ECG ORDERABLES Final Result Performing Organization Address [facility] Co de Phone Number GEMUSE * XR Chest 2 Views (05/16/2024 1:11 AM EDT) Only the most recent of3 resultswithin the time period is included. Anatomical Region Laterality Modality Body Radiographic Lizbeth ging 05/16/2024 10:0 3 AM EDT Impressions 05/16/2024 10:07 AM EDT Persistently distended intrathoracic stomach status post gastric pull-through procedure is suggestive of pyloric obstruction. -------- FINAL REPORT -------- Dictated By: Audra Burgos Dictated Date: 05/16/2024 10:03 ET Assigned Physician: Audra Burgos Reviewed and Electronically Signed By: Audra Burgos Signed Date: 05/16/2024 10:07 ET Workstation ID: [id number] Transcribed By: Self Edit Transcribed Date: 05/16/2024 10:03 ET Narrative 05/16/2024 10:07 AM EDT INDICATION: Chest pain FINDINGS: Two views of the chest were obtained. Compared to multiple prior studies most recent from May 02, 2024. Lung alexander are clear. Cardiomediastinal silhouette is normal in [...] most recent from May 02, 2024. Lung alexander are clear. Cardiomediastinal silhouette is normal in [...] Signed Date: 05/16/2024 10:07 ET Workstation ID: [id number] Transcribed By: Self Edit Transcribed Date: 05/16/2024 10:03 ET Hector Castorena MD IMG XR PROCEDURES Final Result * B-type natriuretic peptide (05/15/2024 11:49 PM EDT) Only the most recent of2 resultswithin the time period is included. BNP 77 <=100 pcg/mL LAB CHEMISTRY METHOD 05/16/2024 12:41 AM EDT [facility] Blood Venous blood specimen / Unknown Venipuncture / Unknown 05/15/2024 11:49 PM EDT 05/16/2024 12:07 AM EDT [facility] Carmen Castorena MD LAB BLOOD ORDERABLES Final Resu lt Performing Organization Address City/[facility]/ZIP Co de Phone Number [facility] [address] [place] [address], [place] [phone] * (ABNORMAL) Magnesium (05/15/2024 11:49 PM EDT) Only the most recent of3 resultswithin the time period is included. Magnesium 1.7(L) 1.9 - 2.6 mg/dL LAB CHEMISTRY METHOD 05/16/2024 12:42 AM EDT [facility] Blood Venous blood specimen / Unknown Venipuncture / Unknown 05/15/2024 11:49 PM EDT 05/16/2024 12:07 AM EDT [facility] LAB BLOOD ORDERABLES Final Resu lt Performing Organization Address City/[facility]/ZIP Co de Phone Number [facility] [address] [place] [address], [place] [phone] * Lipase (05/15/2024 11:49 PM EDT) Only the most recent of2 resultswithin the time period is included. Lipase 29 13 - 75 unit/L LAB CHEMISTRY METHOD 05/16/2024 12:42 AM [facility] Blood Venous blood specimen / Unknown Venipuncture / Unknown 05/15/2024 11:49 PM EDT 05/16/2024 12:07 AM EDT Hector B Raffaele [facility] LAB BLOOD ORDERABLES Final Resu lt [facility] [address] [place] [address], [place] [phone] * (ABNORMAL) Comprehensive metabolic panel (05/15/2024 11:49 PM EDT) Only the most recent of3 resultswithin the time period is included. Pathologist [facility] Sodium 143 133 - 145 mmol/L LAB CHEMISTRY METHOD 05/16/2024 12:42 AM [facility] Potassium 4.1 3.5 - 5.5 mmol/L LAB CHEMISTRY METHOD 05/16/2024 12:42 AM [facility] Chloride 111(H) 96 - 110 mmol/L LAB CHEMISTRY METHOD 05/16/2024 12:42 AM [facility] CO2 23 21 - 32 mmol/L LAB CHEMISTRY METHOD 05/16/2024 12:42 AM [facility] Anion Gap 9 3 - 11 LAB CHEMISTRY METHOD 05/16/2024 12:42 AM [facility] Glucose 108(H) 70 - 100 mg/dL LAB CHEMISTRY METHOD 05/16/2024 12:42 AM [facility] BUN 17 5 - 25 mg/dL LAB CHEMISTRY METHOD 05/16/2024 12:42 AM [facility] Creatinine 0.56 0.50 - 1.10 mg/dL LAB CHEMISTRY METHOD 05/16/2024 12:42 AM [facility] eGFR 98 >=60 mL/min/1. 73m2 LAB CHEMISTRY METHOD 05/16/2024 12:42 AM [facility] Comment:Calculation based on the??Chronic Kidney Disease Epidemiology Collaboration (CKD-EPI) equation refit??without adjustment for race. BUN/Creatinine Ratio 30.4 LAB CHEMISTRY METHOD 05/16/2024 12:42 AM [facility] Calcium 9.6 8.5 - 10.5 mg/dL LAB CHEMISTRY METHOD 05/16/2024 12:42 AM [facility] AST (SGOT) 22 10 - 42 unit/L LAB CHEMISTRY METHOD 05/16/2024 12:42 AM [facility] ALT (SGPT) 20 10 - 60 unit/L LAB CHEMISTRY METHOD 05/16/2024 12:42 AM [facility] Alkaline Phosphatase 86 42 - 121 unit/L LAB CHEMISTRY METHOD 05/16/2024 12:42 AM [facility] Total Protein 7.2 6.0 - 8.0 g/dL LAB CHEMISTRY METHOD 05/16/2024 12:42 AM [facility] Albumin 3.7 3.2 - 5.0 g/dL LAB CHEMISTRY METHOD 05/16/2024 12:42 AM [facility] Total Bilirubin 0.3 0.0 - 1.4 mg/dL LAB CHEMISTRY METHOD 05/16/2024 12:42 AM [facility] Blood Venous blood specimen / Unknown Venipuncture / Unknown 05/15/2024 11:49 PM EDT 05/16/2024 12:07 AM EDT us Hector Castorena MD LAB BLOOD ORDERABLES Final Resu lt [facility] [address] [place] [address], * (ABNORMAL) Manual differential (03/09/2024 5:52 AM [...] lym LAB HEMETOLOGY METHOD 03/09/2024 7:53 AM EST [facility] Monocytes Absolute Manual 0.44 0.20 - 1.00 K/Phelps [facility] LAB HEMETOLOGY METHOD 03/09/2024 7:53 AM EST [facility] Eosinophils Absolute Manual 0.33 0.00 - 0.50 K/mcL LAB HEMETOLOGY METHOD 03/09/2024 7:53 AM EST [facility] Basophils Absolute Manual 0.22(H) 0.00 - 0.20 K/[facility] LAB HEMETOLOGY METHOD 03/09/2024 7:53 AM EST [facility] Metamyelocytes Absolute Manual 0.11(H) 0.00 - 0.00 K/[facility] LAB HEMETOLOGY METHOD 03/09/2024 7:53 AM EST [facility] Rbc Morphology See comment( A) Consistent with indices, Normal for [place] LAB HEMETOLOGY METHOD 03/09/2024 7:53 AM EST [facility] Comment:RBC: Morphology agre es with CBC Platelet Morphology - WAM See Note(A) Normal LAB HEMETOLOGY METHOD 03/09/2024 7:53 AM [facility] LAB Comment:PLT: Normal Blood Venous blood specimen / Unknown Venipuncture / Unknown 03/09/2024 5:52 AM EST 03/09/2024 6:58 AM EST us Jaxson Lawler MD LAB BLOOD ORDERABLES Final Resul t [facility]) [facility] [address] [place] [address], * Lavender tube (03/08/2024 6:52 AM EST) Only the most recent of4 resultswithin the time period is included. Extra Tube Hold for add-ons. 03/08/2024 9:01 AM EST [facility] Comment:Auto resulted. Blood Venous blood specimen / Unknown Venipuncture / Unknown 03/08/2024 6:52 AM EST 03/08/2024 7:45 AM EST us Jaxson Lawler MD LAB BLOOD ORDERABLES Final Resul t [facility]) [facility] [address] [place] [address], * XR Esophagram (03/07/2024 3:09 PM EST) [...] Date: 03/07/2024 15:27 ET Assigned Physician: Ac Shcneider Reviewed and Electronically Signed By: Ac Schneider Signed Date: 03/08/2024 08:02 ET Workstation ID: [id number] Transcribed By: Self Edit Transcribed Date: 03/07/2024 15:34 ET Resident/PA/BOOTH SUPERVISOR: Arianne Hobbs Narrative 03/08/2024 8:02 AM EST FINDINGS: Double contrast esophagram performed. Exam limited due to patient inability to stand or lay prone. COMPARISON: No prior esophagram imaging HISTORY: Patient is a 68-year-old female with history of aspiration, esophagectomy with gastric pull-through. Label Remover radiographs: None Effervescent crystals were administered orally. [...] with history of aspiration,esophagectomy with gastric pull-through. Label Remover radiographs: None Effervescent crystals were administered orally. [...] Signed Date: 03/08/2024 08:02 ET Workstation ID: [id number] Transcribed By: Self Edit Transcribed Date: 03/07/2024 15:34 ET Resident/PA/BOOTH SUPERVISOR: Arianne Hobbs us Jaxson Lawler MD IMG FLUOROSCOPY PROCEDURES Final Result * (ABNORMAL) C-reactive protein (03/06/2024 5:49 AM EST) Only the most recent of2 resultswithin the time period is included. C-Reactive Protein 9.93(H) <=0.50 mg/dL LAB CHEMISTRY METHOD 03/06/2024 9:56 AM EST [facility] Blood Venous blood specimen / Unknown Venipuncture / Unknown 03/06/2024 5:49 AM EST 03/06/2024 6:54 AM EST us Jaxson Lawler MD LAB BLOOD ORDERABLES Final Resul t [facility] [address] [place] [address], [place] [phone] * XR Chest 1 View (03/04/2024 1:10 [...] Signed Date: 03/06/2024 09:23 ET Workstation ID: [id number] Transcribed By: Self Edit Transcribed Date: 03/06/2024 [...] Signed Date: 03/06/2024 09:23 ET Workstation ID: [id number] Transcribed By: Self Edit Transcribed Date: 03/06/2024 09:21 ET us Jaxson Lawler MD IMG XR PROCEDURES Final Result * Thyroid stimulating hormone (03/03/2024 6:12 AM EST) TSH 1.36 0.40 - 4.00 mcIU/mL LAB CHEMISTRY METHOD 03/03/2024 2:53 PM EST [facility] ([facility]) [facility] Blood Venous blood specimen / Unknown Venipuncture / Unknown 03/03/2024 6:12 AM EST 03/03/2024 6:42 AM EST us Kaitlin Desai MD LAB BLOOD ORDERABLES Final Res ult Performing Organization Address City/[facility]/ZIP Co de Phone Number [facility] [address] [place] [address], [place] [phone] * MRSA molecular study (03/02/2024 10:15 AM EST) MRSA Screen PCR Not Detected Not Detected LAB MICROBIOLOGY METHOD 03/02/2024 12:43 PM EST [facility] Swab Nasopharyngeal structure / Unknown Non-blood Collection / Unknown 03/02/2024 10:15 AM EST 03/02/2024 10:38 AM EST Key Kirby NP LAB MICROBIOLOGY - GENERAL ORD ERABLES Final Result Performing Organization Address [facility] Co de Phone Number [facility] [address] [place] [address], [place] [phone] * CT Angio Chest wo and/or w [...] at 5 days 03/07/2024 7:01 AM EST [facility] Blood Venous blood specimen / Unknown Venipuncture / Unknown 03/02/2024 1:43 AM EST 03/02/2024 1:52 AM EST Gale Sandoval MD LAB MICROBIOLOGY - GENER AL ORDERABLES Final Result [facility] [address] [place] [address], [place] [phone] * Respiratory virus panel molecular study (03/02/2024 1:33 AM EST) Pathologist [facility] Adenovirus Detection by PCR Not Detected Not Detected LAB MICROBIOLOGY METHOD 03/02/2024 2:53 AM EST [facility] Influenza A PCR Not Detected Not Detected LAB MICROBIOLOGY METHOD 03/02/2024 2:53 AM EST [facility] Influenza B PCR Not Detected Not Detected LAB MICROBIOLOGY METHOD 03/02/2024 2:53 AM EST [facility] Coronavirus 229E Not Detected Not Detected LAB MICROBIOLOGY METHOD 03/02/2024 2:53 AM EST [facility] Coronavirus HKU1 Not Detected Not Detected LAB MICROBIOLOGY METHOD 03/02/2024 2:53 AM [facility] Coronavirus OC43 Not Detected Not Detected LAB MICROBIOLOGY METHOD 03/02/2024 2:53 AM EST [facility] Coronavirus NL63 Not Detected Not Detected LAB MICROBIOLOGY METHOD 03/02/2024 2:53 AM EST [facility] Parainfluenza Virus 1 Not Detected Not Detected LAB MICROBIOLOGY METHOD 03/02/2024 2:53 AM [facility] Parainfluenza Virus 2 Not Detected Not Detected LAB MICROBIOLOGY METHOD 03/02/2024 2:53 AM [facility] Parainfluenza Virus 3 Not Detected Not Detected LAB MICROBIOLOGY METHOD 03/02/2024 2:53 AM EST [facility] Parainfluenza Virus 4 Not Detected Not Detected LAB MICROBIOLOGY METHOD 03/02/2024 2:53 AM [facility] RSV PCR Not Detected Not Detected LAB MICROBIOLOGY METHOD 03/02/2024 2:53 AM [facility] Human Metapneumovirus A and B Not Detected Not Detected LAB MICROBIOLOGY METHOD 03/02/2024 2:53 AM [facility] Rhinovirus/Entero virus Not Detected Not Detected LAB MICROBIOLOGY METHOD 03/02/2024 2:53 AM EST [facility] Bordetella pertussis Not Detected Not Detected LAB MICROBIOLOGY METHOD 03/02/2024 2:53 AM EST [facility] Bordetella parapertussis Not Detected Not Detected LAB MICROBIOLOGY METHOD 03/02/2024 2:53 AM EST [facility] Mycoplasma pneumo by PCR Not Detected Not Detected LAB MICROBIOLOGY METHOD 03/02/2024 2:53 AM EST [facility] Chlamydia pneumoniae Not Detected Not Detected LAB MICROBIOLOGY METHOD 03/02/2024 2:53 AM EST [facility] SARS COV-2 Not Detected Not Detected LAB MICROBIOLOGY METHOD 03/02/2024 2:53 AM EST [facility] Swab Both anterior nares / Unknown Non-blood Collection / Unknown 03/02/2024 1:33 AM EST 03/02/2024 1:53 AM EST Narrative [facility] - 03/02/2024 2:53 AM EST Testing was performed using the IMScouting Respiratory Pathogen PCR Assay. All results must [...] that are below the limit of detection. Gale Sandoval MD LAB MICROBIOLOGY - [facility] AL ORDERABLES Final Result [facility] [address] [place] [address], * Rapid strep A screen (03/02/2024 1:33 AM EST) Strep A Ag Negative Negative, Invalid 03/02/2024 4:19 AM EST [facility] Comment:Refer to Throat Cult ure. Swab Structure of anterior portion of neck / Unknown Non-blood Collection / Unknown 03/02/2024 1:33 AM EST 03/02/2024 1:53 AM EST Gale Sandoval MD LAB MICROBIOLOGY - GENER AL ORDERABLES Final Result Performing Organization Address [facility]/ZIP Co de Phone Number [facility] [address] [place] [address], [place] [phone] * Culture throat (03/02/2024 1:33 AM EST) Pathologist [facility] Culture, Throat No pathogens isolated. 03/04/2024 12:51 PM EST [facility] Swab Structure of anterior portion of neck / Unknown Non-blood Collection / Unknown 03/02/2024 1:33 AM EST 03/02/2024 1:53 AM EST Gale Sandoval MD LAB MICROBIOLOGY - GENER AL ORDERABLES Final Result Performing Organization Address [facility] Co de Phone Number [facility] [address] [place] [address], [place] [phone] * Lactate, with reflex (03/02/2024 1:31 AM EST) [facility] LACTIC ACID 1.8 0.4 - 2.0 mmol/L LAB CHEMISTRY METHOD 03/02/2024 2:31 AM EST [facility] Blood Venous blood specimen / Unknown Venipuncture / Unknown 03/02/2024 1:31 AM EST 03/02/2024 1:53 AM EST Gale Sandoval MD LAB BLOOD ORDERABLES Fin al Result Performing Organization Address City/[facility]/ZIP Co de Phone Number [facility] [address] [place] [address], [place] [phone] * Green LI heparin tube (03/02/2024 1:31 AM EST) [facility] Extra Tube Hold for add-ons. 03/02/2024 3:06 AM [facility] Comment:Auto resulted. Blood Venous blood specimen / Unknown 03/02/2024 1:31 AM EST 03/02/2024 1:52 AM EST us Gale Sandoval MD LAB BLOOD ORDERABLES Fin al Result [facility] [address] [place] [address], * (ABNORMAL) Hepatic function panel (03/02/2024 1:31 AM EST) Total Protein 7.5 6.0 - 8.0 g/dL [...] MD LAB BLOOD ORDERABLES Fin al Result [facility] [address] [place] [address], [place] [phone] * (ABNORMAL) Urinalysis with reflex microscopic and culture (03/01/2024 8:50 PM EST) Specific [place] Urine 03/01/2024 9:53 PM EST [facility] Comment:Unable to interpret due to [...] interference. Ketones, Urine 03/01/2024 9:53 PM EST [facility] Comment:Unable to interpret due to color interference. Urobilinogen, Urine 03/01/2024 9:53 PM [facility] [...] PM EST 03/01/2024 9:22 PM EST [facility] LAB URINE ORDERABLES Final Resu lt [facility] [address] [place] [address], [place] [phone] * [place] urine culture tube (03/01/2024 8:50 PM EST) Extra Tube Hold for add-ons. 03/01/2024 11:01 PM EST [facility] Comment:Auto resulted. Urine Urine specimen obtained by clean catch procedure / Unknown Non-blood Collection / Unknown 03/01/2024 8:50 PM EST 03/01/2024 9:22 PM EST [employer] [facility] LAB URINE ORDERABLES Final Resu lt Performing Organization Address City/[facility]/ZIP Co de Phone Number [facility] [address] [place] [address], [place] [phone] * Culture urine (03/01/2024 8:50 PM EST) Culture, Urine 10,000-49,000 CFU/mL Mixed urogenital adrian, no uropathogens present. Suggest repeat specimen if clinically indicated. 03/03/2024 10:48 AM EST [facility] Urine Urine specimen obtained by clean catch procedure / Unknown Non-blood Collection / Unknown 03/01/2024 8:50 PM EST 03/01/2024 9:53 PM EST us Theron Jimenes DO LAB MICROBIOLOGY - GENERAL KETTY [place] Final Result [facility]) [facility] [address] [place] [address], [place] [phone] * MATHEUS SCREENING DIGITAL (04/25/2023 1:50 PM EST) Anatomical Region Laterality Modality Mammography 04/25/2023 10:4 8 AM EST Narrative 04/25/2023 1:50 PM EST [facility] Diagnostic Imaging Department [address] [place] [address] Patient: ??CHULA ZAVALA ?/Age/Sex: 1955 - 67 - F Unit#: ??[id number] ? Location/Status: ??SPDIMAM/REG CLI ? Mnemonic/Ordering Site: ??DIGSC/SPMAM Ordering Physician: ??CALLUM RITTER MD [facility] Screening Digital - 04/25/23 - 1107 Report Status:Signed EXAM: [facility] Screening Digital EXAM DATE AND TIME: 04/25/2023 11:07 AM HISTORY: ??Annual screening COMPARISON: ??Multiple exams dating back to 2014 TECHNIQUE: Bilateral digital breast tomosynthesis was performed in the CC and MLO projections. Computer aided detection with Internet college internation S.L. 3D 3.1 was employed. TISSUE DENSITY: b. [...] Procedure Note Christa Vallecillo MD - 10/09/2023 [facility] Diagnostic Imaging Department [address] [place] [address] Patient: CHULA ZAVALA /Age/Sex: 1955 - 67 - F Unit#: [id number] Location/Status: SPDIMAM/REG CLI Mnemonic/Ordering Site: DIGSC/SPMAM Ordering Physician: CALLUM RITTER MD [facility] Screening Digital - 04/25/23 - 1107 Report Status:Signed EXAM: [facility] Screening Digital EXAM DATE AND TIME: 04/25/2023 11:07 AM HISTORY: Annual screening COMPARISON: Multiple exams dating back to 2014 TECHNIQUE: Bilateral digital breast tomosynthesis was performed in the CCand MLO projections. Computer aided detection with Internet college internation S.L. 3D 3.1was employed. TISSUE DENSITY: b. There [...] Most Recently Relevant to Health Maintenance Insurance [facility] MEDIC[facility] Member Subscriber Plan / Payer (Ef fective 2020-Present) Name:Chula Zavala Relation to Subscriber:Self Name:Chula Zavala Payer ID:[id number] Group ID:[id number] Type:Not on file Address: [address] [place] [address] Advance Directives Documents on File Type Date Recorded Patient Nutrition Partner Expl anation Advance Directives and Living Will 03/11/2024 9:09 AM Advance Directives and Living Will 03/07/2024 2:50 PM Brant Zavala [facility] Care Proxy * Full Code - Default (Latest Code Status on File) Date Activated Date Inactivated Comments 05/16/2024 4:39 PM 05/17/2024 6:28 PM This is orde r is used when code status has not been discussed with the patient, or code status is otherwise unknown/unconfirmed To update the patient's code status, place a code status order. Do not modify or discontinue any currently active code status orders. * Full Code - Default Date Activated Date Inactivated Comments 03/02/2024 6:20 AM 03/10/2024 1:44 PM This is orde r is used when code status has not been discussed with the patient, or code status is otherwise unknown/unconfirmed To update the patient's code status, place a code status order. Do not modify or discontinue any currently active code status orders. Healthcare Agents on File Name Relationship Healthcare Agent [facility] Communication Brant Zavala [facility] Health Care Agent Care Teams Studio Operations Manager Relationship Specialty Start Date End Date Callum Ritter MD [address] [place] [address] PCP - General 03/17/22
--- OUTSIDE RECORDS SUMMARY | 2024-05-21 14:11 | XMS_ITS | Encounter Summary ---
Author Organization [facility] Address [address] [place] [address] Care Team Providers Care Observer [employer] Name Role Phone Callum Muñoz MD Primary Care Provider [phone] Reason for Visit * Reason Onset Date Comments Anticoagulation 05/14/2024 Colonoscopy and EGD on 06/12/24 Encounter Details Date Type Department Care Team ([facility] Contact Info) Description 05/14/2024 Telephone Gastroenterology - [place] [address] [facility] [address] [place] [address] Dulce Maria Rosas LPN Anticoagulation (Colonoscopy and EGD on 06/12/24) Social History Tobacco Use Types Packs/Day Years [...] as of this encounter Progress Notes * Dulce Maria Rosas LPN - 05/14/2024 11:50 AM EDT Colonoscopy and EGD on 06/12/24. Can pt hold coumadin for 5 days before procedures? Will she need a lovenox bridge? Left msg with Moira at [facility] Cardio, Dr Izaguirre, . documented in this encounter Plan of Treatment Upcoming Encounters Date Type Department Care Team (Late st Contact Info) Description 06/12/2024 12:30 PM EDT Appointment [facility] Endoscopy [address] [place] [phone] Jacobo Pope MD [address] [address] documented as of this encounter Visit Diagnoses Not on filedocumented in this encounter Care Teams Observer [employer] Relationship Specialty Start Date End Date Callum Muñoz MD [address] [place] [address] PCP - General 03/17/22 documented as of this encounter
== END 2024-05-21 12:59 | disposition home or self-care (01) ==
PROVIDERS: PCP Internal Medicine; Visit Provider Internal Medicine
DX: I25.2 Old myocardial infarction (principal); Z09 Encounter for follow-up examination after completed treatment for conditions other than malignant neoplasm; K11.21 Acute sialoadenitis; Z85.01 Personal history of malignant neoplasm of esophagus; Z95.2 Presence of prosthetic heart valve; E78.9 Disorder of lipoprotein metabolism, unspecified; I10 Essential (primary) hypertension; Z91.09 Other allergy status, other than to drugs and biological substances; K21.9 Gastro-esophageal reflux disease without esophagitis; I51.7 Cardiomegaly; K22.719 Barrett's esophagus with dysplasia, unspecified; Z60.3 Acculturation difficulty

== ENCOUNTER → 2024-05-21 11:50 | Outpatient (BNVA) | payer OTHER, SELFPAY | PROVIDERS: PCP Internal Medicine; Visit Provider Internal Medicine | DX: Z09 Encounter for follow-up examination after completed treatment for conditions other than malignant neoplasm (principal); I25.2 Old myocardial infarction; K11.21 Acute sialoadenitis; Z85.01 Personal history of malignant neoplasm of esophagus; E78.9 Disorder of lipoprotein metabolism, unspecified; I10 Essential (primary) hypertension; Z91.09 Other allergy status, other than to drugs and biological substances; K21.9 Gastro-esophageal reflux disease without esophagitis; I51.7 Cardiomegaly; K22.719 Barrett's esophagus with dysplasia, unspecified; Z60.3 Acculturation difficulty; Z75.8 Other problems related to medical facilities and other health care; R93.89 Abnormal findings on diagnostic imaging of other specified body structures | CPT/HCPCS: 99212 ==